=== PATIENT | female | born 1975 | race Caucasian/White ===

== ENCOUNTER 2024-03-29 09:26 | Outpatient (CLI) | payer OTHER, SELFPAY | END 2024-03-29 09:27 | disposition home or self-care (01) | PROVIDERS: Visit Provider Family Medicine | DX: R63.5 Abnormal weight gain (principal); Z13.29 Encounter for screening for other suspected endocrine disorder | CPT/HCPCS: 84439; 84443 ==

== ENCOUNTER 2024-04-26 10:44 | Emergency (ER) | payer BC, SELFPAY ==
[2024-04-26 11:23] VITALS: BP 124/90; PULSE 100; RESP 18; TEMP 36.5; O2SAT 98; BMI 28.9
--- NOTE | 2024-04-26 12:27 | CRLHL7_ITS ---
For Patients: As a result of the Century Cures Act, medical imaging exams and procedure reports are released immediately into your electronic medical record. You may view this report before your referring provider. If you have questions, please contact your health care provider. INDICATION: Left pelvic pain, bleeding. History of ablation and tubal ligation. TECHNIQUE: Ultrasound pelvis transvaginal. Real-time sonographic images with spectral and color Doppler imaging of the ovaries were obtained. COMPARISON: None available. FINDINGS: Uterus: 8.6 x 5.0 x 5 0 cm. Heterogeneous hypoechoic likely intramural fibroid along the posterior aspect of the uterine body measures 3.5 x 2.5 x 3.3 cm. Endometrium: Endometrial stripe is distended measuring 24 mm in thickness. The fundal endometrial cavity is distended and heterogeneous in appearance, measuring 2.5 x 1.7 x 2.0 cm. No definite internal blood flow is seen within this region on color Doppler. There are punctate echogenic foci along the margins of the distended endometrial cavity. Right ovary 2.4 x 1.9 x 1.5 cm (volume 3.6 mL). Left ovary 2.7 x 1.8 x 1.9 cm (volume 5 mL). No ovarian or adnexal masses. Normal arterial and venous blood flow is demonstrated in the right ovary. Venous spectral Doppler waveforms were seen within the left ovary; however, arterial waveforms were difficult to obtain due to deep pelvic position of the ovary. Cul-de-sac: No significant free fluid. IMPRESSION: : 1. Distended fundal endometrial stripe with heterogeneous avascular internal contents. Findings are favored to represent blood products that appear localized possibly due to endometrial septations related to prior ablation. Punctate echogenic endometrial foci may represent small calcifications versus gas. Recommend gynecologic consultation and correlation for signs and symptoms of infection. Repeat imaging should be performed to evaluate for resolution. 2. Heterogeneous 3.5 cm probable intramural fibroid along the posterior uterine body. 3. Normal sonographic appearance of the ovaries. Left ovarian arterial blood flow was difficult to obtain due to deep pelvic positioning. Spectral waveforms were otherwise unremarkable. Dictated by Ignacia Ribera MD @ 04/26/2024 1:34:33 PM (Electronically Signed)
--- NOTE | 2024-04-26 13:04 | ED_ITS ---
HPI - General Adult General Date Seen: 04/26/24 Chief complaint: Abdominal Pain Stated complaint: Bad cramps and spotting Time Seen by Provider: 04/26/24 12:14 Source: patient Mode of arrival: ambulatory Limitations: no limitations History of Present Illness HPI narrative: Patient is a 48-year-old female presenting to the emergency department for pelvic pain and vaginal bleeding. States for the past 2 or 3 days she has been having some spotting and left-sided pelvic pain. She states is typically a cramping sensation but occasionally get sharp in nature. Denies ever having symptoms like this before. States she has not had a period in over 20 years due to an ablation she had due to heavy vaginal bleeding 20+ years ago. States she does not remember having menstrual cramping this bad. States the pain is tolerable right now. Will occasionally get nausea with the pain but is currently not nauseated. Nothing particular makes it better or worse. Describes the bleeding as just spotting relatively minor. Has not noticed any abdominal pain. No history of ovarian cyst. Denies fevers, chills, chest pain, shortness of breath, lightheadedness, dizziness, weakness, numbness. No other concerns noted at this time. Has had multiple previous abdominal surgeries including tubal ligation and cholecystectomy. States this morning she noticed some dark runny stool. Related Data Home Medications ?Medication ?Instructions ?Recorded ?Confirmed cyclobenzaprine 10 mg tablet 10 mg PO BID PRN 02/27/24 03/29/24 dextroamphetamine-amphetamine ER cap PO .ud 03/29/24 03/29/24 10 mg 24hr capsule,extend release Previous Rx's ?Medication ?Instructions ?Recorded zolpidem 10 mg tablet 10 mg PO QHS PRN sleep #14 tabs 02/27/24 dextroamphetamine-amphetamine ER 20 mg PO QAM #30 caps 03/29/24 20 mg 24hr capsule,extend release phentermine 30 mg capsule 30 mg PO QDAY #30 caps 03/29/24 prazosin 1 mg capsule 1 mg PO QHS #30 caps 03/29/24 levothyroxine 25 mcg tablet 25 mcg PO QDAY #90 tabs 04/01/24 clonazepam 0.5 mg tablet See Rx Instructions PO .ud #45 tabs 04/25/24 amoxicillin 875 mg-potassium 1 tab PO BID #10 tabs 04/26/24 clavulanate 125 mg tablet ketorolac 10 mg tablet 10 mg PO Q6H PRN pain #20 tabs 04/26/24 medroxyprogesterone 10 mg tablet 20 mg (2 x 10 mg) PO TID 5 days 04/26/24 (Provera) #30 tabs Allergies Allergy/AdvReac Type Severity Reaction Status Date / Time prochlorperazine (From Allergy Severe Anaphylaxis Verified 03/29/24 08:41 Compazine) promethazine (From Phenergan) Allergy Severe Anaphylaxis Verified 03/29/24 08:41 Review of Systems Status of ROS: Reports: 10 or more systems reviewed and unremarkable except as noted in History and below [facility] Medical History Sleep deprivation ?Z72.820 - Sleep deprivation (ICD-10) Surgical History Status post breast biopsy ?Z98.890 - Other specified postprocedural states (ICD-10) Status post breast reduction ?Z98.890 - Other specified postprocedural states (ICD-10) Status post bilateral cataract extraction ?Z98.41 - Cataract extraction status, right eye (ICD-10) ?Z98.42 - Cataract extraction status, left eye (ICD-10) Status post LASIK surgery ?Z98.890 - Other specified postprocedural states (ICD-10) Status post tonsillectomy and adenoidectomy ?Z90.89 - Acquired absence of other organs (ICD-10) Status post cholecystectomy ?Z90.49 - Acquired absence of other specified parts of digestive tract (ICD- 10) Status post appendectomy ?Z90.49 - Acquired absence of other specified parts of digestive tract (ICD- 10) History of shoulder surgery ?Z98.890 - Other specified postprocedural states (ICD-10) Status post arthroscopy of right knee ?Z98.890 - Other specified postprocedural states (ICD-10) Status post left knee surgery ?Z98.890 - Other specified postprocedural states (ICD-10) Social History Smoking Status: Former smoker What tobacco products do you use: cigarettes Smoking packs per day: 0.3 Smoking cigarettes per day: 6.0 Years smoked: 3 Smoking pack-years: 0.90 Do you use any of these nicotine containing products: None Second hand tobacco smoke exposure: No How often do you have a drink containing alcohol: monthly or less AUDIT-C Alcohol total score: 1 Non-prescribed substance use: denies use service: No Exam Narrative: Exam Narrative: Const: Well-nourished, Well-developed, in mild distress Eyes: PERRL, no conjunctival injection, and symmetrical lids HENT: Atraumatic external nose and ears. Moist mucous membranes. Neck: Symmetric, trachea midline, No thyromegaly. CVS: RRR, No murmurs or gallops. Peripheral pulses 2+ and equal in all extremities RESP: Unlabored respiratory effort. Clear to auscultation bilaterally. GI: Nontender/Nondistended, No rebound or guarding. : Mild left-sided pelvic tenderness MSK:Extremities w/o deformity, Normal Active ROM Skin: Warm, Dry. No rashes or lesions. Neuro: Normal Muscle tone, No focal neurological deficits. Psych: Awake, Alert, & Oriented x3. Appropriate mood and affect. Const: Vital Signs, click to edit/add: Vital Signs - 24 hr 04/26/24 11:23 04/26/24 14:15 Temperature 97.7 F Pulse Rate [Pulse Oximeter] 100 82 Respiratory Rate 18 18 Blood Pressure [Ri ght Upper Arm] 124/90 H 146/100 H Pulse Oximetry 98 99 Oxygen Delivery Me thod Room Air Course Vital Signs Vital signs: Initial Vital Signs Temperature 97.7 F 04/26/24 11:23 Temperature Source Temporal Artery Scan 04/26/24 11:23 Pulse Rate 100 04/26/24 11:23 Respiratory Rate 18 04/26/24 11:23 Blood Pressure 124/90 H 04/26/24 11:23 Blood Pressure Mean 101 04/26/24 11:23 Pulse Oximetry 98 04/26/24 11:23 Vital Signs Temperature 97.7 F 04/26/24 11:23 Pulse Rate 100 04/26/24 11:23 Respiratory Rate 18 04/26/24 11:23 Blood Pressure 124/90 H 04/26/24 11:23 Pulse Oximetry 98 04/26/24 11:23 Temperature 97.7 F 04/26/24 11:23 Pulse Rate 82 04/26/24 14:15 Respiratory Rate 18 04/26/24 14:15 Blood Pressure 146/100 H 04/26/24 14:15 Pulse Oximetry 99 04/26/24 14:15 Oxygen Delivery Method Room Air 04/26/24 14:15 Medical Decision Making MDM Narrative Medical decision making narrative: Patient is a 48-year-old female presenting to the emergency department for vaginal bleeding and pelvic pain. Have some my are concern for intermittent ovarian torsion and will do an ultrasound. This also help evaluate for any time endometrial cancer or other abnormalities. Will order a CBC, BMP, test for better evaluation possible anemia or other abnormalities. She is not having any abdominal pain at this time I do not believe a CT scan is necessary but will continue to monitor and re-evaluate as test come back. She is not requesting anything for pain or nausea at this time. Lab work shows elevated white count 17.74. Ultrasound shows findings consistent with endometrial septations from her prior ablation. I spoke to Dr. Gamez of [facility] and she came to evaluate the patient. She believes the patient has a complication from her previous ablation that is now becoming infected. She evaluated the patient did take some samples. At this time recommends Augmentin b.i.d. for 5 days, Provera 20 mg t.i.d. for 5 days and Toradol for pain. I will give her a shot of Toradol prior to discharge. She has been stable throughout her time in the emergency department and she is safe for discharge. She is agreeable to this plan Lab Data Labs: Lab Results 04/26/24 Range/Units 12:53 WBC 17.74 H (4.50-11.00) K/uL RBC 4.76 (4.00-5.20) m/uL Hgb 14.9 (12.0-16.0) gm/dL Hct 44.3 (33.0-51.0) % MCV 93 (80-100) fL MCH 31 (26-34) pg MCHC 34 (32-36) gm/dL RDW Coeff of Jessa 12.0 (11.5-15.5) % Plt Count 282 (140-440) K/uL Neut % (Auto) 77.5 H (42.0-72.0) % Lymph % (Auto) 15.3 L (20-44) % [place] % (Auto) 5.8 (0.0-11.0) % Eos % (Auto) 1.1 (0.0-7.0) % Baso % (Auto) 0.1 (0.0-3.0) % Neut # (Auto) 13.70 H (1.7-7.0) K/uL Lymph # (Auto) 2.70 (0.90-2.90) K/uL [place] # (Auto) 1.00 H (0.00-0.90) K/UL Eos # (Auto) 0.20 (0.00-0.50) K/uL Baso # (Auto) 0.00 (0.00-0.30) K/uL Abs Immat Gran (auto) 0.00 (0.00-0.30) K/uL Imm/Tot Granulo (auto) 0.2 % Sodium 139 (135-149) mmol/L Potassium 3.9 (3.6-5.1) mmol/L Chloride 102 (96-114) mmol/L Carbon Dioxide 29 (20-32) mmol/L Anion Gap 8 (7-15) mEq/L BUN 13 (5-24) mg/dL Creatinine 0.8 (0.5-1.5) mg/dL Estimated Creat Clear 67.28 Estimated GFR 90 ml/min Glucose 93 (60-115) mg/dL Calcium 9.6 (8.4-10.6) mg/dL HCG, Qual Negative (Negative) Imaging Data Transvaginal ultrasound: Attestation: I have reviewed the pertinent imaging results. Radiologist's impression: 1. Distended fundal endometrial stripe with heterogeneous avascular internal contents. Findings are favored to represent blood products that appear localized possibly due to endometrial septations related to prior ablation. Punctate echogenic endometrial foci may represent small calcifications versus gas. Recommend gynecologic consultation and correlation for signs and symptoms of infection. Repeat imaging should be performed to evaluate for resolution. 2. Heterogeneous 3.5 cm probable intramural fibroid along the posterior uterine body. 3. Normal sonographic appearance of the ovaries. Left ovarian arterial blood flow was difficult to obtain due to deep pelvic positioning. Spectral waveforms were otherwise unremarkable. Dictated by Ignacia Ribera MD @ 04/26/2024 1:34:33 PM Discharge Plan Discharge Clinical Impression: Pelvic pain Patient Disposition: Home, Self-Care Condition: Stable Instructions: Pelvic Pain in Women (ED) Additional Instructions: Take Tylenol and the Toradol as needed for your pain. Take the Augmentin as directed. May she also take Provera of 3 times a day. [facility] They will get you on the schedule. Prescriptions: New ketorolac 10 mg tablet 10 mg PO Q6H PRN (Reason: pain) Qty: 20 0RF Rx Instructions: maximum total duration of 5 days from all oral, intranasal, or parenteral formulations amoxicillin-pot clavulanate 875-125 mg tablet 1 tab PO BID Qty: 10 0RF medroxyprogesterone [Provera] 10 mg tablet 20 mg PO TID 5 Days Qty: 30 0RF No Action prazosin 1 mg capsule 1 mg PO QHS Qty: 30 3RF phentermine 30 mg capsule 30 mg PO QDAY Qty: 30 2RF Rx Instructions: must administer 2 hours after breakfast dextroamphetamine-amphetamine 20 mg capsule,extended release 24hr 20 mg PO QAM Qty: 30 0RF cyclobenzaprine 10 mg tablet 10 mg PO BID PRN zolpidem 10 mg tablet 10 mg PO QHS PRN (Reason: sleep) Qty: 14 1RF dextroamphetamine-amphetamine 10 mg capsule,extended release 24hr PO .ud Rx Instructions: 2 tabs qam/ 1 tab in afternoon levothyroxine 25 mcg tablet 25 mcg PO QDAY Qty: 90 1RF clonazepam 0.5 mg tablet See Rx Instructions PO .ud Qty: 45 2RF Rx Instructions: 1-2 at bedtime prn Follow Up/Referrals: Vaibhav Smyth MD [Primary Care Provider] - Stand Alone Forms: Undertone Info Instructions
--- OUTSIDE RECORDS SUMMARY | 2024-04-26 13:07 | XMS_ITS | Clinical Summary ---
Author Organization [facility] Address [address] [place] [address] Care Team Providers Care Legal Instructor Name Role Phone Alma Valencia Tyler PT Unavailable [phone] Leonor Draper MD Unavailable Jerri Fink RN Unavailable + [phone] Theresa Carpio MD Primary Care Provider [phone] Theresa Carpio MD Unavailable [phone] Rahul Orourke MD Unavailable [phone] Allergies Active Allergy Reactions Criticality Noted Date Comments Prochlorperazine Other (See Comments) 5 Seizure Promethazine Anaphylaxis High 08/08/2016 Not allergic to codiene Promethazine Hcl Other (See Comments) 3 Seizure Phenergan Medications aspirin-acetaminop hen-caffeine (EXCEDRIN MIGRAINE) 250-250-65 MG per tablet Take 2 tablets by mouth as needed Active metoclopramide (REGLAN) 10 MG tablet Take 1 tablet (10 mg) by mouth 4 times daily as needed (Nausea and vomiting) 20 tablet 3 Active albuterol (PROAIR HFA/PROVENTIL HFA/VENTOLIN HFA) 108 (90 Base) MCG/ACT inhalerIndications :Mild intermittent asthma without complication Inhale 2 puffs into the lungs every 6 hours as needed for shortness of breath, wheezing or cough 18 g 1 3 Active VYVANSE 60 MG capsuleIndications :Attention deficit disorder, unspecified hyperactivity presence Take 1 capsule (60 mg) by mouth every morning 30 capsule 3 Active Active Problems Problem Noted Date Diagnosed Date ADD (attention deficit disorder) 12/26/2022 Medical marijuana use 12/26/2022 Overview (12/26/2022): For migraines H/O bilateral breast reduction surgery 3 Dyslipidemia 01/25/2017 Intractable chronic migraine without aura and without status migrainosus 09/07/2016 GERD (gastroesophageal reflux disease) 3 Asthma, mild intermittent 07/03/2012 Obesity 07/03/2012 Seasonal allergic rhinitis 07/03/2012 H/O combined form of nonsenile cataract 06/29/19 13 Resolved Problems Problem Noted Date Diagnosed Date Resolved Date Pain in joint, lower leg 06/30/2008 Overview (04/18/2019): Overview: IMO Update 01/11 Immunizations Name Administration Dates Next Due COVID-19 MONOVALENT 12+ (Pfizer) 05/21/2020,04/04 Flu, Unspecified 12/31/2011 [id number] Novel Flu- Nasal 01/23/2009 Influenza (H1N1) 01/23/2009 Influenza (IIV3) PF 04/01/2014, 1,03/25/2010,2008 Influenza Vaccine >6 months,quad, PF ,02/02/2018,01/11/2017,2015,02/13/2015,01/03/2013 Influenza, Whole Virus 02/06/2008,01/16/2007 MMR 09/21/2005 Meningococcal ACWY (Menactra ) 07/21/2011 Mumps 11/22/2005 TD,PF 7+ (Tenivac) 11/22/2005 TDAP Vaccine (Adacel) 11/11/2011 Family History Medical History Relation Comments Heart Disease Father irregular heartb eat C.A.D. Other 1 grandparents Diabetes Other 2 grandparents Hyperlipidemia Other 2 Hypertension Other 2 Other - See Comments Other 3 maternal fx multiple births Asthma No family hx of Breast Cancer No family hx of Colon Cancer No family hx of Thyroid Disease No family hx of Relation Status Comments Father Alive Mother Alive Other 1 Other 2 Other 3 Social History Tobacco Use Types Packs/Day Years Used Date Smoking Tobacco: Former Cigarettes 1 3 0 07/29/1993 - 07/29/1996 Smokeless Tobacco: Never Tobacco Cessation:Counseling Given: Not Answered Comments:no passive exposure Alcohol Use Standard Drinks/Week Comments No 0 (1 standard drink = 0.6 oz pur e alcohol) PHQ-2 Answer Date Recorded PHQ-2 Score 0 12/26/2022 Adolescent Education Answer Date Record ed Getting School Help Needed Not on file 12/23 Food Insecurity Answer Date Recorded Within the past 12 months, d id you worry that your food would run out before you got money to buy more? No 12/26/2022 Within the past 12 months, d id the food you bought just not last and you didn t have money to get more? No 12/26/2022 Housing Stability Answer Date Recorded Do you have housing? (Breanna g is defined as stable permanent housing and does not include staying ouside in a car, in a tent, in an abandoned building, in an overnight halfway, or couch-surfing.) Yes 12/26/2022 Are you worried about losing your housing? No 12/26/2022 Financial Resource Strain Answer Date R ecorded Within the past 12 months, h ave you or your family members you live with been unable to get utilities (heat, electricity) when it was really needed? No 12/26/2022 Transportation Needs Answer Date Record ed Within the past 12 months, h as lack of transportation kept you from medical appointments, getting your medicines, non-medical meetings or appointments, work, or from getting things that you need? No 12/26/2022 Interpersonal Safety Answer Date Record ed Do you feel physically and e motionally safe where you currently live? Yes 12/26/2022 Within the past 12 months, h ave you been hit, slapped, kicked or otherwise physically hurt by someone? No 12/26/2022 Within the past 12 months, h ave you been humiliated or emotionally abused in other ways by your partner or ex-partner? 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 Not on file Last Filed Vital Signs Vital Sign Reading Time Taken Comments Blood Pressure 124/80 01/25/2023 9:15 AM CDT Pulse 89 01/25/2023 9:15 AM CDT Temperature 36.3 C (97.3 F) 01/25/2023 9:15 AM CDT Respiratory Rate 14 01/09/2023 11:25 AM CDT Oxygen Saturation 100% 01/25/2023 9:15 AM CDT Inhaled Oxygen Concentration - - Weight 70.3 kg (155 lb) 01/25/2023 9:15 AM CDT Height 157.5 cm (5' 2) 01/25/2023 9:15 AM CDT Body Mass Index 28.35 01/25/2023 9:15 AM CDT Plan of Treatment Health Maintenance Due Date Last Done Comments ANNUAL REVIEW OF HM ORDERS 1974 CT COLONOGRAPHY 1974 FIT 1974 FLEX SIG 1974 sDNA (Cologuard) 1974 HEPATITIS B IMMUNIZATION (1 of 3 - 19+ 3-dose series) 1993 Pneumococcal Vaccine: Pediatrics (0 to 5 Years) and At-Risk Patients (6 to 49 Years) (1 of 2 - PCV) 1993 ASTHMA ACTION PLAN 06/14/2017 06/14/2016, 0 06/14/2016, 06/14/2016 LIPID 01/12/2018 01/12/2017 HPV TEST 09/15/2019 09/14/2018, 01/11/2017 PAP 09/15/2019 09/14/2018, 01/11/2017 YEARLY PREVENTIVE VISIT 09/15/2019 09/14/2018, 01/11 DTAP/TDAP/TD IMMUNIZATION (2 - Td or Tdap) 11/10/2021 11/11/2011, 11/22/2005 ASTHMA CONTROL TEST 06/26/2023 12/26/2022, 01/11/2017, 06/14/2016, Additional history exists COVID-19 Vaccine ( season) 2023 05/21/2020, 04/29/2020 INFLUENZA VACCINE (#1) 2023 9, 02/02/2018, 01/11/2017, Additional history exists PHQ-2 (once per calendar year) 2024 12/26/2022, 12/26/2022, 01/09/2019, Additional history exists ZOSTER IMMUNIZATION (1 of 2) 2024 MAMMO SCREENING 12/29/2024 12/29/2022 GLUCOSE 12/29/2025 12/29/2022, 12/02, 12/12/2022, Additional history exists ADVANCE CARE PLANNING 12/30/2027 12/29/2022, 017 COLONOSCOPY 01/06/2028 01/05/2023 COLORECTAL CANCER SCREENING 01/06/2028 RSV VACCINE (1 - 1-dose 75+ series) 2049 MENINGITIS IMMUNIZATION Aged Out 07/21/2011 No l onger eligible based on patient's age to complete this topic HEPATITIS C SCREENING Completed 05/28/2018 HIV SCREENING Completed 05/28/2018 HPV IMMUNIZATION Aged Out No longer e ligible based on patient's age to complete this topic RSV MONOCLONAL ANTIBODY Aged Out No l onger eligible based on patient's age to complete this topic Medical Devices Implanted Type Area Game Technician Device Identifier Shelf Expiration Date Model / Serial / Lot Lens-Tecnis Multifocal 18.0 Implanted:Qty: 1 on 07/10/2012 by Inder Magdaleno MD at [facility] Left: Eye 03/11/2016 [id number] / [id number] / Procedures Procedure Name Priority Date/Time Associated Diagnosis Comments MA DIAGNOSTIC BILATERAL W/ SIXTO Routine 12/29/2022 1:16 PM CDT Mass of upper outer quadrant of left breast COMPREHENSIVE METABOLIC PANEL Routine 12/29/2022 10:09 AM CDT Preop general physical exam A PAP THIN LAYER SCREEN Routine 09/14/2018 3:12 PM CDT Screening for cervical cancer HPV HIGH RISK TYPES DNA CERVICAL Routine 09/14/2018 3:12 PM CDT Screening for cervical cancer HEPATITIS C (HIM EXTERNAL RESULT) Routine 05/28/2018 2:31 PM SEPARATOR INSERTER HIV ANTIGEN ANTIBODY COMBO Routine 05/28/2018 LIPID PROFILE Routine 01/12/2017 7:45 AM CDT Well woman exam with routine gynecological exam ASTHMA CONTROL TEST - HIM SCAN Routine 06/14/2016 1:45 PM CDT ASTHMA ACTION PLAN Routine 06/14/2016 9: 23 AM CDT from Last 3 Months or Most Recently Relevant to Health Maintenance Results * MA Diagnostic Bilateral w/Sixto (12/29/2022 1:16 PM CDT) Anatomical Region Laterality Modality Breast Bilateral Mammography Impressions 12/29/2022 2:01 PM CDT IMPRESSION: BI-RADS CATEGORY: 4 - Suspicious. Hypoechoic mass in the left breast measuring up to 2.9 cm, for which ultrasound-guided biopsy is recommended. Crescentic hypoechoic structure at 11 o'clock in the right breast, possibly an intramammary lymph node. There is also some slightly disorganized appearing fat at 12 o'clock in the right breast. Six-month follow-up ultrasound of these findings is recommended. RECOMMENDED FOLLOW-UP: Biopsy. LINDSAY PARKS MD Narrative 12/29/2022 2:01 PM CDT EXAM: MA DIAGNOSTIC BILATERAL W/ SIXTO, US BREAST BILATERAL LIMITED 1-3 QUADRANTS, 12/29/2022 1:16 PM COMPARISONS: None. HISTORY: left upper outer - present for years - pea sized; Mass of upper outer quadrant of left breast BREAST DENSITY: Scattered fibroglandular densities. FINDINGS: There is a well-circumscribed mass at the site of the palpable abnormality in the lateral left breast. There is a subtle asymmetry in the right breast at approximately 12 o'clock. There are benign calcifications in both breasts.. Ultrasound of both breasts was performed. In the left breast, at 4 o'clock, 6 cm in the nipple, there is a hypoechoic mass measuring 2.9 x 2 x 0.9 cm. No significant internal vascularity. In the right breast at 12 o'clock, there is some slightly disorganized appearing fat, possibly scarring from prior breast reduction. At 11 o'clock in the right breast, there is a somewhat crescentic hypoechoic structure with a questionable fatty hilum measuring up to 0.6 cm, possibly an intramammary lymph node us Theresa Carpio MD IMG MAMMOGRAPHY ORDERABLES Fi nal Result * Comprehensive metabolic panel (BMP + Alb, Alk Phos, ALT, AST, Total. Bili, TP) (12/29/2022 10:09 AMCDT) Sodium 139 135 - 145 mmol/L 12/29/2022 12:24 PM CDT [facility] Comment:Reference intervals for this test were updated on 12/27/2022 to more accurately reflect our healthy population. There may be differences in the flagging of prior results with similar values performed with this method. Interpretation of those prior results can be made in the context of the updated reference intervals. Potassium 3.7 3.4 - 5.3 mmol/L 12/29/2022 12:24 PM CDT [facility] Carbon Dioxide (CO2) 23 22 - 29 mmol/L 12/29/2022 12:24 PM CDT [facility] Anion Gap 14 7 - 15 mmol/L 12/29/2022 12:24 PM CDT [facility] Urea Nitrogen 10.0 6.0 - 20.0 mg/dL 12/29/2022 12:24 PM CDT [facility] Creatinine 0.86 0.51 - 0.95 mg/dL 12/29/2022 12:24 PM CDT [facility] GFR Estimate 83 >60 mL/min/1. 73m2 12/29/2022 12:24 PM CDT [facility] Calcium 9.9 8.6 - 10.0 mg/dL 12/29/2022 12:24 PM CDT [facility] Chloride 102 98 - 107 mmol/L 12/29/2022 12:24 PM CDT [facility] Glucose 82 70 - 99 mg/dL 12/29/2022 12:24 PM CDT [facility] Alkaline Phosphatase 63 35 - 104 U/L 12/29/2022 12:24 PM CDT [facility] AST 18 0 - 45 U/L 12/29/2022 12:24 PM CDT [facility] Comment:Reference intervals for this test were updated on 09/12/2022 to more accurately reflect our healthy population. There may be differences in the flagging of prior results with similar values performed with this method. Interpretation of those prior results can be made in the context of the updated reference intervals. ALT 17 0 - 50 U/L 12/29/2022 12:24 PM CDT [facility] Comment:Reference intervals for this test were updated on 09/12/2022 to more accurately reflect our healthy population. There may be differences in the flagging of prior results with similar values performed with this method. Interpretation of those prior results can be made in the context of the updated reference intervals. Protein Total 7.1 6.4 - 8.3 g/dL 12/29/2022 12:24 PM CDT [facility] Albumin 4.8 3.5 - 5.2 g/dL 12/29/2022 12:24 PM CDT [facility] Bilirubin Total 0.6 <=1.2 mg/dL 12/29/2022 12:24 PM CDT [facility] Blood BLOOD SPECIMEN / Unknown Venipuncture / Unknown 12/29/2022 10:09 AM CDT 12/29/2022 10:09 AM CDT us Bina Chen C ENGINEER LAB - BLOOD ORDERABLES Final Result [facility] [address] Room [address] [place] [id number] [phone] * (ABNORMAL) A pap thin layer screen with HPV - recommended age 30 - 65 years (select HPV order below) (09/14/2018 3:12 PM CDT) PAP ASC-US(A) YRN Lawson Report Patient Name: SEEMA CORDERO MR#: [id number] Specimen #: [id number] Collected: 09/14/2018 Received: 09/18/2018 Reported: 09/24/2018 14:24 Ordering Phy(s): MARINA ALEJANDRO For improved result formatting, select 'View Enhanced Report Format' under Linked Documents section. SPECIMEN/STAIN PROCESS: Pap thin layer prep screening (Surepath) Pap-Cyto x 1, HPV ordered x 1 SOURCE: Cervical, endocervical Pap thin layer prep screening (Surepath) SPECIMEN ADEQUACY: Satisfactory for evaluation. -Transformation zone component present. CYTOLOGIC INTERPRETATION: Epithelial cell abnormality: squamous cell: atypical squamous cells-of undetermined significance (ASC-US). Electronically signed out by: Waqar Marie M.D. CLINICAL HISTORY: Ablation, A previous normal pap Date of Last Pap: 01/11/17, Papanicolaou Test Limitations: Cervical cytology is a screening test with limited sensitivity; regular screening is critical for cancer prevention; Pap tests are primarily effective for the diagnosis/preventi on of squamous cell carcinoma, not adenocarcinomas or other cancers. COLLECTION SITE: Client: [facility] Location: [facility] (B) The technical component of this testing was completed at the [facility], with the professional component performed at the [facility], [address] [place] [address] ([phone]) COPATH Cytologic material (specimen) 09/14/2018 3:12 PM CDT 09/18/2018 8:30 AM CDT Marina Alejandro NP LAB - OPTIME CLINICAL SPECIMEN F inal Result COPATH * HPV High Risk Types DNA Cervical (09/14/2018 3:12 PM CDT) HPV Source [facility] 09/14/2018 3:12 PM CDT [facility] HPV 16 DNA Negative NEG^Nega tive 09/25/2018 12:[address] [facility] HPV 18 DNA Negative NEG^Nega tive 09/25/2018 12:[address] [facility] Other HR HPV Negative NEG^Nega tive 09/25/2018 12:[address] [facility] Final Diagnosis This patient's sample is negative for HPV DNA. 09/25/2018 12:[address] [facility] Comment: This test was developed and its performance characteristics determined by the [facility], Molecular Diagnostics Laboratory. It has not been cleared or approved by the FDA. The laboratory is regulated under CLIA as qualified to perform high-complexity testing. This test is used for clinical purposes. It should not be regarded as investigational or for research. (Note) METHODOLOGY: The Debbie etelvina 4800 system uses automated extraction, simultaneous amplification of HPV (L1 region) and beta-globin, followed by real time detection of fluorescent labeled HPV and beta globin using specific oligonucleotide probes . The test specifically identifies types HPV 16 DNA and HPV 18 DNA while concurrently detecting the rest of the high risk types (31, 33, 35, 39, 45, 51, 52, 56, 58, 59, 66 or 68). COMMENTS: This test is not intended for use as a screening device for women under age 30 with normal cervical cytology. Results should be correlated with cytologic and histologic findings. Close clinical followup is recommended. Specimen Description Cervical Cells 09/14/2018 3:[address] [facility] Comment:[id number] Cervical Cells CERVIX UTERI STRUCTURE / Unknown 09/14/2018 3:12 PM CDT 09/17/2018 10:55 AM CDT us Marina Alejandro NP LAB - BLOOD ORDERABLES Final Res ult [facility] [address] [place], [place] [address] [place] [address] * Hepatitis C (HIM External Result) (05/28/2018 2:31 PM SEPARATOR INSERTER) Hep C HIM See Scanned Document [facility] 05/28/2018 2:31 PM SEPARATOR INSERTER Narrative [facility] - 05/28/2018 2:31 PM SEPARATOR INSERTER See Care Everywhere - [facility] us Provider Outside LAB - HIM EXTERNAL RESULT Final Result [facility] [address] [phone] * HIV Antigen Antibody Combo (05/28/2018) HIV Antigen Antibody Combo Nonreactive Nonreactive [facility] Comment:HIV Screen includes testing for HIV-1 antigen and antibodies to both HIV-1 and HIV-2. Blood specimen (specimen) 05/28/2018 Narrative [facility] - 05/28/2018 See Care Everywhere- [facility]. us Provider Outside LAB - BLOOD ORDERABLES Final Re sult [address] [address] [phone] * (ABNORMAL) Lipid Profile (01/12/2017 7:45 AM CDT) Cholesterol 275(H) <200 mg/dL 01/12/2017 5:44 PM CDT [facility] Comment:Desirable: <200 mg/d l Triglycerides 270(H) <150 mg/dL 01/12/2017 5:44 PM CDT [facility] Comment: Borderline high: 150-199 mg/dl High: 200-499 mg/dl Very high: >499 mg/dl HDL Cholesterol 40(L) >49 mg/dL 5:44 PM CDT [facility] LDL Cholesterol Calculated 181(H) <100 mg/dL 01/12/2017 5:44 PM T [facility] Comment: Above desirable: 100-129 mg/dl Borderline High: 130-159 mg/dL High: 160-189 mg/dL Very high: >189 mg/dl Non HDL Cholesterol 235(H) <130 mg/dL 01/12/2017 5:44 PM T [facility] Comment: Above Desirable: 130-159 mg/dl Borderline high: 160-189 mg/dl High: 190-219 mg/dl Very high: >219 mg/dl Blood specimen (specimen) 01/12/2017 7:45 AM CDT 01/12/2017 5:10 PM CDT [facility] LAB - BLOOD ORDERABLES Final Result [facility] [address] [address], [facility] [phone] from Last 3 Months or Most Recently Relevant to Health Maintenance [place] [facility] RISK MANAGEMENT Care Teams Legal Instructor Relationship Specialty Start Date End Date Theresa Carpio MD [address] [place] [address] PCP - General Family Medicine 12/26/22 Alma Valencia, PT [address] [facility] [address] [place] [address] Specialty Box Person Physical Medicine and Rehabilitation 02/12/19 Leonor Draper MD [address] [place] [address] [id number] Physical Medicine and Rehabilitation 02/12/19 Jerri Fink, [place] [address] Specialty Box Person Physical Medicine and Rehabilitation 02/12/19 Theresa Carpio MD [address] [place] [address] [id number] Assigned PCP 01/07/23 Rahul Orourke MD [address] [place] [address] [id number] Assigned Surgical Provider 02/04/23
--- OUTSIDE RECORDS SUMMARY | 2024-04-26 13:07 | XMS_ITS | Encounter Summary ---
Author Organization [facility] Address [facility] [place] [address] Care Team Providers Care Net Developer Name Role Phone Edilberto Lopez MD Primary Care Provider [phone] Edilberto Lopez MD Unavailable Alma Valencia PT Unavailable [phone] Loenor Draper MD Unavailable Jerri Fink RN Unavailable [phone] Leonor Draper MD Unavailable Claude Amaro MD Unavailable No Ref-Primary, Physician Primary Care Provider Theresa Carpio MD Primary Care Provider [phone] Theresa Carpio MD Unavailable [phone] Theresa Carpio MD Unavailable [phone] Paty Dacosta NP Unavailable Rahul Orourke MD Unavailable [phone] Reason for Visit * Reason Comments Medication Refill Valium Encounter Details Date Type Department Care Team (Late st Contact Info) Description 06/28/2017 [facility] [address] [facility] [place] [address] Edilberto Lopez MD [address] [facility] [place] [address] Medication Refill (Valium) Social History Tobacco Use Types Packs/Day Years Used Date Smoking Tobacco: Former Cigarettes Q uit: 07/29/1996 Smokeless Tobacco: Never Comments:no passive exposure Alcohol Use Standard Drinks/Week Comments No 0 (1 standard drink = 0.6 oz pur e alcohol) Comments No Sex and Gender Information Value Date Recorded Sex Assigned at Not on file Legal Sex Female 1:27 AM 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 * Telephone Encounter - Macie Cheek RN - 06/28/2017 2:23 PM CDT Valium Last Written Prescription Date: 12/19/16 Last Fill Quantity: 5, # refills: 0 Last Office Visit: with Dr. Lopez 01/25/17 and Sydnee Carter MD Future Office visit: Dr. Montejo 07/04/17 Routing refill request to provider for review/approval because: Drug not on the [facility], [facility] or Health refill protocol or controlled substance documented in this encounter Plan of Treatment Not on file documented as of this encounter Visit Diagnoses Diagnosis Vertigo- Primary Dizziness and giddiness documented in this encounter Additional Health Concerns Infection Onset Date Last Indicated Resolved Time Rule Out COVID-19 10/11/2019 10/11/2019 10/14/2019 5:25 PM CDT Rule Out COVID-19 02/03/2020 02/03/2020 02/04/2020 4:32 PM MARKETING DATABASE CONSULTANT Rule Out COVID-19 12/12/2022 12/12/2022 12/12/2022 1:09 PM CDT COVID-19 12/12/2022 12/12/2022 01/02/2023 11:3 9 PM CDT Assessment Noted Time PHQ-9 Depression Total Score: 0 06/11/19 18 7:58 AM MARKETING DATABASE CONSULTANT documented as of this encounter Care Teams Net Developer Relationship Specialty Start [place] [address] [place] [address] PCP - General 05/30/12 06/23/22 No Ref-Primary, Physician PCP - General 06/24/22 12/25/22 [place] [address] [place] [id number] PCP - General Family Medicine 12/26/22 Edilberto Lopez MD [address] [place] [address] Assigned PCP 12/29/13 07/18/20 Alma Valencia, PT [address] [facility] [address] [place] [address] Specialty Boiler House Supervisor Physical Medicine and Rehabilitation 02/12/19 Leonor Draper MD [address] [place] [address] Physical Medicine and Rehabilitation 02/12/19 [place] [address] Specialty Boiler House Supervisor Physical Medicine and Rehabilitation 02/12/19 Leonor Draper MD [facility] [address] [place] [address] Assigned Neuroscience Provider 01/24/20 06/12/21 Claude Amaro MD [address] [place] [address] Assigned OBGYN Provider 01/24/20 04/04/20 Theresa Carpio MD [address] [facility] [place] [address] Assigned Pain Medication Provider 01/14/23 04/26/23 Theresa Carpio MD [address] [facility] [place] 287906 Assigned PCP 01/07/23 Paty Dacosta NP [address] [place] [address] Assigned Surgical Provider 01/07/23 02/03/23 Rahul Orourke MD [address] [place] [address] Assigned Surgical Provider 02/04/23 documented as of this encounter
--- OUTSIDE RECORDS SUMMARY | 2024-04-26 13:07 | XMS_ITS | Encounter Summary ---
Author Organization [place] Address [facility]0 [facility] [place] [address] Care Team Providers Care Quality Control Projectionist Name Role Phone Edilberto Lopez MD Primary Care Provider [phone] Edilberto Lopez MD Unavailable Alma Valencia PT Unavailable [phone] Leonor Draper MD Unavailable Jerri Fink RN Unavailable [phone] Leonor Draper MD Unavailable Claude Amaro MD Unavailable No Ref-Primary, Physician Primary Care Provider Theresa Carpio MD Primary Care Provider [phone] Theresa Carpio MD Unavailable [phone] Theresa Carpio MD Unavailable [phone] Paty Dacosta NP Unavailable Rahul Orourke MD Unavailable [phone] Reason for Visit * Reason Comments Medication Refill Ambien Encounter Details Date Type Department Care Team (Late st Contact Info) Description 11/18/2015 Refill [facility] [address] [facility] [place] [address] Edilberto Lopez MD [address] [facility] [place] [address] Medication Refill (Ambien) Social History Tobacco Use Types Packs/Day Years Used Date Smoking Tobacco: Former Cigarettes Q uit: 07/29/1996 Smokeless Tobacco: Never Comments:no passive exposure Alcohol Use Standard Drinks/Week Comments No 0 (1 standard drink = 0.6 oz pur e alcohol) Comments No Sex and Gender Information Value Date Recorded Sex Assigned at Not on file Legal Sex Female 1:27 AM SLIP TENDER Gender Identity Not on file Sexual Orientation Not on file 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 Lopez. Last refill for Ambien 10.21.15 #30. Last office visit 10.27.15. documented in this encounter Plan of Treatment Not on file documented as of this encounter Visit Diagnoses Diagnosis Insomnia, psychophysiological- Primary Persistent disorder of initiating or maintaining sleep documented in this encounter Additional Health Concerns Infection Onset Date Last Indicated Resolved Time Rule Out COVID-19 10/11/2019 10/11/2019 10/14/2019 5:25 PM CDT Rule Out COVID-19 02/03/2020 02/03/2020 02/04/2020 4:32 PM SLIP TENDER Rule Out COVID-19 12/12/2022 12/12/2022 12/12/2022 1:09 PM CDT COVID-19 12/12/2022 12/12/2022 01/02/2023 11:3 9 PM CDT Assessment Noted Time PHQ-9 Depression Total Score: 2 10/28/19 16 7:18 AM CDT documented as of this encounter Care Teams Quality Control Projectionist Relationship Specialty Start Date End Date Edilberto Lopez MD [address] [place] [address] PCP - General 05/30/12 06/23/22 No Ref-Primary, Physician PCP - General 06/24/22 12/25/22 Theresa Carpio MD [address] [place] [address] [place] 155406 PCP - General Family Medicine 12/26/22 Edilberto Lopez MD [address] [place], [place] [address], [place] [address] Assigned PCP 12/29/13 07/18/20 Alma Valencia, PT [address] [place] [address] [address] [place], [place] [address] Specialty Dining Room Host Physical Medicine and Rehabilitation 02/12/19 Leonor Draper MD [address] [place] [id number] Physical Medicine and Rehabilitation 02/12/19 Jerri Fink RN RETIRED [place], [place] [address] Specialty Dining Room Host Physical Medicine and Rehabilitation 02/12/19 Leonor Draper MD [address] [place] [id number] Assigned Neuroscience Provider 01/24/20 06/12/21 Claude Amaro MD [address] [place] [address] [place] [id number] Assigned OBGYN Provider 01/24/20 04/04/20 Theresa Carpio MD [address] [place] [address] [place] [address] Assigned Pain Medication Provider 01/14/23 04/26/23 Theresa Carpio MD [address] [place] [address] Assigned PCP 01/07/23 Paty Dacosta NP [address] [place] [address] Assigned Surgical Provider 01/07/23 02/03/23 Rahul Orourke MD [address] [place] [address] Assigned Surgical Provider 02/04/23 documented as of this encounter
--- OUTSIDE RECORDS SUMMARY | 2024-04-26 13:07 | XMS_ITS | Encounter Summary ---
Author Organization [place] Address [address] [place] [address] Care Team Providers Care Retreader Name Role Phone Alma Valencia Tyler PT Unavailable [phone] Leonor Draper MD Unavailable Jerri Fink RN Unavailable [phone] Theresa Carpio MD Primary Care Provider [phone] Theresa Carpio MD Unavailable Theresa Carpio MD Unavailable Paty Dacosta ELECTRONICS MANUFACTURER Unavailable Rahul Orourke MD Unavailable Encounter Details Date Type Department Care Team (Late st Contact Info) Description 01/04/2023 MyC Medical Advice [facility] [address] [place] [phone] Rocío Blair, RN Social History Tobacco Use Types Packs/Day Years Used Date Smoking Tobacco: Former Cigarettes 1 3 0 07/29/1993 - 07/29/1996 Smokeless Tobacco: Never Comments:no passive exposure [...] Date Recorded Do you have housing? 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 No / Unsure 01/05/2023 7:38 AM CDT documented as of this encounter Plan of Treatment Not on file documented as of this encounter Visit Diagnoses Not on filedocumented in this encounter Additional Health Concerns Assessment Noted Time PHQ-9 Depression Total Score: 1 12/27/19 23 11:15 AM CDT documented as of this encounter Care Teams Retreader Relationship Specialty Start Date End Date Theresa Carpio MD [address] [place] [address] PCP - General Family Medicine 12/26/22 Alma Valencia, PT [address] [facility] [address] [place], [place] [address] Specialty Magnetic Grinder Operator Physical Medicine and Rehabilitation 02/12/19 Leonor Draper MD [address] [place], [place] [address] Physical Medicine and Rehabilitation 02/12/19 Jerri Fink RN RETIRED [place], [place] [address] Specialty Magnetic Grinder Operator Physical Medicine and Rehabilitation 02/12/19 Theresa Carpio MD [address] [place] [address] Assigned Pain Medication Provider 01/14/23 04/26/23 Theresa Carpio MD [address] [place] [address] Assigned PCP 01/07/23 Paty Dacosta ELECTRONICS MANUFACTURER [address] [place] [address] Assigned Surgical Provider 01/07/23 02/03/23 Rahul Orourke MD [address] [place] [address] Assigned Surgical Provider 02/04/23 documented as of this encounter
--- OUTSIDE RECORDS SUMMARY | 2024-04-26 13:07 | XMS_ITS | Referral Summary ---
Author Organization [place] Address [address] [place] [address] Care Team Providers Care Divider Operator Name Role Phone Alma Valencia Tyler PT Unavailable [phone] Leonor Draper MD Unavailable Jerri Fink RN Unavailable [phone] Theresa Carpio MD Primary Care Provider [phone] Theresa Carpio MD Unavailable [phone] Rahul Orourke MD Unavailable [phone] Allergies Active Allergy Reactions Criticality Noted Date [...] MONOVALENT 12+ (Pfizer) 05/21/2020,04/04 Flu, Unspecified 12/31/2011 [id number] Novel Flu- Nasal 01/23/2009 Influenza (H1N1) 01/23/2009 Influenza (IIV3) PF 04/01/2014, 1,03/25/2010,2008 Influenza Vaccine >6 months,quad, PF ,02/02/2018,01/11/2017,2015,02/13/2015,01/03/2013 Influenza, Whole Virus 02/06/2008,01/16/2007 MMR 09/21/2005 Meningococcal ACWY (Menactra ) 07/21/2011 Mumps 11/22/2005 TD,PF 7+ (Tenivac) 11/22/2005 TDAP Vaccine (Adacel) 11/11/2011 Social History Tobacco Use Types Packs/Day Years [...] in an abandoned building, in an overnight fdc, or couch-surfing.) Yes 12/26/2022 Are you worried [...] on file Legal Sex Female 1:27 AM EDGE BANDING OFF BEARER Gender Identity Not on file Sexual Orientation Not on file Occupation Industry Job Start Date Job End Date [employer] Not on file Not on file Not [...] 01/25/2023 9:15 AM CDT Plan of Treatment Not on file Medical Devices Implanted Type Area Diver Helper Device Identifier Shelf Expiration Date Model / Serial / Lot Lens-Tecnis Multifocal 18.0 Implanted:Qty: 1 on 07/10/2012 by Inder Magdaleno MD at [facility] Left: Eye 03/11/2016 [id number] / [id number] / Procedures Procedure Name Priority Date/Time Associated [...] (HIM EXTERNAL RESULT) Routine 05/28/2018 2:31 PM EDGE BANDING OFF BEARER HIV ANTIGEN ANTIBODY COMBO Routine 05/28/2018 LIPID [...] - 50 U/L 12/29/2022 12:24 PM CDT [facility] [...] - 8.3 g/dL 12/29/2022 12:24 PM CDT [facility] Albumin 4.8 3.5 - 5.2 g/dL 12/29/2022 12:24 PM CDT [facility] Bilirubin Total 0.6 <=1.2 mg/dL 12/29/2022 12:24 PM CDT [facility] Blood BLOOD SPECIMEN / Unknown Venipuncture / Unknown 12/29/2022 10:09 AM CDT 12/29/2022 10:09 AM CDT us Bina Chen YIELD ENGINEER LAB - BLOOD ORDERABLES Final Result [facility] Range [facility] [address] Room [address] [place] [address], [facility] [phone] * (ABNORMAL) A pap thin layer screen with HPV - recommended age 30 - 65 years (select HPV order below) (09/14/2018 3:12 PM CDT) PAP ASC-US(A) YRN Lawson Report Patient Name: SEEMA CORDERO MR#: [id number] Specimen #: [id number] Collected: 09/14/2018 Received: 09/18/2018 Reported: 09/24/2018 14:24 [...] adenocarcinomas or other cancers. COLLECTION SITE: Client: [facility] Location: [facility] (B) The technical component of this testing was completed at the [facility], with the professional component performed at the [facility], [address] [place] [address] ([phone]) COPATH Cytologic material (specimen) 09/14/2018 3:12 PM CDT 09/18/2018 8:30 AM CDT us Marina Alejandro NP LAB - OPTIME CLINICAL SPECIMEN F inal Result COPATH * HPV High Risk Types DNA Cervical (09/14/2018 3:12 PM CDT) HPV Source [facility] 09/14/2018 3:12 PM CDT [facility] HPV 16 DNA Negative NEG^Nega tive 09/25/2018 12:34 PM CDT [facility] HPV 18 DNA Negative NEG^Nega tive 09/25/2018 12:34 PM CDT [facility] Other HR HPV Negative NEG^Nega tive 09/25/2018 12:34 PM CDT [facility] Final Diagnosis This patient's sample is negative for HPV DNA. 09/25/2018 12:34 PM CDT [facility] Comment: This test was developed and its performance characteristics determined by the [facility], Molecular Diagnostics Laboratory. It has not [...] Description Cervical Cells 09/14/2018 3:12 PM CDT [facility] Comment:[id number] Cervical Cells CERVIX UTERI STRUCTURE / Unknown 09/14/2018 3:12 PM CDT 09/17/2018 10:55 AM CDT us Marina Alejandro NP LAB - BLOOD ORDERABLES Final Res ult [facility] [address] [place] [address] [facility] [address] [place] [address] [phone] * Hepatitis C (HIM External Result) (05/28/2018 2:31 PM EDGE BANDING OFF BEARER) Hep C HIM See Scanned Document [facility] 05/28/2018 2:31 PM EDGE BANDING OFF BEARER Narrative [facility] - 05/28/2018 2:31 PM EDGE BANDING OFF BEARER See [facility] us Provider Outside LAB - HIM EXTERNAL RESULT Final Result Performing Organization Address City/[facility]/ZIP Co de Phone Number [facility] [address] [place] [address], [facility] [phone] * HIV Antigen Antibody Combo (05/28/2018) HIV Antigen Antibody Combo Nonreactive Nonreactive [facility] Comment:HIV Screen includes testing for HIV-1 antigen and antibodies to both HIV-1 and HIV-2. Blood specimen (specimen) 05/28/2018 Narrative [facility] - 05/28/2018 See Care [facility]. us Provider Outside LAB - BLOOD ORDERABLES Final Re sult [facility] [address] [place] [address], [facility] [phone] * (ABNORMAL) Lipid Profile (01/12/2017 7:45 AM CDT) Cholesterol 275(H) <200 mg/dL 01/12/2017 5:44 PM CDT [facility] Comment:Desirable: <200 mg/d l Triglycerides 270(H) <150 mg/dL 01/12/2017 5:44 PM CDT [facility] Comment: Borderline high: 150-199 mg/dl High: 200-499 mg/dl Very high: >499 mg/dl HDL Cholesterol 40(L) >49 mg/dL 7 5:44 PM CDT [facility] LDL Cholesterol Calculated 181(H) <100 mg/dL 01/12/2017 5:44 PM CDT [facility] Comment: Above desirable: 100-129 mg/dl Borderline High: 130-159 mg/dL High: 160-189 mg/dL Very high: >189 mg/dl Non HDL Cholesterol 235(H) <130 mg/dL 01/12/2017 5:44 PM CDT [facility] Comment: Above Desirable: 130-159 mg/dl Borderline high: 160-189 mg/dl High: 190-219 mg/dl Very high: >219 mg/dl Blood specimen (specimen) 01/12/2017 7:45 AM CDT 01/12/2017 5:10 PM CDT [facility] LAB - BLOOD ORDERABLES Final Result [facility] [address] [address], [facility] [phone] from Last 3 Months or Most Recently Relevant to Health Maintenance [place] [employer] Care Teams Divider Operator Relationship Specialty Start Date End Date Theresa Carpio MD [address] [place] [address] PCP - General Family Medicine 12/26/22 Alma Valencia, PT [address] [place] [address] [address] [place], [place] [address] Specialty Dramatic Director Physical Medicine and Rehabilitation 02/12/19 Leonor Draper MD [address] [place] [address] Physical Medicine and Rehabilitation 02/12/19 Jerri Fink RN RETIRED [place], [place] [address] Specialty Dramatic Director Physical Medicine and Rehabilitation 02/12/19 Theresa Carpio MD [address] [place] [address] Assigned PCP 01/07/23 Rahul Orourke MD [address] [address] Assigned Surgical Provider 02/04/23
[2024-04-26 13:12] LABS: Basophils Percent Auto 0.1 % (0.0-3.0); Eosinophils Percent Auto 1.1 % (0.0-7.0); Hematocrit 44.3 % (33.0-51.0); Hemoglobin* 14.9 gm/dL (12.0-16.0); Immature Granulocytes Pct Auto 0.2 %; Lymphocytes Percent Auto 15.3 % (20-44); Mean Corpuscular HGB Conc 34 gm/dL (32-36); Mean Corpuscular Hemoglobin 31 pg (26-34); Mean Corpuscular Volume 93 fL (80-100); Monocytes Percent Auto 5.8 % (0.0-11.0); Neutrophils Percent Auto 77.5 % (42.0-72.0); Platelet Count* 282 K/uL (140-440); Red Blood Count 4.76 m/uL (4.00-5.20); White Blood Count* 17.74 K/uL (4.50-11.00)
[2024-04-26 13:25] LABS: Slide Review Reflex No
[2024-04-26 13:31] LABS: Chloride* 102 mmol/L (96-114)
[2024-04-26 13:32] LABS: Potassium* 3.9 mmol/L (3.6-5.1); Sodium* 139 mmol/L (135-149)
[2024-04-26 13:34] LABS: Anion Gap 8 mEq/L (7-15); Carbon Dioxide* 29 mmol/L (20-32); Creatinine* 0.8 mg/dL (0.5-1.5); Est. Creatinine Clearance* 67.28; Estimated Glomerular Filt Rate 90 ml/min
[2024-04-26 13:35] LABS: Blood Urea Nitrogen* 13 mg/dL (5-24); Calcium* 9.6 mg/dL (8.4-10.6); Glucose* 93 mg/dL (60-115)
[2024-04-26 13:46] LABS: HCG Qualitative Serum* Negative (Negative)
[2024-04-26 14:15] VITALS: BP 146/100; PULSE 82; RESP 18; O2SAT 99
[2024-04-26] MEDS: KETOROLAC 30 MG/ML inj IM (15:43)
--- NOTE | 2024-04-26 15:49 | P.GYNCN_ITS ---
SOCIAL MEDIA MARKETING SPECIALIST - CN: HPI Data of Consult Time Seen by Provider: 15:49 Date Seen: 04/26/24 Consult date: 04/26/24 Primary Care Provider: Vaibhav Smyth MD Consult Narrative Reason for consult: pelvic pain Narrative: Seema Lee is a 48 year old female presenting to the emergency department for pelvic pain and vaginal bleeding. States she's having vaginal spotting and increased pelvic pain for the last two days. Reports cyclic pelvic pain that she anticipates is related to when she would have a menstrual cycle. These cyclic pain episodes became noticeable 1-2 years ago and has been worsening with time. Her history is significant for an endometrial ablation over 20 years ago. Indication was for heavy vaginal bleeding. Notably, she had tubal ligation at the age of 44. No history of ovarian cyst//STI/PID. Denies fevers, chills, chest pain, shortness of breath, lightheadedness, dizziness, weakness, numbness. Pelvic ultrasound on 04/26/2024: FINDINGS: Uterus: 8.6 x 5.0 x 5 0 cm. Heterogeneous hypoechoic likely intramural fibroid along the posterior aspect of the uterine body measures 3.5 x 2.5 x 3.3 cm. Endometrium: Endometrial stripe is distended measuring 24 mm in thickness. The fundal endometrial cavity is distended and heterogeneous in appearance, measuring 2.5 x 1.7 x 2.0 cm. No definite internal blood flow is seen within this region on color Doppler. There are punctate echogenic foci along the margins of the distended endometrial cavity. Right ovary 2.4 x 1.9 x 1.5 cm (volume 3.6 mL). Left ovary 2.7 x 1.8 x 1.9 cm (volume 5 mL). No ovarian or adnexal masses. Normal arterial and venous blood flow is demonstrated in the right ovary. Venous spectral Doppler waveforms were seen within the left ovary; however, arterial waveforms were difficult to obtain due to deep pelvic position of the ovary. Cul-de-sac: No significant free fluid. IMPRESSION: : 1. Distended fundal endometrial stripe with heterogeneous avascular internal contents. Findings are favored to represent blood products that appear localized possibly due to endometrial septations related to prior ablation. Punctate echogenic endometrial foci may represent small calcifications versus gas. Recommend gynecologic consultation and correlation for signs and symptoms of infection. Repeat imaging should be performed to evaluate for resolution. 2. Heterogeneous 3.5 cm probable intramural fibroid along the posterior uterine body. 3. Normal sonographic appearance of the ovaries. Left ovarian arterial blood flow was difficult to obtain due to deep pelvic positioning. Spectral waveforms were otherwise unremarkable. 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 It is a rare but recognize complication that can occur in women who have undergone both endometrial ablation and tubal sterilization. It occurs when bleeding from site residual endometrial tissue was obstructed due to scarring and tubal occlusion leading to cause cyclic pelvic pain. Symptoms include: Cyclic pelvic pain, dysmenorrhea, chronic pelvic pain, visible varicosity on ultrasound. Diagnosis is clinical and with the help of pelvic imaging. We talked about treatment options: Medical management(pain relief medication, hormonal/menstrual suppression, minimally invasive procedures such as embolization, but ultimately for severe cases and definitive treatment it would be hysterectomy. Seema feel strongly about pursuing hysterectomy assist diagnosis has given clarity to what she has been feeling for the last few years. I would like to do a pelvic exam to assess her pain. I offered her preoperative workup at the same time including: Pap smear and endometrial biopsy. If I am able to pass an endometrial Pipelle, sometimes that can relieve the obstruction for the time being. Additionally, if I am able to get a sample, I consented for culture to assess for micro bacterial growth. I did warn her that endometrial biopsy might not be possible in someone who has had an endometrial ablation due to scar tissue. In essence, I would not be able to access and obtain sufficient endometrial sample. She would like to try. cc:: CC: [facility] Medical History Sleep deprivation ?Z72.820 - Sleep deprivation (ICD-10) Surgical History Status post breast biopsy ?Z98.890 - Other specified postprocedural states (ICD-10) Status post breast reduction ?Z98.890 - Other specified postprocedural states (ICD-10) Status post bilateral cataract extraction ?Z98.41 - Cataract extraction status, right eye (ICD-10) ?Z98.42 - Cataract extraction status, left eye (ICD-10) Status post LASIK surgery ?Z98.890 - Other specified postprocedural states (ICD-10) Status post tonsillectomy and adenoidectomy ?Z90.89 - Acquired absence of other organs (ICD-10) Status post cholecystectomy ?Z90.49 - Acquired absence of other specified parts of digestive tract (ICD- 10) Status post appendectomy ?Z90.49 - Acquired absence of other specified parts of digestive tract (ICD- 10) History of shoulder surgery ?Z98.890 - Other specified postprocedural states (ICD-10) Status post arthroscopy of right knee ?Z98.890 - Other specified postprocedural states (ICD-10) Status post left knee surgery ?Z98.890 - Other specified postprocedural states (ICD-10) Social History Smoking Status: Former smoker What tobacco products do you use: cigarettes Smoking packs per day: 0.3 Smoking cigarettes per day: 6.0 Years smoked: 3 Smoking pack-years: 0.90 Smoking quit date/years: <= 15 years ago Do you use any of these nicotine containing products: None Second hand tobacco smoke exposure: No How often do you have a drink containing alcohol: monthly or less AUDIT-C Alcohol total score: 1 Non-prescribed substance use: denies use service: No Meds Home Medications and Allergies Home Medications ?Medication ?Instructions ?Recorded ?Confirmed ?Type cyclobenzaprine 10 mg tablet 10 mg PO BID PRN 02/27/24 05/03/24 History dextroamphetamine-amphetamine ER cap PO .ud 03/29/24 05/03/24 History 10 mg 24hr capsule,extend release bupropion HCl 300 mg 24 hr tablet, mg PO DAILY 05/03/24 05/03/24 History extended release Allergies Allergy/AdvReac Type Severity Reaction Status Date / Time prochlorperazine (From Allergy Severe Anaphylaxis Verified 05/03/24 13:01 Compazine) promethazine (From Phenergan) Allergy Severe Anaphylaxis Verified 05/03/24 13:01 SOCIAL MEDIA MARKETING SPECIALIST - Exam Physical Exam: Vital signs: Temp Pulse Resp BP Pulse Ox O2 Del Method 97.7 F 82 18 146/100 H 99 Room Air 04/26/24 11:23 04/26/24 14:15 04/26/24 14:15 04/26/24 14:15 04/26/24 14:15 04/26/24 14:15 Narrative: Physical exam: General: No acute distress Psych: Alert and oriented x3, full affect HEENT: Normocephalic, atraumatic Lungs: Unlabored breathing Neuro: No focal deficit. Mentating appropriately Lower extremities: No edema or erythema Pelvic exam: Mons normal, clitoris normal, urethral meatus normal. Labia minora and majora normal in appearance bilaterally. Perineum and anus normal appearance. Vaginal introitus normal appearance. Vagina is normally estrogenized with small amount of dark blood in vaginal vault. Cervix pink and without lesion - pap obtained. Bimanual exam reveals uterus to be soft, moderately tender, mobile, anteverted, of normal size and texture. No CMT. No palpable adnexal masses or tenderness. Procedure note: Endometrial biopsy We discussed risks of procedure, including bleeding, infection, discomfort, and rarely insufficient specimen to make definitive diagnosis. If there is insufficient specimen, depending on the clinical scenario, another procedure might be warranted. Consent form signed by patient. Pt sterilized. Bimanual exam performed as noted above. Speculum inserted. Cervix visualized and cleansed with 3 Betadine soaked swabs. Endometrial biopsy pipelle passed to depth of 4 cm. Unable to obtain access to the endometrium despite troubleshooting with various dilators including os Finders. It is unlikely that I obtained the actual endometrial tissue. Likely to be endocervical tissue. Patient tolerated procedure well but did request medication for pain relief afterwards. Toradol would be the best for her right now. 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 for 5 days due to elevated white count and high risk of infection given retained blood clots, Provera 20 mg t.i.d. for 5 days, Toradol as needed for pain. - ED in return precautions given. - follow-up in clinic for surgical consent
[2024-04-29 18:53] LABS: HPV Source Endocervical; HPV, High Risk by TMA Not Detected
== END 2024-04-26 16:00 | disposition home or self-care (01) ==
PROVIDERS: Obstetrics & Gynecology; Emergency Provider Student in an Organized Health Care Education/Training Program; PCP Family Medicine
DX: R10.2 Pelvic and perineal pain (principal)
CPT/HCPCS: 36415; 76830; 80048; 84703; 85025; 87070; 87205; 87624; 87625; 88141; 88142; 88305; 93976; 96372; 99284; J1885

== ENCOUNTER 2024-05-24 14:36 | Outpatient (CLI) | payer BC, SELFPAY | END 2024-05-24 14:37 | disposition home or self-care (01) | LOC: LKVREF 14:37 | PROVIDERS: PCP Family Medicine; Visit Provider Family Medicine | DX: Z13.228 Encounter for screening for other metabolic disorders (principal) | CPT/HCPCS: 80048 ==

== ENCOUNTER 2024-05-29 06:46 | Day surgery (SDC) | payer BC, SELFPAY ==
[2024-05-29] VITALS (20 sets, daily range): BP systolic 110–161; BP diastolic 70–104; PULSE 63–102; RESP 12–18; TEMP 35.9–37.3; O2SAT 92–99; BMI 29.6
--- OUTSIDE RECORDS SUMMARY | 2024-05-29 06:51 | XMS_ITS | Clinical Summary ---
Author Organization [facility] Address [address] [place] [id number] Care Team Providers Care Welt Treater Name Role Phone Alma Valencia Tyler PT Unavailable [phone] Leonor Draper MD Unavailable [phone] Jerri Fink RN Unavailable + [phone] Rahul Orourke MD Unavailable [phone] Terence Smyth MD Primary Care Provider Bina Chen [employer] Unavailable [phone] Allergies Active Allergy Reactions Criticality Noted Date Comments Prochlorperazine Other (See Comments) 5 Seizure Promethazine Anaphylaxis High 08/08/2016 Not allergic to codiene Promethazine Hcl Other (See Comments) 3 Seizure Phenergan Medications aspirin-acetamin ophen-caffeine (EXCEDRIN MIGRAINE) 250-250-65 MG per tablet Take 2 tablets by mouth as needed Active albuterol (PROAIR HFA/PROVENTIL HFA/VENTOLIN HFA) 108 (90 Base) MCG/ACT inhalerIndicatio ns:Mild intermittent asthma without complication Inhale 2 puffs into the lungs every 6 hours as needed for shortness of breath, wheezing or cough 18 g 1 12/27/19 23 Active levothyroxine (SYNTHROID/LEVOT HROID) 25 MCG tablet Take 25 mcg by mouth every morning (before breakfast). Active zolpidem (AMBIEN) 10 MG tablet Take 10 mg by mouth nightly as needed for sleep. Active amphetamine-dext roamphetamine (ADDERALL XR) 20 MG 24 hr capsule Take 20 mg by mouth daily. Active clonazePAM (KLONOPIN) 0.5 MG tablet Take 0.5 mg by mouth 2 times daily as needed for anxiety. Active phentermine 30 MG capsule Take 30 mg by mouth every morning. Active prazosin (MINIPRESS) 1 MG capsule Take 1 mg by mouth at bedtime. Active ketorolac (TORADOL) 10 MG tabletIndication s:Endometriosis Take 1 tablet (10 mg) by mouth every 6 hours as needed for moderate pain. 05/02/19 25 Active amoxicillin-clav ulanate (AUGMENTIN) 875-125 MG tabletIndication s:Endometriosis Take 1 tablet by mouth 2 times daily. 05/02/19 25 Active medroxyPROGESTER one (PROVERA) 10 MG tabletIndication s:Endometriosis Take 2 tablets (20 mg) by mouth 3 times daily. 05/02/19 25 Active buPROPion (WELLBUTRIN XL) 300 MG 24 hr tabletIndication s:Current severe 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 features, unspecified whether recurrent (H) Take 1 tablet (300 mg) by mouth daily. 30 tablet 1 05/02/19 25 Active diphenhydrAMINE (BENADRYL) 25 MG capsuleIndicatio ns:Insomnia, unspecified type Take 1 capsule (25 mg) by mouth nightly as needed for sleep. 05/02/19 25 Active hydrOXYzine HCl (ATARAX) 25 MG tabletIndication s:ROB (generalized anxiety disorder) Take 1-2 tablets (25-50 mg) by mouth every 4 hours as needed for anxiety. 90 tablet 1 05/02/19 25 Active amoxicillin-clav ulanate (AUGMENTIN) 875-125 MG tablet Take 1 tablet by mouth 2 times daily. 04/26/19 25 025 Discontinued ketorolac (TORADOL) 10 MG tablet Take 10 mg by mouth every 6 hours as needed for moderate pain. 04/26/19 25 025 Discontinued medroxyPROGESTER one (PROVERA) 10 MG tablet Take 20 mg by mouth 3 times daily. 04/26/19 25 025 Discontinued Active Problems Problem Noted Date Diagnosed Date ROB (generalized anxiety disorder) 04/29/2024 Suicide attempt 04/29/2024 Suicidal ideation 04/27/2024 Urinary retention 04/27/2024 Alcoholic intoxication without complication 04/04 Anticholinergic drug overdos e, intentional self-harm, initial encounter 04/27/2024 Severe episode of recurrent major depressive disorder, without psychotic features 04/27/2024 ADD (attention deficit disorder) 12/26/2022 Medical marijuana [...] 06/30/2008 Overview (04/18/2019): Overview: IMO Update 01/11 Encounters Date Type Department Care Team Description 04/29/2024 5:08 PM MEDICINE AND HEALTH SERVICE MANAGER - 05/02/2024 12:26 PM [facility] Hospital Encounter [facility] [address] [place] [address] Princess Ledesma MD Hartley, Alexandra, MD Lesion of parotid gland (Primary Dx); Endometriosis; Current severe 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 features, unspecified whether recurrent (H); ROB (generalized anxiety disorder); Insomnia, unspecified type Discharge Disposition: Home or Self Care 04/29/2024 Telephone [facility] [address] [facility] [place] [phone] Behavioral Dawood Ricci MD MH/CD Inpatient 04/29/2024 Telephone [facility] Behavioral Health Intake [address] [place] [phone] Ke[facility] Behavioral MD Dawood 04/28/2024 Telephone [facility] Behavioral Health Intake [address] [place] [phone] Behavioral Dawood Ricci MD 04/28/2024 Telephone [facility] Behavioral [facility] Intake [address] [place] [phone] Behavioral Dawood Ricci MD MH/CD Inpatient 04/27/2024 8:56 AM MEDICINE AND HEALTH SERVICE MANAGER - 04/29/2024 4:32 PM MEDICINE AND HEALTH SERVICE MANAGER Hospital Encounter [facility] [address] [facility] [address] [place] [phone] Taty Verdugo MD Jonkman, MD Antelmo Vang Jesus F, MD Suicidal ideation; Alcoholic intoxication without complication; Urinary retention; Anticholinergic drug overdose, intentional self-harm, initial encounter (H) Discharge Disposition: [facility] IP Readmission 04/27/2024 Telephone [facility] Behavioral [facility] Intake [address] [place] [phone] Behavioral Dawood Ricci MD from Last 3 Months Immunizations Name Administration Dates Next Due COVID-19 MONOVALENT 12+ (Pfizer) 05/21/2020,04/04 Flu, Unspecified 12/31/2011 [id number] Novel Flu- Nasal 01/23/2009 Influenza (H1N1) 01/23/2009 [...] you got money to buy more? No 04/30/2024 Within the past 12 months, d id the food you bought just not last and you didn t have money to get more? No 04/30/2024 Housing Stability Answer Date Recorded Do you have housing? (Breanna g is defined as stable permanent housing and does not include staying ouside in a car, in a tent, in an abandoned building, in an overnight chcf, or couch-surfing.) Yes 04/30/2024 Are you worried about losing your housing? No 04/30/2024 Financial Resource Strain Answer Date R ecorded Within the past 12 months, h ave you or your family members you live with been unable to get utilities (heat, electricity) when it was really needed? No 04/30/2024 Transportation Needs Answer Date Record ed Within the past 12 months, h as lack of transportation kept you from medical appointments, getting your medicines, non-medical meetings or appointments, work, or from getting things that you need? No 04/30/2024 Interpersonal Safety Answer Date Record ed Do you feel physically and e motionally safe where you currently live? Yes 04/29/2024 Within the past 12 months, h ave you been hit, slapped, kicked or otherwise physically hurt by someone? No 04/29/2024 Within the past 12 months, h ave you been humiliated or emotionally abused in other ways by your partner or ex-partner? No 04/29/2024 Comments No Sex and Gender Information Value Date Recorded Sex Assigned at Not on file Legal Sex Female 1:27 AM MEDICINE AND HEALTH SERVICE MANAGER Gender Identity Not on file Sexual Orientation Not on file Occupation Industry Job Start Date Job End Date [employer] Not on file Not on file Not on file Last Filed Vital Signs Vital Sign Reading Time Taken Comments Blood Pressure 122/81 05/02/2024 8:00 AM MEDICINE AND HEALTH SERVICE MANAGER Pulse 95 05/02/2024 8:00 AM MEDICINE AND HEALTH SERVICE MANAGER Temperature 36.9 C (98.4 F) 05/02/2024 8:00 AM MEDICINE AND HEALTH SERVICE MANAGER Respiratory Rate 16 04/29/2024 6:43 PM MEDICINE AND HEALTH SERVICE MANAGER Oxygen Saturation 99% 05/02/2024 8:00 AM MEDICINE AND HEALTH SERVICE MANAGER Inhaled Oxygen Concentration - - Weight 71 kg (156 lb 9.6 oz) 04/27/2024 8:42 PM MEDICINE AND HEALTH SERVICE MANAGER Height 157.5 cm (5' 2) 04/27/2024 8:42 PM MEDICINE AND HEALTH SERVICE MANAGER Body Mass Index 28.64 04/27/2024 8:42 PM MEDICINE AND HEALTH SERVICE MANAGER Plan of Treatment Health Maintenance Due Date Last Done Comments ANNUAL REVIEW OF HM ORDERS 1974 CT COLONOGRAPHY 1974 DEPRESSION ACTION PLAN 1974 FIT 1974 FLEX SIG 1974 sDNA (Cologuard) 1974 HEPATITIS B IMMUNIZATION (1 of 3 - 19+ 3-dose series) 1993 Pneumococcal Vaccine: Pediatrics (0 to 5 Years) and At-Risk Patients (6 to 49 Years) (1 of 2 - PCV) 1993 ASTHMA ACTION PLAN 06/14/2017 06/14/2016, 0 06/14/2016, 06/14/2016 HPV TEST 09/15/2019 09/14/2018, 01/11/2017 PAP 09/15/2019 09/14/2018, 01/11/2017 YEARLY PREVENTIVE VISIT 09/15/2019 09/14/2018, 01/11 DTAP/TDAP/TD IMMUNIZATION (2 - Td or Tdap) 11/10/2021 11/11/2011, 11/22/2005 ASTHMA CONTROL TEST 06/26/2023 12/26/2022, 01/11/2017, 06/14/2016, Additional history exists PHQ-9 06/26/2023 12/26/2022, 04/1 04/2017, 06/09/2017, Additional history exists COVID-19 Vaccine ( season) 2023 05/21/2020, 04/29/2020 INFLUENZA VACCINE (#1) 2023 9, 02/02/2018, 01/11/2017, Additional history exists ZOSTER IMMUNIZATION (1 of 2) 2024 MAMMO SCREENING 12/29/2024 12/29/2022 LIPID 04/30/2025 04/30/2024, 01/12/2017 TSH W/FREE T4 REFLEX 04/30/2025 04/30/2024, 06/09/2017, 01/12/2017 GLUCOSE 04/30/2027 04/30/2024, 04/04, 04/27/2024, Additional history exists ADVANCE CARE PLANNING 12/30/2027 12/29/2022, 017 COLONOSCOPY 01/06/2028 01/05/2023 COLORECTAL CANCER SCREENING 01/06/2028 MENINGITIS IMMUNIZATION Aged Out 07/21/2011 No l onger eligible based on patient's age to complete this topic HEPATITIS C SCREENING Completed 05/28/2018 HIV SCREENING Completed 05/28/2018 HPV IMMUNIZATION Aged Out No longer e ligible based on patient's age to complete this topic Medical Devices Implanted Type Area Progressive Care Unit Registered Nurse Device Identifier Shelf Expiration Date Model / Serial / Lot Lens-Tecnis Multifocal 18.0 Implanted:Qty: 1 on 07/10/2012 by Inder Magdaleno MD at [facility] Left: Eye 03/11/2016 [id number] / [id number] / Procedures Procedure Name Priority Date/Time Associated Diagnosis Comments PHOSPHORUS Routine 04/30/2024 7:51 AM MEDICINE AND HEALTH SERVICE MANAGER LACTIC ACID WHOLE BLOOD Routine 04/30/2024 7:51 AM MEDICINE AND HEALTH SERVICE MANAGER TSH WITH FREE T4 REFLEX Routine 04/30/2024 7:51 AM MEDICINE AND HEALTH SERVICE MANAGER LIPID PROFILE Routine 04/30/2024 7:51 AM MEDICINE AND HEALTH SERVICE MANAGER HEMOGLOBIN A1C Routine 04/30/2024 7:51 AM MEDICINE AND HEALTH SERVICE MANAGER COMPREHENSIVE METABOLIC PANEL Routine 04/30/2024 7:51 AM MEDICINE AND HEALTH SERVICE MANAGER EXTRA PURPLE TOP EDTA (LAB USE ONLY) Routine 04/29/2024 6:22 AM MEDICINE AND HEALTH SERVICE MANAGER PHOSPHORUS Routine 04/29/2024 6:22 AM MEDICINE AND HEALTH SERVICE MANAGER MAGNESIUM Routine 04/29/2024 6:22 AM MEDICINE AND HEALTH SERVICE MANAGER POTASSIUM Routine 04/29/2024 6:22 AM MEDICINE AND HEALTH SERVICE MANAGER PHOSPHORUS Routine 04/28/2024 6:39 AM MEDICINE AND HEALTH SERVICE MANAGER MAGNESIUM Routine 04/28/2024 6:39 AM MEDICINE AND HEALTH SERVICE MANAGER CBC WITH PLATELETS Routine 04/28/2024 6: 39 AM MEDICINE AND HEALTH SERVICE MANAGER BASIC METABOLIC PANEL Routine 04/28/2024 6:39 AM MEDICINE AND HEALTH SERVICE MANAGER LACTIC ACID WHOLE BLOOD STAT 04/27/2024 7:51 PM MEDICINE AND HEALTH SERVICE MANAGER INFLUENZA A/B, RSV AND SARS-COV2 PCR STAT 04/27/2024 7:33 PM MEDICINE AND HEALTH SERVICE MANAGER EKG 12-LEAD, TRACING ONLY STAT 04/27/2024 6:49 PM MEDICINE AND HEALTH SERVICE MANAGER LACTIC ACID WHOLE BLOOD WITH 1X REPEAT IN 2 HR WHEN >2 STAT 04/27/2024 5:43 PM MEDICINE AND HEALTH SERVICE MANAGER PHOSPHORUS Add-On 04/27/2024 4:57 PM MEDICINE AND HEALTH SERVICE MANAGER MAGNESIUM Add-On 04/27/2024 4:57 PM MEDICINE AND HEALTH SERVICE MANAGER INR STAT 04/27/2024 4:57 PM MEDICINE AND HEALTH SERVICE MANAGER HEPATIC FUNCTION PANEL STAT 4:57 PM MEDICINE AND HEALTH SERVICE MANAGER ACETAMINOPHEN LEVEL STAT 04/27/2024 4 :57 PM MEDICINE AND HEALTH SERVICE MANAGER MR BRAIN W/O CONTRAST STAT 04/27/2024 4:14 PM MEDICINE AND HEALTH SERVICE MANAGER CT HEAD W/O CONTRAST STAT 04/27/2024 1:14 PM MEDICINE AND HEALTH SERVICE MANAGER LACTIC ACID WHOLE BLOOD STAT 04/27/2024 12:22 PM MEDICINE AND HEALTH SERVICE MANAGER INR STAT 04/27/2024 9:35 AM MEDICINE AND HEALTH SERVICE MANAGER URINE DRUG SCREEN STAT 04/27/2024 9:2 7 AM MEDICINE AND HEALTH SERVICE MANAGER URINE DRUG SCREEN PANEL STAT 04/27/2024 9:27 AM MEDICINE AND HEALTH SERVICE MANAGER XR CHEST PORT 1 VIEW STAT 04/27/2024 9:12 AM MEDICINE AND HEALTH SERVICE MANAGER GLUCOSE BY METER STAT 04/27/2024 9:08 AM MEDICINE AND HEALTH SERVICE MANAGER ISTAT GASES LACTATE VENOUS POCT STAT 04/27/2024 9:06 AM MEDICINE AND HEALTH SERVICE MANAGER CBC WITH PLATELETS & DIFFERENTIAL STAT 04/27/2024 9:03 AM MEDICINE AND HEALTH SERVICE MANAGER HEPATIC FUNCTION PANEL Add-On 9:03 AM MEDICINE AND HEALTH SERVICE MANAGER ETHYL ALCOHOL LEVEL STAT 04/27/2024 9 :03 AM MEDICINE AND HEALTH SERVICE MANAGER HCG QUALITATIVE STAT 04/27/2024 9:03 AM MEDICINE AND HEALTH SERVICE MANAGER ACETAMINOPHEN LEVEL STAT 04/27/2024 9 :03 AM MEDICINE AND HEALTH SERVICE MANAGER SALICYLATE LEVEL STAT 04/27/2024 9:03 AM MEDICINE AND HEALTH SERVICE MANAGER EXTRA RED TOP TUBE STAT 04/27/2024 9: 03 AM MEDICINE AND HEALTH SERVICE MANAGER CBC WITH PLATELETS AND DIFFERENTIAL STAT 04/27/2024 9:03 AM MEDICINE AND HEALTH SERVICE MANAGER EXTRA TUBE STAT 04/27/2024 9:03 AM MEDICINE AND HEALTH SERVICE MANAGER TROPONIN T, HIGH SENSITIVITY STAT 04/27/2024 9:03 AM MEDICINE AND HEALTH SERVICE MANAGER BASIC METABOLIC PANEL STAT 04/27/2024 9:03 AM MEDICINE AND HEALTH SERVICE MANAGER EKG 12-LEAD, TRACING ONLY STAT 04/27/2024 9:02 AM MEDICINE AND HEALTH SERVICE MANAGER EKG CARDIAC - HIM SCAN 5 12:00 AM MEDICINE AND HEALTH SERVICE MANAGER EKG CARDIAC - HIM SCAN 5 12:00 AM MEDICINE AND HEALTH SERVICE MANAGER EKG CARDIAC - HIM SCAN 5 12:00 AM MEDICINE AND HEALTH SERVICE MANAGER EKG CARDIAC - HIM SCAN 5 12:00 AM MEDICINE AND HEALTH SERVICE MANAGER MA DIAGNOSTIC BILATERAL W/ SIXTO Routine 12/29/2022 1:16 PM CDT Mass of upper outer quadrant of left breast A PAP THIN LAYER SCREEN Routine 09/14/2018 3:12 PM CDT Screening for cervical cancer HPV HIGH RISK TYPES DNA CERVICAL Routine 09/14/2018 3:12 PM CDT Screening for cervical cancer HEPATITIS C (HIM EXTERNAL RESULT) Routine 05/28/2018 2:31 PM MEDICINE AND HEALTH SERVICE MANAGER HIV ANTIGEN ANTIBODY COMBO Routine 05/28/2018 ASTHMA CONTROL TEST - HIM SCAN Routine 06/14/2016 1:45 PM CDT ASTHMA ACTION PLAN Routine 06/14/2016 9: 23 AM CDT from Last 3 Months or Most Recently Relevant to Health Maintenance Results * TSH with free T4 reflex and/or T3 as indicated (04/30/2024 7:51 AM MEDICINE AND HEALTH SERVICE MANAGER) TSH 1.15 0.30 - 4.20 uIU/mL 04/30/2024 8:40 AM MEDICINE AND HEALTH SERVICE MANAGER [facility] Blood BLOOD SPECIMEN / Unknown Venipuncture / Unknown 04/30/2024 7:51 AM MEDICINE AND HEALTH SERVICE MANAGER 04/30/2024 8:06 AM MEDICINE AND HEALTH SERVICE MANAGER us Adrienne Ledesma APRN [employer] LAB - BLOOD ORDER ADÁN Final Result UR [facility] Acute Care Lab [address] [facility], Room [address] [phone] * Phosphorus (04/30/2024 7:51 AM MEDICINE AND HEALTH SERVICE MANAGER) Only the most recent of4 resultswithin the time period is included. Phosphorus 3.3 2.5 - 4.5 mg/dL 04/30/2024 8:40 AM MEDICINE AND HEALTH SERVICE MANAGER [facility] Blood BLOOD SPECIMEN / Unknown Venipuncture / Unknown 04/30/2024 7:51 AM MEDICINE AND HEALTH SERVICE MANAGER 04/30/2024 8:06 AM MEDICINE AND HEALTH SERVICE MANAGER Adrienne Ledesma APRN [employer] LAB - BLOOD ORDER ADÁN Final Result [facility] Care Lab [address] [facility], [address] [phone] * (ABNORMAL) Lipid panel (04/30/2024 7:51 AM MEDICINE AND HEALTH SERVICE MANAGER) Cholesterol 238(H) <200 mg/dL 04/30/2024 8:40 AM MEDICINE AND HEALTH SERVICE MANAGER [facility] Triglycerides 245(H) <150 mg/dL 04/30/2024 8:40 AM MEDICINE AND HEALTH SERVICE MANAGER [facility] Direct Measure HDL 43(L) >=50 mg/dL 04/30/2024 8:40 AM MEDICINE AND HEALTH SERVICE MANAGER [facility] LDL Cholesterol Calculated 146(H) <100 mg/dL 04/30/2024 8:40 AM MEDICINE AND HEALTH SERVICE MANAGER [facility] Non HDL Cholesterol 195(H) <130 mg/dL 04/30/2024 8:40 AM MEDICINE AND HEALTH SERVICE MANAGER [facility] Blood BLOOD SPECIMEN / Unknown Venipuncture / Unknown 04/30/2024 7:51 AM MEDICINE AND HEALTH SERVICE MANAGER 04/30/2024 8:06 AM MEDICINE AND HEALTH SERVICE MANAGER Narrative [facility] - 04/30/2024 8:40 AM MEDICINE AND HEALTH SERVICE MANAGER Cholesterol Desirable: < 200 mg/dL Borderline High: 200 - 239 mg/dL High: >= 240 mg/dL Triglycerides Normal: < 150 mg/dL Borderline High: 150 - 199 mg/dL High: 200-499 mg/dL Very High: >= 500 mg/dL Direct Measure HDL Female: >= 50 mg/dL Male: >= 40 mg/dL LDL Cholesterol Desirable: < 100 mg/dL Above Desirable: 100 - 129 mg/dL Borderline High: 130 - 159 mg/dL High: 160 - 189 mg/dL Very High: >= 190 mg/dL Non HDL Cholesterol Desirable: < 130 mg/dL Above Desirable: 130 - 159 mg/dL Borderline High: 160 - 189 mg/dL High: 190 - 219 mg/dL Very High: >= 220 mg/dL Adrienne Ledesma APRN, CNP LAB - BLOOD ORDER ADÁN Final Result Performing Organization Address City/[facility]/ZIP Co de Phone Number UR [facility] Acute Care Lab [address] [place] [address], [address] * Lactic acid whole blood (04/30/2024 7:51 AM MEDICINE AND HEALTH SERVICE MANAGER) Only the most recent of3 resultswithin the time period is included. Lactic Acid 1.3 0.7 - 2.0 mmol/L 04/30/2024 8:06 AM MEDICINE AND HEALTH SERVICE MANAGER [facility] Blood BLOOD SPECIMEN / Unknown Venipuncture / Unknown 04/30/2024 7:51 AM MEDICINE AND HEALTH SERVICE MANAGER 04/30/2024 8:04 AM MEDICINE AND HEALTH SERVICE MANAGER Adrienne Ledesma APRN, CNP LAB - BLOOD ORDER ADÁN Final Result Performing Organization Address City/[facility] Co de Phone Number UR LABORATORY [facility] Lab [address] [place] [address], [address] * Hemoglobin A1c (04/30/2024 7:51 AM MEDICINE AND HEALTH SERVICE MANAGER) Estimated Average Glucose 100 <117 mg/dL 04/30/2024 8:23 AM MEDICINE AND HEALTH SERVICE MANAGER [facility] Hemoglobin A1C 5.1 <5.7 % 04/30/2024 8:23 AM MEDICINE AND HEALTH SERVICE MANAGER [facility] Comment: Normal <5.7% Prediabetes 5.7-6.4% Diabetes 6.5% or higher Note: Adopted from ADA consensus guidelines. Blood BLOOD SPECIMEN / Unknown Venipuncture / Unknown 04/30/2024 7:51 AM MEDICINE AND HEALTH SERVICE MANAGER 04/30/2024 8:06 AM MEDICINE AND HEALTH SERVICE MANAGER us Adrienne Ledesma APRN [employer] LAB - BLOOD ORDER ADÁN Final Result UR [facility]AT[facility] Acute Care Lab [address] [facility], [address] [place] [address] * Comprehensive metabolic panel (04/30/2024 7:51 AM MEDICINE AND HEALTH SERVICE MANAGER) Sodium 140 135 - 145 mmol/L 04/30/2024 8:40 AM MEDICINE AND HEALTH SERVICE MANAGER [facility] Potassium 3.8 3.4 - 5.3 mmol/L 04/30/2024 8:40 AM MEDICINE AND HEALTH SERVICE MANAGER [facility] Carbon Dioxide (CO2) 24 22 - 29 mmol/L 04/30/2024 8:40 AM MEDICINE AND HEALTH SERVICE MANAGER [facility] Anion Gap 12 7 - 15 mmol/L 04/30/2024 8:40 AM MEDICINE AND HEALTH SERVICE MANAGER [facility] Urea Nitrogen 7.9 6.0 - 20.0 mg/dL 04/30/2024 8:40 AM MEDICINE AND HEALTH SERVICE MANAGER [facility] Creatinine 0.79 0.51 - 0.95 mg/dL 04/30/2024 8:40 AM MEDICINE AND HEALTH SERVICE MANAGER [facility] GFR Estimate >90 >60 mL/min/1.7 3m2 04/30/2024 8:40 AM MEDICINE AND HEALTH SERVICE MANAGER [facility] Comment:eGFR calculated usin 2020 CKD-EPI equation. Calcium 9.8 8.8 - 10.4 mg/dL 04/30/2024 8:40 AM MEDICINE AND HEALTH SERVICE MANAGER [facility] Comment:Reference intervals for this test were updated on 10/17/2023 to reflect our healthy population more accurately. There may be differences in the flagging of prior results with similar values performed with this method. Those prior results can be interpreted in the context of the updated reference intervals. Chloride 104 98 - 107 mmol/L 04/30/2024 8:40 AM MEDICINE AND HEALTH SERVICE MANAGER [facility] Glucose 98 70 - 99 mg/dL 04/30/2024 8:40 AM MEDICINE AND HEALTH SERVICE MANAGER [facility] Alkaline Phosphatase 65 40 - 150 U/L 04/30/2024 8:40 AM MEDICINE AND HEALTH SERVICE MANAGER [facility] AST 20 0 - 45 U/L 04/30/2024 8:40 AM MEDICINE AND HEALTH SERVICE MANAGER [facility] ALT 20 0 - 50 U/L 04/30/2024 8:40 AM MEDICINE AND HEALTH SERVICE MANAGER [facility] Protein Total 7.4 6.4 - 8.3 g/dL 04/30/2024 8:40 AM MEDICINE AND HEALTH SERVICE MANAGER [facility] Albumin 4.4 3.5 - 5.2 g/dL 04/30/2024 8:40 AM MEDICINE AND HEALTH SERVICE MANAGER [facility] Bilirubin Total 0.7 <=1.2 mg/dL 04/30/2024 8:40 AM MEDICINE AND HEALTH SERVICE MANAGER [facility] Blood BLOOD SPECIMEN / Unknown Venipuncture / Unknown 04/30/2024 7:51 AM MEDICINE AND HEALTH SERVICE MANAGER 04/30/2024 8:06 AM MEDICINE AND HEALTH SERVICE MANAGER us Adrienne Ledesma APRN [employer] LAB - BLOOD ORDER ADÁN Final Result UR LAB[facility]AT[facility] Acute Care Lab [address] [facility], [address] [place] [address] * Extra Purple Top EDTA (LAB USE ONLY) (04/29/2024 6:22 AM MEDICINE AND HEALTH SERVICE MANAGER) Hold Specimen JIC 04/29/2024 7:46 AM MEDICINE AND HEALTH SERVICE MANAGER [facility] Blood STRUCTURE OF RIGHT HAND / Unknown Venipuncture / Unknown 04/29/2024 6:22 AM MEDICINE AND HEALTH SERVICE MANAGER 04/29/2024 6:40 AM MEDICINE AND HEALTH SERVICE MANAGER us Puma Rodriges MD LAB - BLOOD ORDERABLES Final Result [facility] Acute Care Lab [address] Lab (1st floor, no room number) [place] [address] * Potassium (04/29/2024 6:22 AM MEDICINE AND HEALTH SERVICE MANAGER) Potassium 3.6 3.4 - 5.3 mmol/L 04/29/2024 7:03 AM MEDICINE AND HEALTH SERVICE MANAGER [facility] Blood STRUCTURE OF RIGHT HAND / Unknown Venipuncture / Unknown 04/29/2024 6:22 AM MEDICINE AND HEALTH SERVICE MANAGER 04/29/2024 6:40 AM MEDICINE AND HEALTH SERVICE MANAGER us Jose Leal MD LAB - BLOOD ORDERA BLES Final Result Performing Organization Address City/[facility]/ZIP Co de Phone Number LABORATORY [facility] Acute Care Lab [address] Lab (1st floor, no room number) [address] * Magnesium (04/29/2024 6:22 AM MEDICINE AND HEALTH SERVICE MANAGER) Only the most recent of3 resultswithin the time period is included. Magnesium 1.8 1.7 - 2.3 mg/dL 04/29/2024 7:[address] [facility] Blood STRUCTURE OF RIGHT HAND / Unknown Venipuncture / Unknown 04/29/2024 6:22 AM MEDICINE AND HEALTH SERVICE MANAGER 04/29/2024 6:40 AM MEDICINE AND HEALTH SERVICE MANAGER Jose Leal MD LAB - BLOOD ORDERA BLES Final Result Performing Organization Address [facility] Co de Phone Number LABORATORY [facility] Acute Care Lab [address] Lab (1st floor, no room number) [address] * (ABNORMAL) Basic metabolic panel (04/28/2024 6:39 AM MEDICINE AND HEALTH SERVICE MANAGER) Only the most recent of2 resultswithin the time period is included. Sodium 139 135 - 145 mmol/L 04/28/2024 7:[address] [facility] Potassium 3.6 3.4 - 5.3 mmol/L 04/28/2024 7:[address] [facility] Chloride 104 98 - 107 mmol/L 04/28/2024 7:[address] [facility] Carbon Dioxide (CO2) 21(L) 22 - 29 mmol/L 04/28/2024 7:[address] [facility] Anion Gap 14 7 - 15 mmol/L 04/28/2024 7:[address] [facility] Urea Nitrogen 12.0 6.0 - 20.0 mg/dL 04/28/2024 7:[address] [facility] Creatinine 0.89 0.51 - 0.95 mg/dL 04/28/2024 7:[address] [facility] GFR Estimate 79 >60 mL/min/1.7 3m2 04/28/2024 7:33 AM MEDICINE AND HEALTH SERVICE MANAGER [facility] Comment:eGFR calculated usin 2020 CKD-EPI equation. Calcium 8.9 8.8 - 10.4 mg/dL 04/28/2024 7:33 AM MEDICINE AND HEALTH SERVICE MANAGER [facility] Comment:Reference intervals for this test were updated on 10/17/2023 to reflect our healthy population more accurately. There may be differences in the flagging of prior results with similar values performed with this method. Those prior results can be interpreted in the context of the updated reference intervals. Glucose 80 70 - 99 mg/dL 04/28/2024 7:33 AM MEDICINE AND HEALTH SERVICE MANAGER [facility] Blood STRUCTURE OF RIGHT UPPER LIMB / Unknown Venipuncture / Unknown 04/28/2024 6:39 AM MEDICINE AND HEALTH SERVICE MANAGER 04/28/2024 7:07 AM MEDICINE AND HEALTH SERVICE MANAGER us Puma Rodriges MD LAB - BLOOD ORDERABLES Final Result [facility] [address] [facility] Lab (1st floor, no room number) [place] [address] * CBC with platelets (04/28/2024 6:39 AM MEDICINE AND HEALTH SERVICE MANAGER) WBC Count 10.9 4.0 - 11.0 10e3/uL 04/28/2024 7:38 AM MEDICINE AND HEALTH SERVICE MANAGER [facility] RBC Count 3.98 3.80 - 5.20 10e6/uL 04/28/2024 7:38 AM MEDICINE AND HEALTH SERVICE MANAGER [facility] Hemoglobin 12.4 11.7 - 15.7 g/dL 04/28/2024 7:38 AM MEDICINE AND HEALTH SERVICE MANAGER [facility] Hematocrit 36.0 35.0 - 47.0 % 04/28/2024 7:38 AM MEDICINE AND HEALTH SERVICE MANAGER [facility] MCV 91 78 - 100 fL 04/28/2024 7:38 AM MEDICINE AND HEALTH SERVICE MANAGER [facility] MCH 31.2 26.5 - 33.0 pg 04/28/2024 7:38 AM MEDICINE AND HEALTH SERVICE MANAGER [facility] MCHC 34.4 31.5 - 36.5 g/dL 04/28/2024 7:38 AM MEDICINE AND HEALTH SERVICE MANAGER [facility] RDW 12.0 10.0 - 15.0 % 04/28/2024 7:38 AM MEDICINE AND HEALTH SERVICE MANAGER [facility] Platelet Count 262 150 - 450 10e3/uL 04/28/2024 7:38 AM MEDICINE AND HEALTH SERVICE MANAGER [facility] Blood STRUCTURE OF RIGHT UPPER LIMB / Unknown Venipuncture / Unknown 04/28/2024 6:39 AM MEDICINE AND HEALTH SERVICE MANAGER 04/28/2024 7:07 AM MEDICINE AND HEALTH SERVICE MANAGER Puma Rodriges MD LAB - BLOOD ORDERABLES Final Result LABORATORY [facility] [address] Lab (1st floor, no room number) [place] [address] * Influenza A/B, RSV and SARS-CoV2 PCR (COVID-19) Nasopharyngeal (04/27/2024 7:33 PM MEDICINE AND HEALTH SERVICE MANAGER) Pathologist [facility] Influenza A PCR Negative Negative 04/27/2024 8:24 PM MEDICINE AND HEALTH SERVICE MANAGER LABORATORY Influenza B PCR Negative Negative 04/27/2024 8:24 PM MEDICINE AND HEALTH SERVICE MANAGER LABORATORY RSV PCR Negative Negative 04/27/2024 8:24 PM MEDICINE AND HEALTH SERVICE MANAGER LABORATORY SARS CoV2 PCR Negative Negative 04/27/2024 8:24 PM MEDICINE AND HEALTH SERVICE MANAGER LABORATORY Comment:NEGATIVE: SARS-CoV-2 (COVID-19) RNA not detected, presumed negative. Swab NASOPHARYNGEAL STRUCTURE / Unknown Non-blood Collection / Unknown 04/27/2024 7:33 PM MEDICINE AND HEALTH SERVICE MANAGER 04/27/2024 7:37 PM MEDICINE AND HEALTH SERVICE MANAGER Narrative LABORATORY - 04/27/2024 8:24 PM MEDICINE AND HEALTH SERVICE MANAGER Testing was performed using the Xpert Xpress CoV2/Flu/RSV Assay on the [employer] GeneXpert Instrument. This test should be ordered for the detection of SARS- CoV2, influenza, and RSV viruses in individuals with signs and symptoms of respiratory tract infection. This test is for in vitro diagnostic use under the [place] FDA for laboratories certified under CLIA to perform high or moderate complexity testing. This test has been [place] FDA cleared. A negative result does not rule out the presence of PCR inhibitors in the specimen or target RNA in concentration below the limit of detection for the assay. If only one viral target is positive but coinfection with multiple targets is suspected, the sample should be re-tested with another FDA cleared, approved, or authorized test, if coninfection would change clinical management. This test was validated by the [facility]. These laboratories are certified under the Clinical Laboratory Improvement Amendments of 1988 (CLIA-88) as qualified to perfom high complexity laboratory testing. Puma Rodriges MD LAB - MICRO GENERAL ORDERABLE S Final Result LABORATORY [facility] [address] Lab (1st floor, no room number) [place] [address], [facility] * EKG 12 lead (04/27/2024 6:49 PM MEDICINE AND HEALTH SERVICE MANAGER) Only the most recent of2 resultswithin the time period is included. Systolic Blood Pressure mmHg RADIOLOGY RESULTS Diastolic Blood Pressure mmHg RADIOLOGY RESULTS Ventricular Rate 83 BPM RAD IOLOGY RESULTS Atrial Rate 83 BPM RADIOLOG Y RESULTS AK Interval 162 ms RADIOLOG Y RESULTS QRS Duration 74 ms RADIOLO GY RESULTS QT 388 ms RADIOLOGY RESULTS QTc 455 ms RADIOLOGY RESULTS P [place] 63 degrees RADIOLOGY RESULTS R AXIS -3 degrees RADIOLOGY RESULTS T [place] -7 degrees RADIOLOGY RESULTS Interpretation ECG Sinus rhythm Nonspecific T wave abnormality Abnormal ECG When compared with ECG of 27-Apr-2024 09:02, (unconfirmed) No significant change was found Unconfirmed report - interpretation of this ECG is computer generated - see medical record for final interpretation Confirmed by - EMERGENCY ROOM, PHYSICIAN ([id number]), film and video editor MALIK MCFADDEN ([id number]) on 04/29/2024 7:08:57 AM RADIOLOGY RESULTS 04/27/2024 6:49 PM MEDICINE AND HEALTH SERVICE MANAGER 04/29/2024 7:08 AM MEDICINE AND HEALTH SERVICE MANAGER Taty Verdugo MD ECG ORDERABLES Edited R esult - Final RADIOLOGY RESULTS * (ABNORMAL) Lactic Acid Whole Blood with 1X Repeat in 2 HR when >2 (04/27/2024 5:43 PM MEDICINE AND HEALTH SERVICE MANAGER) Lactic Acid, Initial 3.3(H) 0.7 - 2.0 mmol/L 04/27/2024 6:06 PM MEDICINE AND HEALTH SERVICE MANAGER LABORATORY Blood STRUCTURE OF LEFT UPPER LIMB / Unknown Venipuncture / Unknown 04/27/2024 5:43 PM MEDICINE AND HEALTH SERVICE MANAGER 04/27/2024 5:48 PM MEDICINE AND HEALTH SERVICE MANAGER Linda Phillips MD LAB - BLOOD ORDERABLES F inal Result [facility] Lab [address] Lab (1st floor, no room number) [place] [phone] [place] [address] * INR (04/27/2024 4:57 PM MEDICINE AND HEALTH SERVICE MANAGER) Only the most recent of2 resultswithin the time period is included. INR 1.03 0.85 - 1.15 04/27/2024 5:32 PM MEDICINE AND HEALTH SERVICE MANAGER [facility] Blood BLOOD SPECIMEN / Unknown Venipuncture / Unknown 04/27/2024 4:57 PM MEDICINE AND HEALTH SERVICE MANAGER 04/27/2024 5:15 PM MEDICINE AND HEALTH SERVICE MANAGER Taty Verdugo MD LAB - BLOOD ORDERABLES F inal Result Performing Organization Address [facility] Co de Phone Number [facility] Lab [address] Lab (1st floor, no room number) [place] [phone] * Hepatic panel (04/27/2024 4:57 PM MEDICINE AND HEALTH SERVICE MANAGER) Only the most recent of2 resultswithin the time period is included. Protein Total 7.5 6.4 - 8.3 g/dL 04/27/2024 5:53 PM MEDICINE AND HEALTH SERVICE MANAGER LABORATORY Albumin 4.6 3.5 - 5.2 g/dL 04/27/2024 5:53 PM MEDICINE AND HEALTH SERVICE MANAGER LABORATORY Bilirubin Total 0.3 <=1.2 mg/dL 04/27/2024 5:53 PM MEDICINE AND HEALTH SERVICE MANAGER [facility] Alkaline Phosphatase 69 40 - 150 U/L 04/27/2024 5:53 PM MEDICINE AND HEALTH SERVICE MANAGER [facility] AST 21 0 - 45 U/L 04/27/2024 5:53 PM MEDICINE AND HEALTH SERVICE MANAGER [facility] ALT 18 0 - 50 U/L 04/27/2024 5:53 PM MEDICINE AND HEALTH SERVICE MANAGER LABORATORY Bilirubin Direct <0.20 0.00 - 0.30 mg/dL 04/27/2024 5:53 PM MEDICINE AND HEALTH SERVICE MANAGER [facility] Blood BLOOD SPECIMEN / Unknown Venipuncture / Unknown 04/27/2024 4:57 PM MEDICINE AND HEALTH SERVICE MANAGER 04/27/2024 5:15 PM MEDICINE AND HEALTH SERVICE MANAGER Taty Verdugo MD LAB - BLOOD ORDERABLES F inal Result Performing Organization Address City/[facility]/ZIP Co de Phone Number [facility] Lab [address] Lab (1st floor, no room number) [place] [address] * (ABNORMAL) Acetaminophen level (04/27/2024 4:57 PM MEDICINE AND HEALTH SERVICE MANAGER) Only the most recent of2 resultswithin the time period is included. Acetaminophen <5.0(L) 10.0 - 30.0 ug/mL 04/27/2024 6:22 PM MEDICINE AND HEALTH SERVICE MANAGER LABORATORY Blood BLOOD SPECIMEN / Unknown Venipuncture / Unknown 04/27/2024 4:57 PM MEDICINE AND HEALTH SERVICE MANAGER 04/27/2024 5:15 PM MEDICINE AND HEALTH SERVICE MANAGER Taty Verdugo MD LAB - BLOOD ORDERABLES F inal Result Performing Organization Address [facility]/ZIP Co de Phone Number [facility] Lab [address] Lab (1st floor, no room number) [place] [phone] [place] [address] * MR Brain w/o Contrast (04/27/2024 4:14 PM MEDICINE AND HEALTH SERVICE MANAGER) Anatomical Region Laterality Modality Head, SUBRAD MR NEURO, UMP MR NEURO, RAD MR Magnetic Resonance 04/27/2024 4:14 PM MEDICINE AND HEALTH SERVICE MANAGER Impressions 04/27/2024 4:25 PM MEDICINE AND HEALTH SERVICE MANAGER IMPRESSION: 1. Negative for acute intracranial abnormality. 2. Nonspecific 1 cm T2 hyperintense left parotid nodule. Recommend further evaluation with nonemergent ENT consultation. Narrative 04/27/2024 4:25 PM MEDICINE AND HEALTH SERVICE MANAGER EXAM: MR BRAIN W/O CONTRAST LOCATION: [facility] DATE: 04/27/2024 INDICATION: possible cerebral edema on CT COMPARISON: CT head 04/27/2024 TECHNIQUE: Routine multiplanar multisequence head MRI without intravenous contrast. FINDINGS: INTRACRANIAL CONTENTS: No acute or subacute infarct. No mass, acute hemorrhage, or extra-axial fluid collections. Normal brain parenchymal signal. Normal ventricles and sulci. Normal position of the cerebellar tonsils. SELLA: No abnormality accounting for technique. OSSEOUS STRUCTURES/SOFT TISSUES: Normal marrow signal. The major intracranial vascular flow voids are maintained. Nonspecific 1 cm T2 hyperintense nodule at the deep lobe of left parotid gland. ORBITS: No abnormality accounting for technique. SINUSES/MASTOIDS: No paranasal sinus mucosal disease. No middle ear or mastoid effusion. Procedure Note Edilberto Orourke MD - 04/27/2024 EXAM: MR BRAIN W/O CONTRAST LOCATION: [facility] DATE: 04/27/2024 INDICATION: possible cerebral edema on CT COMPARISON: CT head 04/27/2024 TECHNIQUE: Routine multiplanar multisequence head MRI without intravenouscontrast. FINDINGS: INTRACRANIAL CONTENTS: No acute or subacute infarct. No mass, acutehemorrhage, or extra-axial fluid collections. Normal brain parenchymalsignal. Normal ventricles and sulci. Normal position of the cerebellartonsils. SELLA: No abnormality accounting for technique. OSSEOUS STRUCTURES/SOFT TISSUES: Normal marrow signal. The majorintracranial vascular flow voids are maintained. Nonspecific 1 cm [id number] nodule at the deep lobe of left parotid gland. ORBITS: No abnormality accounting for technique. SINUSES/MASTOIDS: No paranasal sinus mucosal disease. No middle ear ormastoid effusion. IMPRESSION: 1. Negative for acute intracranial abnormality. 2. Nonspecific 1 cm T2 hyperintense left parotid nodule. Recommendfurther evaluation with nonemergent ENT consultation. Taty Verdugo MD [facility] MRI ORDERABLES Final Result * Head CT w/o contrast (04/27/2024 1:14 PM MEDICINE AND HEALTH SERVICE MANAGER) Anatomical Region Laterality Modality Head, SUBRAD CT NEURO, SUBRA D CT NEURO, UMP CT NEURO, RAD CT Computed Tomography 04/27/2024 1:14 PM MEDICINE AND HEALTH SERVICE MANAGER Addenda Addendum by Jaspreet Hankins MD on 04/27/2024 1:45 PM MEDICINE AND HEALTH SERVICE MANAGER Findings were discussed with Dr. Verdugo by Dr. Hankins at 1:44 PM MEDICINE AND HEALTH SERVICE MANAGER on 04/27/2024. Impressions 04/27/2024 1:39 PM MEDICINE AND HEALTH SERVICE MANAGER IMPRESSION: 1. Questionable hazy gatica-white matter differentiation and cerebral sulcal effacement, most pronounced in the left frontal lobe could suggest cerebral edema. Recommend brain MRI to further evaluate. 2. No CT evidence for intracranial hemorrhage. 3. Partially empty sella. Communication pending. Narrative 04/27/2024 1:39 PM MEDICINE AND HEALTH SERVICE MANAGER EXAM: CT HEAD W/O CONTRAST LOCATION: [facility] DATE: 04/27/2024 INDICATION: Altered mental status COMPARISON: Head CT dated 01/16/2015 and 10/21/2008. TECHNIQUE: Routine CT Head without IV contrast. Multiplanar reformats. Dose reduction techniques were used. FINDINGS: INTRACRANIAL CONTENTS: No intracranial hemorrhage, extraaxial collection, or mass effect. Mild effacement of the bilateral cerebral sulci is increased compared to the 2014 study and could suggest cerebral edema, most pronounced in the left frontal lobe (series 3 image 18). There also is also mild hazy gatica-white matter differentiation in the left frontal lobe. No hydrocephalus. Partially empty sella. VISUALIZED ORBITS/SINUSES/MASTOIDS: Prior bilateral cataract surgery. Visualized portions of the orbits are otherwise unremarkable. No paranasal sinus mucosal disease. No middle ear or mastoid effusion. BONES/SOFT TISSUES: No acute abnormality. Procedure Note Jaspreet Hankins MD - 04/27/2024 EXAM: CT HEAD W/O CONTRAST LOCATION: [facility] DATE: 04/27/2024 INDICATION: Altered mental status COMPARISON: Head CT dated 01/16/2015 and 10/21/2008. TECHNIQUE: Routine CT Head without IV contrast. Multiplanar reformats.Dose reduction techniques were used. FINDINGS: INTRACRANIAL CONTENTS: No intracranial hemorrhage, extraaxial collection,or mass effect. Mild effacement of the bilateral cerebral sulci isincreased compared to the 2014 study and could suggest cerebral edema,most pronounced in the left frontal lobe (series 3 image 18). There also is also mild hazy gatica-white matterdifferentiation in the left frontal lobe. No hydrocephalus. Partiallyempty sella. VISUALIZED ORBITS/SINUSES/MASTOIDS: Prior bilateral cataract surgery.Visualized portions of the orbits are otherwise unremarkable. No paranasalsinus mucosal disease. No middle ear or mastoid effusion. BONES/SOFT TISSUES: No acute abnormality. IMPRESSION: 1. Questionable hazy gatica-white matter differentiation and cerebralsulcal effacement, most pronounced in the left frontal lobe could suggestcerebral edema. Recommend brain MRI to further evaluate. 2. No CT evidence for intracranial hemorrhage. 3. Partially empty sella. Communication pending. Taty Verdugo MD [facility] CT ORDERABLES Edited Result - Final * (ABNORMAL) Urine Drug Screen Panel (04/27/2024 9:27 AM [facility]) Amphetamines Urine Screen Positive(A) Screen Negative 04/27/2024 10:[address] [facility] Comment: Cutoff for a positive amphetamine is 500 ng/mL or greater. This is an unconfirmed screening result to be used for medical purposes only. Barbituates Urine Screen Negative Screen Negative 04/27/2024 10:[address] [facility] Comment:Cutoff for a negativ e barbiturate is less than 200 ng/mL. Benzodiazepine Urine Screen Negative Screen Negative 04/27/2024 10:[address] [facility] Comment:Cutoff for a negativ e benzodiazepine is less than 100 ng/mL. Cannabinoids Urine Screen Positive(A) Screen Negative 04/27/2024 10:[address] [facility] Comment: Cutoff for a positive cannabinoid is 50 ng/mL or greater. This is an unconfirmed screening result to be used for medical purposes only. Cocaine Urine Screen Negative Screen Negative 04/27/2024 10:[address] [facility] Comment:Cutoff for a negativ e cocaine is less than 300 ng/mL. Fentanyl Qual Urine Screen Negative Screen Negative 04/27/2024 10:[address] [facility] Comment:Cutoff for negative fentanyl is less than 5 ng/mL. Opiates Urine Screen Negative Screen Negative 04/27/2024 10:[address] [facility] Comment:Cutoff for a negativ e opiate is less than 300 ng/mL. PCP Urine Screen Negative Screen Negative 04/27/2024 10:[address] [facility] Comment:Cutoff for a negativ e PCP is less than 25 ng/mL. Urine URINE SPECIMEN FROM URINARY CONDUIT / Unknown Non-blood Collection / Unknown 04/27/2024 9:27 AM MEDICINE AND HEALTH SERVICE MANAGER 04/27/2024 9:33 AM MEDICINE AND HEALTH SERVICE MANAGER Taty Verdugo MD LAB - URINE ORDERABLES F inal Result [facility] [address] Lab (1st floor, no room number) [place] [address], [facility] * XR Chest Port 1 View (04/27/2024 9:12 AM MEDICINE AND HEALTH SERVICE MANAGER) Anatomical Region Laterality Modality Chest Digital Radiogra phy 04/27/2024 9:12 AM MEDICINE AND HEALTH SERVICE MANAGER Impressions 04/27/2024 9:15 AM MEDICINE AND HEALTH SERVICE MANAGER IMPRESSION: Lungs are clear. No effusions or pneumothorax. Heart size is normal. Cholecystectomy. Mild nonspecific gaseous distention of the visualized bowel in the upper abdomen. Narrative 04/27/2024 9:15 AM MEDICINE AND HEALTH SERVICE MANAGER EXAM: XR CHEST PORT 1 VIEW LOCATION: [facility] DATE: 04/27/2024 INDICATION: drug overdose COMPARISON: 10/11/2019 Procedure Note Kev Saldana MD - 04/27/2024 EXAM: XR CHEST PORT 1 VIEW LOCATION: [facility] DATE: 04/27/2024 INDICATION: drug overdose COMPARISON: 10/11/2019 IMPRESSION: Lungs are clear. No effusions or pneumothorax. Heart size isnormal. Cholecystectomy. Mild nonspecific gaseous distention of thevisualized bowel in the upper abdomen. Taty Verdugo MD IMG DIAGNOSTIC IMAGING O RDERABLES Final Result * (ABNORMAL) Glucose by meter (04/27/2024 9:08 AM MEDICINE AND HEALTH SERVICE MANAGER) [facility] GLUCOSE BY METER POCT 169(H) 70 - 99 mg/dL 04/27/2024 9:15 AM MEDICINE AND HEALTH SERVICE MANAGER LABORATORY POC Blood, Capillary BLOOD SPECIMEN / Unknown 04/27/2024 9:08 AM MEDICINE AND HEALTH SERVICE MANAGER 04/27/2024 9:15 AM MEDICINE AND HEALTH SERVICE MANAGER Taty Verdugo MD LAB - BEAKER POCT Final Result Performing Organization Address [facility]/State/ZIP Co de Phone Number [facility] Lab [address] Lab (1st floor, no room number) [place] [phone] * (ABNORMAL) iStat Gases (lactate) venous, POCT (04/27/2024 9:06 AM MEDICINE AND HEALTH SERVICE MANAGER) Lactic Acid POCT 2.8(H) <=2.0 mmol/L 04/27/2024 9:11 AM MEDICINE AND HEALTH SERVICE MANAGER [facility] POC Bicarbonate Venous POCT 22 21 - 28 mmol/L 04/27/2024 9:11 AM MEDICINE AND HEALTH SERVICE MANAGER [facility] POC O2 Sat, Venous POCT 93(H) 70 - 75 % 04/27/2024 9:11 AM MEDICINE AND HEALTH SERVICE MANAGER [facility] POC pCO2 Venous POCT 39(L) 40 - 50 mm Hg 04/27/2024 9:11 AM MEDICINE AND HEALTH SERVICE MANAGER [facility] POC pH Venous POCT 7.37 7.32 - 7.43 04/27/2024 9:11 AM MEDICINE AND HEALTH SERVICE MANAGER [facility] POC pO2 Venous POCT 70(H) 25 - 47 mm Hg 04/27/2024 9:11 AM MEDICINE AND HEALTH SERVICE MANAGER [facility] POC Blood, venous BLOOD SPECIMEN / Unknown 04/27/2024 9:06 AM MEDICINE AND HEALTH SERVICE MANAGER 04/27/2024 9:11 AM MEDICINE AND HEALTH SERVICE MANAGER Taty DEAL - JENNIFER POCT Final Result Performing Organization Address [facility]/ZIP Co de Phone Number [facility] Lab [address] Lab (1st floor, no room number) [place] [phone] * Extra Red Top Tube (04/27/2024 9:03 AM MEDICINE AND HEALTH SERVICE MANAGER) Hold Specimen JIC 04/27/2024 10:31 AM MEDICINE AND HEALTH SERVICE MANAGER [facility] Blood BLOOD SPECIMEN / Unknown Venipuncture / Unknown 04/27/2024 9:03 AM MEDICINE AND HEALTH SERVICE MANAGER 04/27/2024 9:16 AM MEDICINE AND HEALTH SERVICE MANAGER us Taty Verdugo MD LAB - BLOOD ORDERABLES F inal Result RH [facility]AT[facility] [address] Lab (1st floor, no room number) [place] [address], [facility] * (ABNORMAL) CBC with platelets and differential (04/27/2024 9:03 AM MEDICINE AND HEALTH SERVICE MANAGER) WBC Count 13.4(H) 4.0 - 11.0 10e3/uL 04/27/2024 9:21 AM MEDICINE AND HEALTH SERVICE MANAGER [facility] RBC Count 4.90 3.80 - 5.20 10e6/uL 04/27/2024 9:21 AM MEDICINE AND HEALTH SERVICE MANAGER [facility] Hemoglobin 15.5 11.7 - 15.7 g/dL 04/27/2024 9:21 AM MEDICINE AND HEALTH SERVICE MANAGER [facility] Hematocrit 44.4 35.0 - 47.0 % 04/27/2024 9:21 AM MEDICINE AND HEALTH SERVICE MANAGER [facility] MCV 91 78 - 100 fL 04/27/2024 9:21 AM MEDICINE AND HEALTH SERVICE MANAGER [facility] MCH 31.6 26.5 - 33.0 pg 04/27/2024 9:21 AM MEDICINE AND HEALTH SERVICE MANAGER [facility] MCHC 34.9 31.5 - 36.5 g/dL 04/27/2024 9:21 AM MEDICINE AND HEALTH SERVICE MANAGER [facility] RDW 12.0 10.0 - 15.0 % 04/27/2024 9:21 AM MEDICINE AND HEALTH SERVICE MANAGER [facility] Platelet Count 324 150 - 450 10e3/uL 04/27/2024 9:21 AM MEDICINE AND HEALTH SERVICE MANAGER [facility] % Neutrophils 60 % 04/27/2024 9:21 AM MEDICINE AND HEALTH SERVICE MANAGER [facility] % Lymphocytes 29 % 04/27/2024 9:21 AM MEDICINE AND HEALTH SERVICE MANAGER [facility] % Monocytes 9 % 04/27/2024 9:21 AM MEDICINE AND HEALTH SERVICE MANAGER [facility] % Eosinophils 2 % 04/27/2024 9:21 AM MEDICINE AND HEALTH SERVICE MANAGER [facility] % Basophils 0 % 04/27/2024 9:21 AM MEDICINE AND HEALTH SERVICE MANAGER [facility] % Immature Granulocytes 0 % 04/27/2024 9:21 AM MEDICINE AND HEALTH SERVICE MANAGER [facility] NRBCs per 100 WBC 0 <1 /100 025 9:21 AM MEDICINE AND HEALTH SERVICE MANAGER [facility] Absolute Neutrophils 8.0 1.6 - 8.3 10e3/uL 04/27/2024 9:21 AM MEDICINE AND HEALTH SERVICE MANAGER [facility] Absolute Lymphocytes 3.9 0.8 - 5.3 10e3/uL 04/27/2024 9:21 AM MEDICINE AND HEALTH SERVICE MANAGER [facility] Absolute Monocytes 1.1 0.0 - 1.3 10e3/uL 04/27/2024 9:21 AM MEDICINE AND HEALTH SERVICE MANAGER LABORATORY Absolute Eosinophils 0.3 0.0 - 0.7 10e3/uL 04/27/2024 9:21 AM MEDICINE AND HEALTH SERVICE MANAGER LABORATORY Absolute Basophils 0.1 0.0 - 0.2 10e3/uL 04/27/2024 9:21 AM MEDICINE AND HEALTH SERVICE MANAGER LABORATORY Absolute Immature Granulocytes 0.1 <=0.4 10e3/uL 04/27/2024 9:21 AM MEDICINE AND HEALTH SERVICE MANAGER LABORATORY Absolute NRBCs 0.0 10e3/uL 04/27/2024 9:21 AM MEDICINE AND HEALTH SERVICE MANAGER LABORATORY Blood BLOOD SPECIMEN / Unknown Venipuncture / Unknown 04/27/2024 9:03 AM MEDICINE AND HEALTH SERVICE MANAGER 04/27/2024 9:16 AM MEDICINE AND HEALTH SERVICE MANAGER us Taty Vedrugo MD LAB - BLOOD ORDERABLES F inal Result LABORATORY [facility] [address] [facility] Lab (1st floor, no room number) [place] [address] * Troponin T, High Sensitivity (04/27/2024 9:03 AM MEDICINE AND HEALTH SERVICE MANAGER) [facility] Troponin T, High Sensitivity <6 <=14 ng/L 04/27/2024 9:38 AM MEDICINE AND HEALTH SERVICE MANAGER LABORATORY Comment: Either a High Sensitivity Troponin T baseline (0 hours) value = 100 ng/L, or an increase in High Sensitivity Troponin T = 7 ng/L at 2 hours compared to 0 hours (2-0 hours), suggests myocardial injury, and urgent clinical attention is required. If the 2-0 hours increase is <7 ng/L, a High Sensitivity Troponin T result above gender-specific reference ranges warrants further evaluation. Recommendations for further evaluation include correlation with clinical decision-making tool (e.g., HEART), a 3rd High Sensitivity Troponin T test 2 hours after the 2nd (a 20% change from baseline would represent concern), admission for observation, close PCC/cardiology follow-up, or urgent outpatient provocative testing. Blood BLOOD SPECIMEN / Unknown Venipuncture / Unknown 04/27/2024 9:03 AM MEDICINE AND HEALTH SERVICE MANAGER 04/27/2024 9:16 AM MEDICINE AND HEALTH SERVICE MANAGER Taty Verdugo MD LAB - BLOOD ORDERABLES F inal Result [facility] Lab [address] Lab (1st floor, no room number) [place] [address] * Salicylate level (04/27/2024 9:03 AM MEDICINE AND HEALTH SERVICE MANAGER) Salicylate <0.3 mg/dL 04/27/2024 10:35 AM MEDICINE AND HEALTH SERVICE MANAGER LABORATORY Comment: Salicylate Reference Range Therapeutic: 3-10 mg/dL Anti inflammatory: 15-30 mg/dL Blood BLOOD SPECIMEN / Unknown Venipuncture / Unknown 04/27/2024 9:03 AM MEDICINE AND HEALTH SERVICE MANAGER 04/27/2024 9:16 AM MEDICINE AND HEALTH SERVICE MANAGER Taty Verdugo MD LAB - BLOOD ORDERABLES F inal Result Performing Organization Address City/[facility]/ZIP Co de Phone Number [facility] Lab [address] Lab (1st floor, no room number) [place] [address], [facility] * HCG QUALitative (blood) (04/27/2024 9:03 AM MEDICINE AND HEALTH SERVICE MANAGER) Pathologist [facility] hCG Serum Qualitative Negative Negative MARTHA 04/27/2024 10:19 AM MEDICINE AND HEALTH SERVICE MANAGER LABORATORY Comment:This test is for scr eening purposes. Results should be interpreted along with the clinical picture. Confirmation testing is available if warranted by ordering [id number], HCG Quantitative . Blood BLOOD SPECIMEN / Unknown Venipuncture / Unknown 04/27/2024 9:03 AM MEDICINE AND HEALTH SERVICE MANAGER 04/27/2024 9:16 AM MEDICINE AND HEALTH SERVICE MANAGER Taty Verdugo MD LAB - BLOOD ORDERABLES F inal Result [facility] [address] Lab (1st floor, no room number) [place] [address], [facility] * (ABNORMAL) Alcohol level blood (04/27/2024 9:03 AM MEDICINE AND HEALTH SERVICE MANAGER) Alcohol ethyl 0.30(H) <=0.01 g/dL 04/27/2024 11:06 AM MEDICINE AND HEALTH SERVICE MANAGER LABORATORY Blood BLOOD SPECIMEN / Unknown Venipuncture / Unknown 04/27/2024 9:03 AM MEDICINE AND HEALTH SERVICE MANAGER 04/27/2024 9:16 AM MEDICINE AND HEALTH SERVICE MANAGER Taty Verdugo MD LAB - BLOOD ORDERABLES F inal Result LABORATORY [facility] Lab [address] [facility] Lab (1st floor, no room number) [place] [address] * EKG Cardiac - HIM Scan (04/27/2024 12:00 AM MEDICINE AND HEALTH SERVICE MANAGER) Only the most recent of4 resultswithin the time period is included. 04/27/2024 us Provider Outside ECG ORDERABLES Final Result * MA Diagnostic Bilateral w/Sixto (12/29/2022 1:16 [...] IMG MAMMOGRAPHY ORDERABLES Fi nal Result * (ABNORMAL) A pap thin layer screen with HPV - recommended age 30 - 65 years (select HPV order below) (09/14/2018 3:12 PM CDT) PAP ASC-US(A) YRN Lawson Report Patient Name: SEEMA CORDERO MR#: [id number] Specimen #: [id number] Collected: 09/14/2018 Received: 09/18/2018 Reported: 09/24/2018 14:24 [...] adenocarcinomas or other cancers. COLLECTION SITE: Client: [facility] Location: [facility] (B) The technical component of this testing was completed at the [facility], with the professional component performed at the [facility], [address] [place] [id number] ([phone]) COP[facility] Cytologic material (specimen) 09/14/2018 3:12 PM CDT 09/18/2018 8:30 AM CDT Marina Alejandro NP LAB - OPTIME CLINICAL SPECIMEN F inal Result COPATH * HPV High Risk Types DNA Cervical (09/14/2018 3:12 PM CDT) HPV Source [facility] 09/14/2018 3:12 PM CDT [facility] HPV 16 DNA Negative NEG^Nega tive 09/25/2018 12:34 PM CDT [facility] HPV 18 DNA Negative NEG^Nega tive 09/25/2018 12:34 PM CDT [facility] Other HR HPV Negative NEG^Nega tive 09/25/2018 12:34 PM CDT [facility] Final Diagnosis This patient's sample is negative for HPV DNA. 09/25/2018 12:34 PM CDT [facility] Comment: This test was developed and its performance characteristics determined by the [facility], Molecular Diagnostics Laboratory. It has not been [...] Description Cervical Cells 09/14/2018 3:12 PM CDT [facility] Comment:[id number] Cervical Cells CERVIX UTERI STRUCTURE / Unknown 09/14/2018 3:12 PM CDT 09/17/2018 10:55 AM CDT Marina Alejandro NP LAB - BLOOD ORDERABLES Final Res ult [facility] [address] [place] [address] [address] [phone] * Hepatitis C (HIM External Result) (05/28/2018 2:31 PM MEDICINE AND HEALTH SERVICE MANAGER) Hep C HIM See Scanned Document [facility] 05/28/2018 2:31 PM MEDICINE AND HEALTH SERVICE MANAGER Narrative [facility] - 05/28/2018 2:31 PM MEDICINE AND HEALTH SERVICE MANAGER See Care Everywhere - [facility] us Provider Outside LAB - HIM EXTERNAL RESULT Final Result [facility] [address] [place] [address], [facility] [phone] * HIV Antigen Antibody Combo (05/28/2018) HIV Antigen Antibody Combo Nonreactive Nonreactive [facility] Comment:HIV Screen includes testing for HIV-1 antigen and antibodies to both HIV-1 and HIV-2. Blood specimen (specimen) 05/28/[address] [facility] - 05/28/2018 See Care Everywhere- [facility]. us Provider Outside LAB - BLOOD ORDERABLES Final Re sult [facility] [address] [place] [address], [facility] [phone] from Last 3 Months or Most Recently Relevant to Health Maintenance Insurance [facility] [employer]NAG[employer] Advance Directives For more information, please contact: [phone] * Full Code (Latest Code Status on File) Date Activated Date Inactivated Comments 04/29/2024 5:16 PM 05/02/2024 2:27 PM All basic an d advanced life-sustaining interventions are performed as appropriate Question Answer Comments Code status determined by: Discussion with patie nt/ legal decision maker * Full Code Date Activated Date Inactivated Comments 04/27/2024 8:08 PM 04/29/2024 5:08 PM All basic an d advanced life-sustaining interventions are performed as appropriate Question Answer Comments Code status determined by: Discussion with patie nt/ legal decision maker Care Teams Welt Treater Relationship Specialty Start Date End Date Terence Smyth MD [facility] [address] [place] [address] PCP - General Family Medicine 04/27/24 Alma Valencia, PT [address] [place] [address] [address] [place], [place] [id number] Specialty Makeup Artist Physical Medicine and Rehabilitation 02/12/19 Leonor Draper MD [address] [place] [phone] Physical Medicine and Rehabilitation 02/12/19 [place] [address] Specialty Makeup Artist Physical Medicine and Rehabilitation 02/12/19 Rahul Orourke MD [address] [address] Assigned Surgical Provider 02/04/23 Bina Chen CNP [address] [place] [address] Assigned PCP 05/26/24
[2024-05-29] MEDS: SODIUM CHLORIDE 0.9 % (FLUSH) 10 ML SYRINGE IVF (07:20)
[2024-05-29] MEDS: LACTATED RINGERS 1000 ML 1,000 ML 100 ML IV ×2 (07:25→10:30)
--- NOTE | 2024-05-29 07:34 | W.PM.H&PU ---
History & Physical Update History & Physical Update H&P Reviewed and patient assessed: No changes noted H&P Updates: No increased pain or abnormal vaginal bleeding
[2024-05-29 07:37] LABS: Hemoglobin* 14.4 gm/dL (12.0-16.0)
[2024-05-29 07:55] LABS: Est. Creatinine Clearance* 51.35; Estimated Glomerular Filt Rate 69 ml/min
[2024-05-29] MEDS: CEFAZOLIN 2 GM INJ IVP (09:00)
--- NOTE | 2024-05-29 09:07 | W.PM.NB ---
Nerve Block Nerve Block Time Seen by Provider: 09:00 Date Seen: 05/29/24 Type of block requested by surgeon for post-operative analgesia: TAP Side: bilateral Time out performed: Yes Verification of patient name: Yes Verification of date of : Yes Site marking: site marked Name of person performing procedure: Himanshu Jennings Continuous monitoring Was continuous monitoring of O2 sat, B/P, cardiac cath technologist, recorded every 15 minutes?: Yes Procedure Checklist: sterile prep, needles and gloves Ultrasound guided. Images saved: Yes Medications given in 5ml increments after negative aspiration: Marcaine %: 0.25 mL: 30 Needle gauge: 20 and Exparel mL: 10 Needle gauge: 20 Patient tolerated procedure well: Yes Additional comments: Injected in 5ml increments after negative aspiration Block Charges Block Charge (with Pro Fee): TAP Bilateral Use of Ultrasound Machine for Block: Yes- US Guidance/pain block
[2024-05-29] MEDS: LIDOCAINE 1%-EPI 1:100,000 20 ML INFILTRATI (09:58)
--- NOTE | 2024-05-29 11:13 | W.PM.GYNPROC ---
Procedure Note Date of procedure: 05/29/24 Will [facility] bill your pro fee for this procedure?: Yes Pre-op diagnosis: 1. Pos endometrial ablation syndrome. 2. Pelvic pain. Post-op diagnosis: Same. Procedure: Total laparoscopic hysterectomy, bilateral partial salpingectomies, diagnostic cystoscopy Anesthesia: GETA Complications: None. Surgeon: Jemma Gamez MD Shop Technician: Rafaela Campbell Pathology: specimen obtained, sent to pathology Disposition: PACU Findings: See note by Dr. Gamez. Procedure Description: Please see the operative report by Dr. Gamez for full details of the procedure. I was asked to assist. I was scrubbed in for the entire procedure until closure of the abdominal incisions. I provided assistance with laparoscopic port placement, lysis of adhesions, visualization and retraction, and with the hysterectomy from the right side, as well as with hemostasis and closure of the vaginal cuff.
--- NOTE | 2024-05-29 11:19 | SUR.OPER ---
uterus 123g
--- NOTE | 2024-05-29 11:30 | W.ANESCHARGE ---
Anesthesia Charges Start Date/Time Anesthesia Start Date: 05/29/24 Anesthesia Start Time: 08:47 Stop Date/Time Anesthesia Stop Date: 05/29/24 Anesthesia Stop Time: 11:32 Coding CPT Codes CPT Codes: ANESTH SURG LOWER ABDOMEN - 17006 ([id number]) P2 - PATIENT W/MILD SYST DISEASE, QZ - WIND UP WORKER SVC W/O ADVICE CLERK BY
[2024-05-29] MEDS: fentaNYL 100 MCG/2 ML inj 50 MCG IVP ×2 (11:40→12:06)
--- NOTE | 2024-05-29 11:44 | SUR.PHASEI ---
Patient arrived in PACU drowsy. She woke up in the first 5 minutes. Stated her pain level was a 7 when asked. Fentanyl given for pain.
--- NOTE | 2024-05-29 12:36 | PM.GYNPRHY ---
Procedure Type of Hysterectomy: Total Laparoscopic Pre-op/Post-op diagnoses: Pre-Op/Post-Op Diagnoses Operation Date: 05/29/24 08:25 <No data on this case meets the specified criteria> Procedure: Procedures Operation Date: 05/29/24 08:25 Actual Procedure Side Surgeon p M/S-Total Laparoscopic Hysterectomy, Bilateral fimbriectomy, Cystoscopy Jemma Gamez MD Link Knitting Machine Operator: Rafaela Campbell Estimated blood loss (mL): 15 Anesthesia Type: General and Local Complications: none Fluids: crystalloid Fluid amount (mL): 1,600 Urine output (mL): 600 Weight of Uterus: 4.339 oz Specimen: uterus and other (Bilateral fimbria) Disposition: floor Narrative: Findings: On exam under anesthesia: Normal appearing external genitalia. Normal appearing cervix. The uterus was anteverted, approximately 6 week size, mobile. No masses palpable. Adnexa without mass or fullness palpable. On laparoscopy: Normal appearing uterus with clotted menstrual blood at bilateral cornua, bilateral fallopian tubes surgically absent except for small amount of fimbria on both sides. Bilateral ovaries with physiologic cysts noted, otherwise normal. Posterior cul-de-sac within Kvng-Masters window noted. Filmy adhesion of bowel to anterior abdominal wall on right lower quadrant at the site of previous appendectomy. Small amount of filmy adhesion of the sigmoid colon to the left anterior abdominal wall. Normal appearing liver. Cystoscopy: The dome of the bladder was noted to be without defect and no evidence of any sutures from the vaginal cuff causing injury. Normal urine flow was noted through both ureteral orifices. Preoperative diagnosis: Seema is a 48-year-old 3 para 3 with post ablation tubal sterilization syndrome. Postoperative diagnosis: Same Procedure: Seema was taken to the operating room where general anesthetic was found to be adequate. She was placed in the dorsal lithotomy position and an exam under anesthesia was performed with findings stated above. She was then prepped and draped in a normal sterile manner. A Orozco catheter was placed. Decision was made to place all laparoscopic ports first and observe placement of the uterine manipulator under intra-abdominal observation due to difficulties entering the uterine cavity during preoperative workup and anticipated synechia of the uterine cavity. Attention was then turned to performing the laparoscopic portion of the procedure. All incisions were infiltrated with 1% lidocaine with epinephrine prior to incising the skin. A vertical, infraumbilical 5 mm incision was made. A 5 mm trocar was then placed under direct visualization. The abdomen was then insufflated with CO2 gas to a pressure of 15 mm of mercury. Two pelvic ports were then placed approximately 3-4 finger breaths medial to the ischial crests. The trocar in the RLQ = 5mm, LLq = 11mm. A 4th port was made in the patient's left lower quadrant, just superior medial to the left ASIS. A 5 mm Fios Kii port was inserted under direct visualization and without complication. The balloon on each of the 4 ports was inflated, holding each in place. These were placed under direct visualization. Attention was then turned towards placing the uterine manipulator. A bivalve speculum was placed in the vaginal canal. A long tenaculum clamp was placed on the anterior lip of the cervix, in the uterus sounded to 8 cm. During dilation, old dark blood was expressed from uterine cavity. A large size VCare uterine manipulator was then placed. The tenaculum clamp and speculum were removed from the cervix. Attention was then turned to performing the hysterectomy. The left fimbria was grasped, dissected of the left ovary and removed with ligasure [place] tip dissecting forceps. The left side of the hysterectomy was performed using the ligasure dissecting forceps. The 1st pedicles were starting with the broad ligament that was cauterized and and bisected. In sequence show pedicles were formed to divide the utero-ovarian ligament. Then sequential pedicles were made through the broad ligament. The posterior leaf of the broad ligament was then divided and sequential pedicles carried down to the level of the VCare cup. The anterior leaf of the broad ligament was then divided down to the level of the anterior aspect of the VCare cup and a bladder flap created. The uterine vessels were then skeletonized. The uterine vessels were then cauterized and divided. Then excess tissue was cleared over the top of the VCare cup using the dissecting forceps. The right fimbriectomy and right side of the hysterectomy were then performed in a similar manner. The Ligasure Greycorklab pen with the spatula attachment was then used to perform the colpotomy incising around the VCare cup. The uterus was removed and the fundus placed in the vaginal canal to maintain insufflation. The vaginal cuff was then reapproximated using 2-0 V lock suture in a running manner. All the pedicles and vaginal cuff were then closely visualized and hemostasis obtained with bipolar cautery using the LigaSure dissecting forceps or the Greycorklab pen with the spatula. Excellent hemostasis noted. The the uterus was removed from the vaginal canal and sent to pathology. The Orozco catheter was briefly removed. A diagnostic cystoscopy was performed using normal saline as the insufflation medium. Findings noted from above. Fluorescein IV was given intraoperatively to visualize the urine more easily. Orozco catheter was then replaced to be retained until removal on POD#1. Attention was then returned to the abdomen where hemostasis was verified. The CO2 pressure decreased to 5mmHG and hemostasis verified. The fascia in the LLQ incision was approximated with 0-Vicryl suture using the Ryan Thomas fascial closure device. This was closed under direct visualization with the laparoscope. All trocars were removed under direct visualization. CO2 gas was allowed to escape the infraumbilical port prior to its removal. All skin incisions were re-approximated using 4-0 Monocryl in a running subcuticular manner, Exophin skin adhesive gel and adhesive bandages placed. The patient tolerated this procedure well. Sponge, lap and instrument counts were correct x2 at the end of the procedure and the patient was taken to the recovery area in stable condition. The patient received 2gm IV ancef prior to the start of the procedure. Surgical debrief and specimen review performed.
[2024-05-29] MEDS: IBUPROFEN 600 MG TABLET PO ×2 (13:14→20:20)
[2024-05-29] MEDS: ACETAMINOPHEN 500 MG TABLET 1000 MG PO ×2 (13:14→23:59)
[2024-05-29] MEDS: OXYCODONE 5 MG TABLET PO ×2 (14:26→18:30)
[2024-05-29] MEDS: hydrOXYzine pamoate 25 MG CAPSULE PO ×2 (14:26→18:30)
--- NOTE | 2024-05-29 18:02 | PC.NURSE ---
End of Shift: Patient pleasant and cooperative. Patient vitally stable, lungs clear, BS WNL, IV SL and intact. Patient rates abdominal pain at most 8/10, tylenol, ibuprofen, oxy, and vistaril all given once. Active ice used on abdomen. Abdominal Lap sites x4 C/D/I. Patient up to chair for dinner, tolerating regular diet. Catheter in place and draining. Vaginal pad with scant drainage.
--- NOTE | 2024-05-29 23:38 | PC.NURSE ---
Nursing Care Hours: 2251-1681 Pt this shift alert and oriented, calm and cooperative. Pain tolerable at 2/10 in bed. 9/10 with standing and walking to bathroom but pt tolerating well. VSS. BS hypoactive. SB assist to BR. Denies nausea.
[2024-05-30 02:19] VITALS: BP 118/80; PULSE 69; RESP 18; TEMP 36.7; O2SAT 94
[2024-05-30] MEDS: OXYCODONE 5 MG TABLET PO (02:24)
--- NOTE | 2024-05-30 06:30 | PC.NURSE ---
End of shift [id number]: A&O pleasant and cooperative. VSS. Afebrile. Lap sites c/d/i. Reporting intermittent pain in abdomen. See eMAR for interventions. s/o at bedside overnight. Up w/ sba to bathroom. Tolerates well. Using call light appropriately.
[2024-05-30 06:42] LABS: Hemoglobin* 13.1 gm/dL (12.0-16.0)
[2024-05-30 07:00] VITALS: BP 118/71; PULSE 69; PULSE 90; RESP 18; TEMP 37; O2SAT 91
[2024-05-30 07:00] LABS: Creatinine* 0.8 mg/dL (0.5-1.5); Est. Creatinine Clearance* 64.19; Estimated Glomerular Filt Rate 90 ml/min
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
[2024-05-30] MEDS: buPROPion XL 150 MG TABLET 300 MG PO (08:16)
[2024-05-30] MEDS: LEVOTHYROXINE 25 MCG TABLET PO (08:17)
--- NOTE | 2024-05-30 11:04 | PC.NURSE ---
Nursing Care Hours: [id number] Pt this shift calm and cooperative, alert and oriented. Pain rated 2/10, BS active. VSS. Independent in the room, tolerating regular diet. Voiding and passing gas per pt. IV removed for shower and discharge. Discharge instructions went over with pt and SO. No concerns or questions from pt. Wheeled out to vehicle in stable condition.
--- NOTE | 2024-05-30 11:52 | PM.ANPOST ---
Post Anesthesia Note Post Anesthesia Note Patient seen: Inpatient Respiratory Status: adequate Cardiovascular Status: adequate Mental Status: baseline Pain: adequate Temp: baseline Anesthetic awareness: N/A Complications: none Follow care: none
== END 2024-05-30 10:15 | disposition home or self-care (01) ==
LOC: OR 06:49 → MEDSURG 06:49
PROVIDERS: PCP Family Medicine; Visit Provider Obstetrics & Gynecology
PROC: 0UT94ZZ Resection of Uterus, Percutaneous Endoscopic Approach (ICD-10-PCS; CPT 58571; principal; 2024-05-29 08:15)
DX: N99.85 Post endometrial ablation syndrome (principal); R10.2 Pelvic and perineal pain; N83.292 Other ovarian cyst, left side; N83.291 Other ovarian cyst, right side; D25.1 Intramural leiomyoma of uterus; G89.18 Other acute postprocedural pain; F41.9 Anxiety disorder, unspecified; F43.10 Post-traumatic stress disorder, unspecified; F32.A Depression, unspecified; G47.00 Insomnia, unspecified; F90.9 Attention-deficit hyperactivity disorder, unspecified type; G43.909 Migraine, unspecified, not intractable, without status migrainosus
CPT/HCPCS: 58571; 00840; 36415; 64488; 76942; 82565; 85018; 86850; 86900; 86901; 88307; A4314; A9270; J0330; J0665; J0666; J0690; J1100; J2250; J2371; J2405; J2704; J2710; J3010; J3475; J3490; J7120

== ENCOUNTER 2024-06-14 15:27 | Emergency (ER) | payer BC, SELFPAY ==
--- OUTSIDE RECORDS SUMMARY | 2024-06-14 15:30 | XMS_ITS | Encounter Summary ---
Author Organization [place] Address [facility] [place] [address] Care Team Providers Care Gmat Tutor Name Role Phone Edilberto Lopez MD Primary Care Provider [phone] Edilberto Lopez MD Unavailable [phone] Alma Valencia PT Unavailable [phone] Leonor Draper MD Unavailable [phone] Jerri Fink RN Unavailable Leonor Draper MD Unavailable Claude Amaro MD Unavailable No Ref-Primary, Physician Primary Care Provider Theresa Carpio MD Primary Care Provider [phone] Theresa Carpio MD Unavailable [phone] Theresa Carpio MD Unavailable [phone] Paty Dacosta NP Unavailable Rahul Orourke MD Unavailable [phone] Terence Smyth MD Primary Care Provider [phone] Bina Chen CNP Unavailable [phone] Reason for Visit * Reason Comments Medication Refill Ambien Encounter Details Date Type Department Care Team (Late st Contact Info) Description 11/18/2015 Refill [facility] [address] [place] [address] Edilberto Lopez MD [address] [facility] [place] [id number] Medication Refill (Ambien) Social History Tobacco Use Types Packs/Day Years Used Date Smoking Tobacco: Former Cigarettes Q uit: 07/29/1996 Smokeless Tobacco: Never Comments:no passive exposure Alcohol Use Standard Drinks/Week Comments No 0 (1 standard drink = 0.6 oz pur e alcohol) Comments No Sex and Gender Information Value Date Recorded Sex Assigned at Not on file Legal 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 Lopez. Last refill for Ambien 7..16 #30. Last office visit 16. documented in this encounter Plan of Treatment Not on file documented as of this encounter Visit Diagnoses Diagnosis Insomnia, psychophysiological- Primary Persistent disorder of initiating or maintaining sleep documented in this encounter Additional Health Concerns Infection Onset Date Last Indicated Resolved Time Rule Out COVID-19 10/11/2019 10/11/2019 10/14/2019 5:25 PM CDT Rule Out COVID-19 02/03/2020 02/03/2020 02/04/2020 4:32 PM AUTO MACHINIST Rule Out COVID-19 12/12/2022 12/12/2022 12/12/2022 1:09 PM CDT COVID-19 12/12/2022 12/12/2022 01/02/2023 11:3 9 PM CDT Rule Out COVID-19 04/27/2024 04/27/2024 04/27/2024 8:24 PM AUTO MACHINIST Assessment Noted Time PHQ-9 Depression Total Score: 2 10/28/19 16 7:18 AM CDT documented as of this encounter Care Teams Gmat Tutor Relationship Specialty Start Date End Date Edilberto Lopez MD [address] [place] [address] PCP - General 05/30/12 06/23/22 No Ref-Primary, Physician PCP - General 06/24/22 12/25/22 Theresa Carpio MD [address] [place] [address] PCP - General Family Medicine 12/26/22 04/26/24 Terence Smyth MD [facility] [address] [place] [address] PCP - General Family Medicine 04/27/24 Edilberto Lopez MD [address] [place] [address] Assigned PCP 12/29/13 07/18/20 Alma Valencia, PT [address] [place] [address] [address] [place] [address] Specialty Preschool Lead Teacher Physical Medicine and Rehabilitation 02/12/19 Leonor Draper MD [address] [place] [address] Physical Medicine and Rehabilitation 02/12/19 [place] [address] Specialty Preschool Lead Teacher Physical Medicine and Rehabilitation 02/12/19 Leonor Draper MD [address] [place] [address] Assigned Neuroscience Provider 01/24/20 06/12/21 Claude Amaro MD [address] [place], [place] 976056 Assigned OBGYN Provider 01/24/20 04/04/20 Theresa Carpio MD [address] [place] [address] Assigned Pain Medication Provider 01/14/23 04/26/23 Theresa Carpio MD [address] [place], [place] 590096 Assigned PCP 01/07/23 05/25/24 Paty Dacosta NP [address] [id number] Assigned Surgical Provider 01/07/23 02/03/23 Rahul Orourke MD [address] [place] [address] [id number] Assigned Surgical Provider 02/04/23 Bina Chen SENIOR IT AUDITOR [address] [place] [address] Assigned PCP 05/26/24 documented as of this encounter
--- OUTSIDE RECORDS SUMMARY | 2024-06-14 15:30 | XMS_ITS | Encounter Summary ---
Author Organization [place] Address [address] [place] [address] Care Team Providers Care Retirement Sales Consultant Name Role Phone Alma Valencia Tyler PT Unavailable [phone] Leonor Draper MD Unavailable Jerri Fink RN Unavailable [phone] Theresa Carpio MD Primary Care Provider Theresa Carpio MD Unavailable Theresa Carpio MD Unavailable Paty Dacosta AURICULOTHERAPIST Unavailable Rahul Orourke MD Unavailable Terence Smyth MD Primary Care Provider Bina Chen MELT HOUSE SUPERVISOR Unavailable [phone] Encounter Details Date Type Department Care Team (Late st Contact Info) Description 01/04/2023 MyC Medical Advice [facility] [address] [place] [address] Rocío Blair, RN Social History Tobacco Use [...] in an abandoned building, in an overnight longterm, or couch-surfing.) Yes 12/26/2022 Are you worried [...] on file 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 Gender Identity Not on file Sexual Orientation [...] filedocumented in this encounter Additional Health Concerns Infection Onset Date Last Indicated Resolved Time Rule Out COVID-19 04/27/2024 04/27/2024 04/27/2024 8:24 PM AIRPLANE FLIGHT ATTENDANT SUPERVISOR Assessment Noted Time PHQ-9 Depression Total Score: 1 12/27/19 11:15 AM CDT documented as of this encounter Care Teams Retirement Sales Consultant Relationship Specialty Start Date End Date Theresa Carpio MD [address] [place] [address] PCP - General Family Medicine 12/26/22 04/26/24 Terence Smyth MD [place] [id number] [address] [place] [address] PCP - General Family Medicine 04/27/24 Alma Valencia, PT [address] [place] [address] [address] [place], [place] 9[address] Specialty Vacuum Worker Physical Medicine and Rehabilitation 02/12/19 Leonor Draper MD [address] [place] [address] 536575 Physical Medicine and Rehabilitation 02/12/19 Jerri Fink RN RETIRED [place], [place] 388435 Specialty Vacuum Worker Physical Medicine and Rehabilitation 02/12/19 Theresa Carpio MD [address] [place] [address] Assigned Pain Medication Provider 01/14/23 04/26/23 Theresa Carpio MD [address] [place] [address] Assigned PCP 01/07/23 05/25/24 Paty Dacosta NP [address] [address] Assigned Surgical Provider 01/07/23 02/03/23 Rahul Orourke MD [address] [address] Assigned Surgical Provider 02/04/23 Bina Chen, MELT HOUSE SUPERVISOR [address] [place] [address] Assigned PCP 05/26/24 documented as of this encounter
--- OUTSIDE RECORDS SUMMARY | 2024-06-14 15:30 | XMS_ITS | Encounter Summary ---
Author Organization [place] Address [facility] [place] [address] Care Team Providers Care Instrumentation Instructor Name Role Phone Edilberto Lopez MD Primary Care Provider [phone] Edilberto Lopez MD Unavailable [phone] Alma Valencia PT Unavailable Leonor Draper MD Unavailable Jerri Fink RN Unavailable Leonor Draper MD Unavailable Claude Amaro MD Unavailable No Ref-Primary, Physician Primary Care Provider Theresa Carpio MD Primary Care Provider [phone] Theresa Carpio MD Unavailable [phone] Theresa Carpio MD Unavailable [phone] Paty Dacosta NP Unavailable Rahul Orourke MD Unavailable [phone] Terence Smyth MD Primary Care Provider [phone] Bina Chen CNP Unavailable [phone] Reason for Visit * Reason Comments Medication Refill Valium Encounter Details Date Type Department Care Team (Late st Contact Info) Description 06/28/2017 Refill [facility] [address] [place] [address] Edilberto Lopez MD [address] [facility] [place] [id number] Medication Refill (Valium) Social History Tobacco Use Types Packs/Day Years Used Date Smoking Tobacco: Former Cigarettes Q uit: 07/29/1996 Smokeless Tobacco: Never Comments:no passive exposure Alcohol Use Standard Drinks/Week Comments No 0 (1 standard drink = 0.6 oz pur e alcohol) Comments No Sex and Gender Information Value Date Recorded Sex Assigned at Not on file Legal Sex Female 1:27 AM STEWARD/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 Gender Identity Not on file Sexual Orientation Not on file 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 Not [...] Out COVID-19 02/03/2020 02/03/2020 02/04/2020 4:32 PM STEWARD/STEWARDESS CLUB CAR Rule Out COVID-12/12/2022 12/12/2022 12/12/2022 1:09 PM CDT COVID-19 12/12/2022 12/12/2022 01/02/2023 11:3 9 PM CDT Rule Out COVID-19 04/27/2024 04/27/2024 04/27/2024 8:24 PM STEWARD/STEWARDESS CLUB CAR Assessment Noted Time PHQ-9 Depression Total Score: 0 06/11/19 18 7:58 AM STEWARD/STEWARDESS CLUB CAR documented as of this encounter Care Teams Instrumentation Instructor Relationship Specialty Start Date End Date Edilberto Lopez MD [address] [place] [address] [id number] PCP - General 05/30/12 06/23/22 No Ref-Primary, Physician PCP - General 06/24/22 12/25/22 Theresa Carpio MD [address] [place] [address] PCP - General Family Medicine 12/26/22 04/26/24 Terence Smyth MD [place] [id number] [address] [place] [address] PCP - General Family Medicine 04/27/24 Edilberto Lopez MD [address] [place] [address] Assigned PCP 12/29/13 07/18/20 Alma Valencia, PT [address] [place] [address] 249335 Specialty Wind Commissioning Technician Physical Medicine and Rehabilitation 02/12/19 Leonor Draper MD [address] [place] [address] [id number] Physical Medicine and Rehabilitation 02/12/19 Jerri Fink, [place] [address] Specialty Wind Commissioning Technician Physical Medicine and Rehabilitation 02/12/19 Leonor Draper MD [facility] [address] [place], [place] [id number] Assigned Neuroscience Provider 01/24/20 06/12/21 Claude Amaro MD [address] [place], [place] 434356 Assigned OBGYN Provider 01/24/20 04/04/20 Theresa Carpio MD [address] [place], [place] 561266 Assigned Pain Medication Provider 01/14/23 04/26/23 Theresa Carpio MD [address] [place], [place] 277986 Assigned PCP 01/07/23 05/25/24 Paty Dacosta NP [address] [place] [address] 475756 Assigned Surgical Provider 01/07/23 02/03/23 Rahul Orourke MD [address] [place] [address] 292866 Assigned Surgical Provider 02/04/23 Bina Chen RECESSING MACHINE OPERATOR [address] [place] [address] Assigned PCP 05/26/24 documented as of this encounter
--- OUTSIDE RECORDS SUMMARY | 2024-06-14 15:30 | XMS_ITS | Encounter Summary ---
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 (significant other): [phone] Lazaro Tong (daughter): [phone] Laila Orourke (Mom): [phone] Upcoming Meetings and Dates/Important Information and next steps: None Cosigned by Twyla Vergara LMFT at 05/02/2024 8:30 AM DIRECTOR OF DEVELOPMENT AND MARKETING CTOR OF DEVELOPMENT AND MARKETING CTOR OF DEVELOPMENT AND MARKETING Associated attestation - Twyla Vergara LMFT - 05/02/2024 8:30 AM DIRECTOR OF DEVELOPMENT AND MARKETING Clinical Oncology Physician Assistant Attestation: I have reviewed and agree with the information in this note. Twyla Vergara MA, SHANTELLE Gas Shovel Operator Clinical Programs, Inpatient [facility] * Plan of Care - Adrienne Hernandez LPC - 05/01/2024 9:18 AM CST BEH IP Unit Acuity Rating Score (UARS) Patient is given one point for every criteria they meet. CRITERIA SCORING On a [address] hold, committed, stay of commitment, or revocation. 0 Patient LOS on BEH unit exceeds 20 days. 0 LOS: 2 Patient under guardianship, 55+, otherwise medically complex, or under age 11. 0 Suicide ideation without relief of precipitating factors. 1 Current plan for suicide. 0 Current plan for homicide. 0 Imminent risk or actual attempt to seriously harm another without relief of factors precipitating the attempt. 0 Severe dysfunction in daily living (ex: complete neglect for self care, extreme disruption in vegetative function, extreme deterioration in social interactions). 0 Recent (last 7 days) or current physical aggression in the ED or on unit. 0 Restraints or seclusion episode in past 72 hours. 0 Recent (last 7 days) or current verbal aggression, agitation, yelling, etc., while in the ED or unit. 0 Active psychosis. 0 Need for constant or near constant redirection (from leaving, from others, etc). 0 Intrusive or disruptive behaviors. 0 Patient requires 3 or more hours of individualized nursing care per 8-hour shift (i.e. for ADLs, meds, therapeutic interventions). 0 TOTAL 1 CTOR OF DEVELOPMENT AND MARKETING * Plan of Care - Koffi Beverly RN - 05/01/2024 6:52 AM CST Problem: Adult Behavioral Health Plan of Care Goal: Adheres to Safety Considerations for Self and Others Outcome: Progressing Problem: Depressive Signs/Symptoms Goal: Improved Sleep (Depressive Signs/Symptoms) Outcome: Progressing Pt slept through the night without distress. Pt reported no pain or discomfort. No problems with behavior. No concerns reported by pt. Pt slept 7 hours. Staff will continue to monitor. CTOR OF DEVELOPMENT AND MARKETING * Plan of Care - Juani Ivey RN - 04/30/2024 11:21 PM CST Mood and Affect:Patient describes mood as Hopeful. Affect is mostly flat but consistent with mood. LOC and Orientation:Alert. Oriented to person, place, time and situation. Behavior and Interaction: Patient is calm, cooperative and teary with nursing assessment. Patient is mostly withdrawn and isolative to self, occasionally visible in the milieu. Engaged withselect peers. Patient attended OT group. Mental Health Symptoms: Patient denies suicidal ideation or any other mental health symptoms at this time, reports feeling sad but not depressed. Medical Concerns:No new concerns. Other Concerns:Patient regrets attempting to end her life, describing it as Selfish act Patient draws support from from family. Patient encouraged to utilize positive coping skills. Medication Compliant: Patient is compliant with all scheduled medication. PRN: Ambien for sleep promotion. Medication Side Effects: Patient denies, not observed. Fluid & Food Intake: Adequate fluid and food intake. Bowel & Bladder/Elimination:Patient denies problems, last bowel movement was today. Self Care: Independent, well groomed. Vital Signs: Patient denies pain. BP (!) 134/91 Pulse 78 Temp 98.1 ??F (36.7 ??C) (Temporal) Resp 16 SpO2 96% Problem: Suicide Risk Goal: Absence of Self-Harm Outcome: Progressing Intervention: Assess Risk to Self and Maintain Safety Recent Flowsheet Documentation Taken 04/30/20242012 by Juani Ivey RN Behavior Management: behavioral plan reviewed Self-Harm Prevention: environmental self-harm risks assessed Enhanced Safety Measures: monitored by video Intervention: Promote Psychosocial Wellbeing Recent Flowsheet Documentation Taken 04/30/20242012 by Juani Ivey, RN Supportive Measures: decision-making supported positive reinforcement provided Sleep/Rest Enhancement: reading promoted family presence promoted Family/Support System Care: presence promoted self-care encouraged Intervention: Establish Safety Plan and Continuity of Care Recent Flowsheet Documentation Taken 04/30/20242012 by Juani Ivey, RN Safe Transition Promotion: protective factors promoted Problem: Depressive Signs/Symptoms Goal: Optimized Energy Level (Depressive Signs/Symptoms) Outcome: Progressing Intervention: Optimize Energy Level Recent Flowsheet Documentation Taken 04/30/20242008 by Juani Ivey, RN Patient Performed Hygiene: dressed Diversional Activity: music reading television structured exercise Activity (Behavioral Health): activity encouraged up ad celia Goal Outcome Evaluation: Plan of Care Reviewed With: patient CTOR OF DEVELOPMENT AND MARKETING * Plan of Care - Adrienne Hernandez LPC - 04/30/2024 4:05 PM CST 04/30/24 1559 Individualization/Patient Specific Goals Patient Personal Strengths independent living skills;positive vocational history;positive educational history Patient Vulnerabilities traumatic event;history of unsuccessful treatment;substance abuse/addiction Anxieties, Fears or Concerns Patient admitted due to suicide attempt. Patient has a hard time asking for help. Individualized Care Needs Medication management, individual therapy, group therapy and support fromunit support. Patient/Family-Specific Goals (Include Timeframe) Stabilize and discharge home. Interprofessional Rounds Summary Patient admitted due to suicide attempt. 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 Partner found her with bottle of pills and alcohol. Patient was on 72-hour hold but agreed to bevoluntary. Participants advanced practice nurse Behavioral Team Discussion Participants Taylor Ledesma APRN, CNP. Adrienne Hernandez LPC. Jake Cummins RN. Progress Patient is requesting therapy. Anticipated length of stay 2-4 days Continued Stay Criteria/Rationale Stabilization Medical/Physical None reported Precautions Suicide Plan Stabilize and discharge home with outpatient providers Rationale for change in precautions or plan No changes Safety Plan Safety plan to be completed by unit psychotherapist. Anticipated Discharge Disposition home or self-care Cosigned by Adrienne Ledesma APRN CNP at 05/01/2024 5:01 AM DIRECTOR OF DEVELOPMENT AND MARKETING CTOR OF DEVELOPMENT AND MARKETING CTOR OF DEVELOPMENT AND MARKETING Associated attestation - Adrienne Ledesma APRN CNP - 05/01/2024 5:01 AM DIRECTOR OF DEVELOPMENT AND MARKETING I agree with the information in this note and the plan of care. Adrienne Ledesma APRN, CNP * Plan of Care - Adrienne Hernandez LPC - 04/30/2024 3:58 PM CST INITIAL PSYCHOSOCIAL ASSESSMENT AND NOTE Information for assessment was obtained from: [x]Patient []Parent []Community provider [x]Hospital records []Other []Guardian Presenting Problem: Patient is a 48 year old female who uses she/her. Patient was admitted to [facility] on 04/29/2024 [facility] on a 72 hour hold placed on 04/29/2024 at 1716 . 72 hour hold canceled by Provider on 04/30/2024, patient is now voluntary. Presenting issues and presentation for admit: Suicide attempt. Per MAR Assessment 04/27/2024 Seema Lee presents to the ED with family/friends. Patient is presenting to the ED for the following concerns: Suicide attempt. Factors that make the mental health crisis life threatening or complex are: Seema Lee is a 48 year old female with a history of GERD, ADD, Migraines who presents with a drug overdose. The patient was in the lobby and family notified staff that the patients condition had rapidly declined and she needed to be seen. A family member reports the patient was having suicidal ideation last night. She had a financial bonus rescinded and is very upset about this, has been under a lot of stress. Patient had been having suicidal thoughts last night and the significant other took away all medications and locked them up. The family member reports he was going to take her to the hospital today for mental health checkup today. He reports he left the patient alone to take a shower for 15 min and then found an empty bottle of Nyquil and an empty bottle of liquor by the patient. He reports no illicit drugs or pain killers are at the home. He reports the only use prescribed medication. She is prescribed Adderall is at the home. She recently was prescribed Toradol and amoxicillin for her pelvic pain.er ED note, Pt brought in by for drug overdose, pt unresponsive in triage & given 0.4 mg of narcan in triage & brought back. is unaware of what she took, said it possibly was Nyquil. Said she was also drinking, but not sure how much. Said pt has been dealing with some mental health problems & life stressors lately. Pt is heavily sedated but responsive to painful stimuli after 1st dose of narcan. VSS, but tachy. The following areas have been assessed: History of Mental Health and Chemical Dependency: Mental Health History: Patient has a historical diagnosis of Depression. The patient has a history of suicide attempts. Patient took Nyquil and drank alcohol as a suicide attempt prior to current admission. Patient has not a history of engaged in non-suicidal self-injury. Previous psychiatric hospitalizations and treatments (including outpatient, residential, and inpatient care: [facility], [facility] [address]: 04/29/2024-present [facility] [place]: 04/27/2024 Her first attempt was to suffocate herself running her car in the garage but was found. Second attempt was overdosing by drinking a NyQuil bottle with suicidal purposes. Transferred to [facility]. Substance Use History Medical marijuana Alcohol Patient's current relationship status is partnered / significant other. Patient reported having 3 biological children and her partner has 5 children. She also took in her daughter's best friend when she was 14 years old. Family Description (Constellation, significant information and events, Family Psychiatric History): Patient says that her Father was a [place] vet and was an alcoholic due to the trauma from war. Shesays that anxiety and depression runs in her family like most families. Significant Medical issues, Life events or Trauma history: Patient was having severe cramping for months and went to the Doctor. She learned that she will have to have a hysterectomy. Living Situation: Patient's current living/housing situation is staying in own home/apartment. They live with partnerand they have their kids 50% of the time. They report that housing is stable and they are able to return upon discharge. 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 Patient reports they are able to understand written materials. 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 Patient reports income is obtained through employment. Patient does identify finances as a current stressor. They are self-pay. 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 Contextual influences on patient's health include severity of symptoms. Patient identified their preferred language to be Indian. Patient reported they do not need the assistance of an health consultant. Spiritual c onsiderations include: she says she is spiritual and not at all episcopal. Social Functioning (organizations, interests, support system): In their free time, patient reports they like to be in nature. In the winter she likes to bake. In the summer she likes to go hiking and likes to do photography. Patient identified partner, mother, siblings, adult child, and friends as part of their support system. Patient identified the quality of these relationships as stable and meaningful. Current Treatment Providers are: Primary Care Provider: Name/Clinic: Terence Smyth MD Number: Therapist: Name/Clinic: Needs referral Other contact information (family, friends, SO) and ELIDIA status: Nikolay Watts (significant other): [phone] Lazaro Tong (daughter): [phone] Laila Orourke (Mom): [phone] GOALS FOR HOSPITALIZATION: What do patient want to accomplish during this hospitalization to make things better for the patient.? Patient priorities: The patient reported that what is most important to them is trying to make the world a better place. They identified getting therapy in place as a goal of this hospitalization. Social Service Assessment/Plan: Patient view: Patient reports it is important for the care team to know not really. Upon discharge, they anticipate needing therapy appointments set up for them. Strengths and Assets: The patient uses these coping skills to help with stress and hard times: being in nature. In the warmer weather she likes to go hiking just to get out of the house. She also does a lot of deep breathing. In the winter she likes to bake. If she had a bakery she would call it Ugly Tasty because herbaking may not look good but it tastes good. Patient will have psychiatric assessment and medication management by the psychiatrist. Medicationswill be reviewed and adjusted per //RESERVE OFFICER HEALTH SAFETY COORDINATOR as indicated. The treatment team will continue to assess and stabilize the patient's mental health symptoms with the use of medications and therapeutic programming. Hospital staff will provide a safe environment and a therapeutic milieu. Staff will continue to assess patient as needed. Patient will participate in unit groups and activities. Patientwill receive individual and group support on the unit. CTC will do individual inpatient treatment planning and after care planning. CTC will discuss options for increasing community supports with the patient. CTC will coordinate with outpatient providersand will place referrals to ensure appropriate follow up care is in place. Cosigned by Twyla Vergara LMFT at 05/02/2024 8:30 AM DIRECTOR OF DEVELOPMENT AND MARKETING CTOR OF DEVELOPMENT AND MARKETING CTOR OF DEVELOPMENT AND MARKETING Associated attestation - Twyla Vergara LMFT - 05/02/2024 8:30 AM DIRECTOR OF DEVELOPMENT AND MARKETING Clinical Oncology Physician Assistant Attestation: I have reviewed and agree with the information in this note. Twyla Vergara MA, SHANTELLE Gas Shovel Operator Clinical Programs, [facility] * Plan of Care - RickeybrittaniQian, OTR - 04/30/2024 3:55 PM CST Rehab Group Start time: 14:00 End time: 14:45 Patient time total: 45 minutes attended full group #6 attended Group Type: occupational therapy Group Topic Covered: coping skills, healthy leisure time, and social skills Group Session Detail: Patient engaged in a cognitive-based leisure activity (I Know) with peers. Therapeutic benefits andskills addressed during today's leisure activity include: problem solving, promoting attention/focus, improving social skills, identification of healthy coping strategies, and exploring healthy leisure opportunities. Patient Response/Contribution: cooperative with task, socially appropriate, attentive, and activelyengaged Patient Detail: Patient arrived to this group on time. Upon arrival, patient expressed familiarity with game concepts and objectives. Throughout the group game, patient independently sequenced turn taking and did not require a repeat of instructions. When prompted to identify something that causes her stress at [facility], patient replied financial stress. On another occasion, patient was prompted to identify who she can talk to when she is stressed. In response to this prompt, patient identified her mother and partner as supportive people she can talk to and further noted there's a lot of people in her life that support her. Patient appeared to become somewhat flustered when discussing her job with group members as she described her job as being stressful. When asked how she jany with this stress, patient identified making sure I tie up loose ends at the end of the day. Affect appeared congruent withthe activity, however, somewhat guarded. Patient remained calm, pleasant, and cooperative throughout the duration of this group. [id number] OT Group (2 or more in attendance) Patient Active Problem List Diagnosis H/O combined form of nonsenile cataract GERD (gastroesophageal reflux disease) Asthma, mild intermittent Obesity Seasonal allergic rhinitis Dyslipidemia Intractable chronic migraine without aura and without status migrainosus ADD (attention deficit disorder) Medical marijuana use H/O bilateral breast reduction surgery Suicidal ideation Urinary retention Alcoholic intoxication without complication Anticholinergic drug overdose, intentional self-harm, initial encounter (H) Severe episode of recurrent major depressive disorder, without psychotic features (H) ROB (generalized anxiety disorder) Suicide attempt (H) CTOR OF DEVELOPMENT AND MARKETING * Plan of Care - Qian Lopez OTR - 04/30/2024 3:17 PM CST Rehab Group Start time: 13:15 End time: 14:00 Patient time total: 45 minutes attended full group #5 attended Group Type: OT Clinic Group Topic Covered: balanced lifestyle, coping skills, healthy leisure time, relaxation , and social skills Group Session Detail: Pt actively participated in occupational therapy clinic to facilitate coping skill exploration, creative expression within personally meaningful activities, and clinical observation of social, cognitive, and kinesthetic performance skills. Patient Response/Contribution: cooperative with task, organized, socially appropriate, and activelyengaged Patient Detail: Pt response: Patient arrived to this group on time and independently selected to complete a fuzzy color project. Patient was independent to initiate, gather materials, sequence, and adjust to workspace demands as needed. Demonstrated good focus, planning, and problem solving for selected fuzzy color task. When asked how she is doing with her project, patient replied alright and further described that she is color blind. Despite this, patient appeared to enjoy working on the coloring project. Patient engaged in appropriate social interactions while working on the selected task. Patient appeared to enjoy discussing her home town and where she grew up with another group member. Patient initiated and completed clean up of task supplies at the end of group. Affect appeared somewhat guarded, however, brightened during interactions. Patient remained calm, pleasant, and cooperative throughout time in the group. [id number] OT Group (2 or more in attendance) Patient Active Problem List Diagnosis H/O combined form of nonsenile cataract GERD (gastroesophageal reflux disease) Asthma, mild intermittent Obesity Seasonal allergic rhinitis Dyslipidemia Intractable chronic migraine without aura and without status migrainosus ADD (attention deficit disorder) Medical marijuana use H/O bilateral breast reduction surgery Suicidal ideation Urinary retention Alcoholic intoxication without complication Anticholinergic drug overdose, intentional self-harm, initial encounter (H) Severe episode of recurrent major depressive disorder, without psychotic features (H) ROB (generalized anxiety disorder) Suicide attempt (H) CTOR OF DEVELOPMENT AND MARKETING * Plan of Care - Edgar Woodard - 04/30/2024 12:31 PM CST Individual Therapy Note Date of Service: April 30, 2024 Patient: Seema goes by Seema, uses she/her pronouns Individuals Present: Seema & Edgar Woodard Session start: Time session began: 11:40 Session end: 12:30 Session duration in minutes: 50 Modality Used: CBT, Person Centered, Brief Therapy, and Solution Focused Goals: Challenge cognitive roadblocks by identifying their pathways and implementing a self-realizing model to counteract the roadblocks Patient Description of current symptoms: The patient reported feeling overwhelmed and stuck, due tonumerous issues ranging from divorce, blame from family, and business failures. Mental Status Exam: Attitude: cooperative Eye Contact: good Mood: anxious and depressed Affect: mood congruent Speech: clear, coherent Psychomotor Behavior: no evidence of tardive dyskinesia, dystonia, or tics Thought Process: logical Associations: no loose associations Thought Content: passive suicidal ideation present Insight: fair Judgement: limited Attention Span and Concentration: intact Pt progress: During this patient reported having difficulties seeing that she can succeed. Reportedthat life circumstances and shame have played significant roles in getting her to an uncomfortable place, and that she does not like to feel vulnerable and to address her worries with people due to trust issues. During this session, we addressed the road blocks she described and formulated a pathway which she described as a good capture of how she things and what keeps her stuck in those thinking. Also formulated concrete steps to take towards addressing the roadblocks and by addressing the identified issues, and using her support system. Pt reported that the session was quite helpful and requested to be recommended to a therapist outside of the hospital who will help her pursue the approaches discussed during this session. Treatment Objective(s) Addressed: The focus of this session was on identifying and practicing coping strategies, safety planning, assessing safety, identifying treatment goals, building self- esteem, and exploring obstacles to safety in the community Progress Towards Goals and Assessment of Patient: Patient is making progress towards treatment goals as evidenced by requested to meet again. Therapeutic Intervention(s): Provided active listening, unconditional positive regard, and validation. Engaged in safety planning identifying coping skills, warning signs, health support and resources, Explored barriers to effective follow up with tasks, Explored and identified early warning signs andtriggers to cognitive and affective decompensation, Engaged in cognitive restructuring/ reframing, looked at common cognitive distortions and challenged negative thoughts, Provided positive reinforcement for progress towards goals, gains in knowledge, and application of skills previously taught, Identified and practiced coping skills, Engaged in relaxation training (e.g. meditation, progressive muscle relaxation, etc.), Identified stress relief practices, Engaged in guided discovery, explored patient's perspectives and helped expand them through socratic dialogue, Engaged in activity scheduling and behavioral activation, looking at and reviewing the prior week's goals, problem solving any barriers and acknowledging successes, as well as setting new goals, Reviewed healthy living that supports positive mental health, including looking at sleep hygiene, regular movement, nutrition, and regular socialization, Taught the link between thoughts, feelings, and behaviors, Explored motivation for behavioral change, Introduced and explored accumulating positives, and Completed behavior chain a nalysis Plan/next step: Will meet with the pt as needed. Will inform the pillowcase cleaner regarding helping thepatient to secure a qualified psychotherapist who will help her to further explore her further her coping allowances. [id number] - Psychotherapy (with patient) - 45 (38-52*) min Patient Active Problem List Diagnosis H/O combined form of nonsenile cataract GERD (gastroesophageal reflux disease) Asthma, mild intermittent Obesity Seasonal allergic rhinitis Dyslipidemia Intractable chronic migraine without aura and without status migrainosus ADD (attention deficit disorder) Medical marijuana use H/O bilateral breast reduction surgery Suicidal ideation Urinary retention Alcoholic intoxication without complication Anticholinergic drug overdose, intentional self-harm, initial encounter (H) Severe episode of recurrent major depressive disorder, without psychotic features (H) ROB (generalized anxiety disorder) Suicide attempt (H) Mariusz Woodard, Ph.D., L.I.C.S.W CTOR OF DEVELOPMENT AND MARKETING CTOR OF DEVELOPMENT AND MARKETING * Plan of Care - Qian Lopez, OTR - 04/30/2024 11:56 AM CST Rehab Group Start time: 10:15 End time: 11:00 Patient time total: 45 minutes attended full group #9 attended Group Type: occupational therapy Group Topic Covered: healthy leisure time and social skills, self-expression, values identification Group Session Detail: Patient engaged in an interactive group focused on self identity. The therapeutic benefits of this Occupational Therapy group include promoting values exploration, identification of personal traits, and self-expression. Participants in this group were engaged in a group discussion pertaining to pers onal identity and values. After, participants were instructed to complete a personal identity crestand share final products with peers. Patient Response/Contribution: cooperative with task, socially appropriate, attentive, and worked intermittently Patient Detail: Patient Response: Patient arrived to the group on time. During the initial check-in patient shared that she notices that her mood changes somewhat depending on the weather and noted that she feels less energetic when it is cold out. Patient actively engaged in group discussions and listened actively to peer sharing. Patient demonstrated good focus and attention while working on her personal crest, however, worked for roughly twenty minutes and then opted to sit and observe peers. OT provided encouragement to patient to identify more items to add to her crest, however, patient elected to continue to observe peers. When sharing her personal crest with group members, patient described the tree she included on her crest as it represents her connection to nature and the seasons. Patient further described that she connects the seasons of nature to the seasons of life and noted that sometimes she goes through seasons where she needs more rest. Patient appeared to enjoy discussing her appreciation of nature and visiting her favorite waterfall by the [facility]. Affect appeared congruent with the activity, however, somewhat withdrawn to self. Patient remained calm and cooperative throughout the duration of this group. [id number] OT Group (2 or more in attendance) Patient Active Problem List Diagnosis H/O combined form of nonsenile cataract GERD (gastroesophageal reflux disease) Asthma, mild intermittent Obesity Seasonal allergic rhinitis Dyslipidemia Intractable chronic migraine without aura and without status migrainosus ADD (attention deficit disorder) Medical marijuana use H/O bilateral breast reduction surgery Suicidal ideation Urinary retention Alcoholic intoxication without complication Anticholinergic drug overdose, intentional self-harm, initial encounter (H) Severe episode of recurrent major depressive disorder, without psychotic features (H) ROB (generalized anxiety disorder) Suicide attempt (H) CTOR OF DEVELOPMENT AND MARKETING * Plan of Care - Jkae Cummins RN - 04/30/2024 10:13 AM CST Problem: Suicide Risk Goal: Absence of Self-Harm Outcome: Progressing Goal Outcome Evaluation: Pt was visible in the milieu. Presents as alert and oriented x4. Was withdrawn and isolative. Mood was sad and anxious. Was calm and cooperative. Pt attended both morning and afternoon OT groups. Pt took shower and changed clothes on this shift. Endorsed anxiety and depression rating at 7/10. Reported that stressors of life are the main triggers. A lot has been going on, thank God I'm not suicidal any more. Pt was teary during assessment. Pt requested PRN hydroxyzine for anxiety. Denies SI/HI. Denies AH/VH. Denies pain or discomfort. Ate and drank adequately. Was medication compliant. Pt ashley Augmentin for endometrial infection. No fever or any signs of infection noticed or reported on this shift. VSS. Admission profile was completed on this shift. CTOR OF DEVELOPMENT AND MARKETING * Plan of Care - Adrienne Hernandez LPC - 04/30/2024 9:57 AM CST Team Note Due: Monday Assessment/Intervention/Current Symtoms and Care Coordination: Chart review and met with team, discussed pt progress, symptomology, and response to treatment. Discussed the discharge plan and any potential impediments to discharge. 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 She has had several stressors including not receiving a bonus at work, a divorce from a shady ex who left her 600-700 K in debt. She has a supportive partner now. He reports he left the her alone to take a shower for 15 min and then found an empty bottle of Nyquil and an empty bottle of liquor by her. On the unit she says she is not suicidal. She requested therapy today and met with unit psychotherapist. Discharge Plan or Goal: Home with existing outpatient providers Barriers to Discharge: None Referral Status: None Legal Status: Voluntary Contacts (include ELIDIA status): Nikolay Watts (significant other): [phone] Laazro Tong (daughter): [phone] Laila Orourke (Mom): [phone] Upcoming Meetings and Dates/Important Information and next steps: None Cosigned by Twyla Vergara LMFT at 05/01/2024 10:42 AM DIRECTOR OF DEVELOPMENT AND MARKETING CTOR OF DEVELOPMENT AND MARKETING CTOR OF DEVELOPMENT AND MARKETING CTOR OF DEVELOPMENT AND MARKETING Associated attestation - Twyla Vergara LMFT - 05/01/2024 10:42 AM DIRECTOR OF DEVELOPMENT AND MARKETING Clinical Oncology Physician Assistant Attestation: I have reviewed and agree with the information in this note. Twyla Vergara MA, SHANTELLE Gas Shovel Operator Clinical Programs, Inpatient [facility] * Plan of Care - Adrienne Hernandez LPC - 04/30/2024 9:56 AM CST BEH IP Unit Acuity Rating Score (UARS) Patient is given one point for every criteria they meet. CRITERIA SCORING On a [address] hold, committed, stay of commitment, or revocation. 0 Patient LOS on BEH unit exceeds 20 days. 0 LOS: 1 Patient under guardianship, 55+, otherwise medically complex, or under age 11. 0 Suicide ideation without relief of precipitating factors. 1 Current plan for suicide. 0 Current plan for homicide. 0 Imminent risk or actual attempt to seriously harm another without relief of factors precipitating the attempt. 0 Severe dysfunction in daily living (ex: complete neglect for self care, extreme disruption in vegetative function, extreme deterioration in social interactions). 0 Recent (last 7 days) or current physical aggression in the ED or on unit. 0 Restraints or seclusion episode in past 72 hours. 0 Recent (last 7 days) or current verbal aggression, agitation, yelling, etc., while in the ED or unit. 0 Active psychosis. 0 Need for constant or near constant redirection (from leaving, from others, etc). 0 Intrusive or disruptive behaviors. 0 Patient requires 3 or more hours of individualized nursing care per 8-hour shift (i.e. for ADLs, meds, therapeutic interventions). 0 TOTAL 1 CTOR OF DEVELOPMENT AND MARKETING * Plan of Care - Philly Lobo RN - 04/30/2024 6:25 AM CST Problem: Sleep Disturbance Goal: Adequate Sleep/Rest Outcome: Progressing Goal Outcome Evaluation: Pt appears to be asleep. 15 minutes safety checks done throughout the night. Slept for a total of 6.75 hours. Requested and received Hydroxyzine 50 mg at 0121 for anxiety/sleep. Pt returned to her room. CTOR OF DEVELOPMENT AND MARKETING * Plan of Care - Akira Velasquez RN - 04/29/2024 9:57 PM CST Problem: Depressive Signs/Symptoms Goal: Optimized Energy Level (Depressive Signs/Symptoms) Outcome: Not Progressing Intervention: Optimize Energy Level Flowsheets (Taken 04/29/2024 2901) Activity (Behavioral Health): activity adjusted per tolerance Goal Outcome Evaluation: Admitted a 48 y/o female patient on 72 hour hold from [facility] ED due to Major Depressive Disorder w/suicide attempts, accompanied by medical transport per stretcher, ambulatory, body search done by two female staff, no contrabands found, vital signs taken and recorded, she contracted for safety on the unit. During intake assessments patient was very emotional , crying, sobbing, she expressed feeling very tired and wanted to go to bed. Patient was oriented to hospital unit and policies. Patient signed ELIDIA's for boyfriend, mother and daughter. Patient was given a copy of 72 hour hold. Patient refused dinner, she said I'm not hungry.. Patient rested in bed. Patient had a visit with her boyfriend that went well. Patient was compliant with scheduled medication. Patient took prn Ambien for sleep. Will continue to monitor. CTOR OF DEVELOPMENT AND MARKETING * Plan of Care - Rachel Albarran - 04/29/2024 5:35 PM CST Images from the original note were not included. Goal Outcome Evaluation: 04/29/24 [id number] Patient Belongings Did you bring any home meds/supplements to the hospital? No Belongings Search Yes Clothing Search Yes Second Staff Maeve VENTURA) In Locker: Slipper, Iphone , Staff Home Therapy Rn, Afua Butter cream, bag of starburst candy, hair brush,4 books, swimming coach tote bag,2 underwear, bra, 3 pair of socks, 2 pants, sweater, 3 shirts Sent to Security : N/A ..A Admission: I am responsible for any personal items that are not sent to the safe or pharmacy. [facility] is not responsible for loss, theft or damage of any property in my possession. Signature: Date: Time: Staff Signature: Date: Time: 2nd Staff person, if patient is unable/unwilling to sign: Signature: Date: Time: Discharge: [facility] has returned all of my personal belongings: Signature: Date: Time: Staff Signature: Date: Time: CTOR OF DEVELOPMENT AND MARKETING * Pharmacy-Admission Medication History - Ely Colindres RPH - 04/29/2024 5:25 PM CST Please see Admission Medication History note completed on 04/27 under previous encounter for information regarding prior to admission medications. Ely Colindres PharmD *[id number] CTOR OF DEVELOPMENT AND MARKETING documented in this encounter Plan of Treatment Scheduled Referrals Name Type Priority Associated Diagnoses Orde r Schedule Adult ENT Assistant Superintendent Referral Referral Routine: Next available opening Lesion of parotid gland Expected: 05/01/2024 (Approximate), Expires: 05/01/2025 documented as of this encounter Procedures Procedure Name Priority Date/Time Associated Diagnosis Comments TSH WITH FREE T4 REFLEX Routine 04/30/2024 7:51 AM DIRECTOR OF DEVELOPMENT AND MARKETING PHOSPHORUS Routine 04/30/2024 7:51 AM DIRECTOR OF DEVELOPMENT AND MARKETING LIPID PROFILE Routine 04/30/2024 7:51 AM DIRECTOR OF DEVELOPMENT AND MARKETING LACTIC ACID WHOLE BLOOD Routine 04/30/2024 7:51 AM DIRECTOR OF DEVELOPMENT AND MARKETING HEMOGLOBIN A1C Routine 04/30/2024 7:51 AM DIRECTOR OF DEVELOPMENT AND MARKETING COMPREHENSIVE METABOLIC PANEL Routine 04/30/2024 7:51 AM DIRECTOR OF DEVELOPMENT AND MARKETING documented in this encounter Results * Phosphorus (04/30/2024 7:51 AM DIRECTOR OF DEVELOPMENT AND MARKETING) Phosphorus 3.3 2.5 - 4.5 mg/dL 04/30/2024 8:40 AM DIRECTOR OF DEVELOPMENT AND MARKETING UR LAB[facility]ORY Blood BLOOD SPECIMEN / Unknown Venipuncture / Unknown 04/30/2024 7:51 AM DIRECTOR OF DEVELOPMENT AND MARKETING 04/30/2024 8:06 AM DIRECTOR OF DEVELOPMENT AND MARKETING Adrienne Ledesma APRN [facility] - BLOOD ORDER ADÁN Final Result UR LABORATORY [facility] [address] [place] [address], Room [place] [phone] [place] [address] * Lactic acid whole blood (04/30/2024 7:51 AM DIRECTOR OF DEVELOPMENT AND MARKETING) Lactic Acid 1.3 0.7 - 2.0 mmol/L 04/30/2024 8:06 AM DIRECTOR OF DEVELOPMENT AND MARKETING UR [facility] Blood BLOOD SPECIMEN / Unknown Venipuncture / Unknown 04/30/2024 7:51 AM DIRECTOR OF DEVELOPMENT AND MARKETING 04/30/2024 8:04 AM DIRECTOR OF DEVELOPMENT AND MARKETING Adrienne Ledesma APRN [facility] - BLOOD ORDER ADÁN Final Result Performing Organization Address City/[facility]/ZIP Co de Phone Number UR LABORATORY [facility] [address] [place] [address], Room [place] [phone] [place] [address] * TSH with free T4 reflex and/or T3 as indicated (04/30/2024 7:51 AM DIRECTOR OF DEVELOPMENT AND MARKETING) TSH 1.15 0.30 - 4.20 uIU/mL 04/30/2024 8:40 AM DIRECTOR OF DEVELOPMENT AND MARKETING UR [facility]ORY Blood BLOOD SPECIMEN / Unknown Venipuncture / Unknown 04/30/2024 7:51 AM DIRECTOR OF DEVELOPMENT AND MARKETING 04/30/2024 8:06 AM DIRECTOR OF DEVELOPMENT AND MARKETING us Adrienne Ledesma APRN [facility] - BLOOD ORDER ADÁN Final Result UR LABORATORY [facility] [address] [place] [address], Room [address] [phone] * (ABNORMAL) Lipid panel (04/30/2024 7:51 AM DIRECTOR OF DEVELOPMENT AND MARKETING) Cholesterol 238(H) <200 mg/dL 04/30/2024 8:40 AM DIRECTOR OF DEVELOPMENT AND MARKETING UR LAB[facility]ORY Triglycerides 245(H) <150 mg/dL 04/30/2024 8:40 AM DIRECTOR OF DEVELOPMENT AND MARKETING UR [facility] Direct Measure HDL 43(L) >=50 mg/dL 04/30/2024 8:40 AM DIRECTOR OF DEVELOPMENT AND MARKETING UR [facility] LDL Cholesterol Calculated 146(H) <100 mg/dL 04/30/2024 8:40 AM DIRECTOR OF DEVELOPMENT AND MARKETING UR LAB[facility] Non HDL Cholesterol 195(H) <130 mg/dL 04/30/2024 8:40 AM DIRECTOR OF DEVELOPMENT AND MARKETING UR [facility] Blood BLOOD SPECIMEN / Unknown Venipuncture / Unknown 04/30/2024 7:51 AM DIRECTOR OF DEVELOPMENT AND MARKETING 04/30/2024 8:06 AM DIRECTOR OF DEVELOPMENT AND MARKETING Narrative UR LABORATORY - 04/30/2024 8:40 AM DIRECTOR OF DEVELOPMENT AND MARKETING Cholesterol Desirable: < 200 mg/dL Borderline High: [...] 219 mg/dL Very High: >= 220 mg/dL us Adrienne Ledesma APRN HEALTH SAFETY COORDINATOR LAB - BLOOD ORDER ADÁN Final Result UR LABORATORY [facility] [address] [facility], [address] [place] [address], [facility] * Hemoglobin A1c (04/30/2024 7:51 AM DIRECTOR OF DEVELOPMENT AND MARKETING) Estimated Average Glucose 100 <117 mg/dL 04/30/2024 8:23 AM DIRECTOR OF DEVELOPMENT AND MARKETING UR LAB[facility]ATORY Hemoglobin A1C 5.1 <5.7 % 04/30/2024 8:23 AM DIRECTOR OF DEVELOPMENT AND MARKETING UR LAB[facility]ATORY Comment: Normal <5.7% Prediabetes 5.7-6.4% Diabetes 6.5% or higher Note: Adopted from ADA consensus guidelines. Blood BLOOD SPECIMEN / Unknown Venipuncture / Unknown 04/30/2024 7:51 AM DIRECTOR OF DEVELOPMENT AND MARKETING 04/30/2024 8:06 AM DIRECTOR OF DEVELOPMENT AND MARKETING Adrienne Ledesma APRN HEALTH SAFETY COORDINATOR LAB - BLOOD ORDER ADNÁ Final Result UR LABORATORY [facility] [address] [facility], [address] [place] [address] * Comprehensive metabolic panel (04/30/2024 7:51 AM DIRECTOR OF DEVELOPMENT AND MARKETING) Sodium 140 135 - 145 mmol/L 04/30/2024 8:40 AM DIRECTOR OF DEVELOPMENT AND MARKETING UR LAB[facility]ATORY Potassium 3.8 3.4 - 5.3 mmol/L 04/30/2024 8:40 AM DIRECTOR OF DEVELOPMENT AND MARKETING UR [facility] Carbon Dioxide (CO2) 24 22 - 29 mmol/L 04/30/2024 8:40 AM DIRECTOR OF DEVELOPMENT AND MARKETING UR [facility] Anion Gap 12 7 - 15 mmol/L 04/30/2024 8:40 AM DIRECTOR OF DEVELOPMENT AND MARKETING UR [facility] Urea Nitrogen 7.9 6.0 - 20.0 mg/dL 04/30/2024 8:40 AM DIRECTOR OF DEVELOPMENT AND MARKETING UR LAB[facility]ORY Creatinine 0.79 0.51 - 0.95 mg/dL 04/30/2024 8:40 AM DIRECTOR OF DEVELOPMENT AND MARKETING UR LAB[facility]ORY GFR Estimate >90 >60 mL/min/1.7 3m2 04/30/2024 8:40 AM DIRECTOR OF DEVELOPMENT AND MARKETING UR LAB[facility]ATORY Comment:eGFR calculated usin 2020 CKD-EPI equation. Calcium 9.8 8.8 - 10.4 mg/dL 04/30/2024 8:40 AM DIRECTOR OF DEVELOPMENT AND MARKETING UR LABORATORY Comment:Reference intervals for this test were updated on 10/17/2023 to reflect our healthy population more accurately. There may be differences in the flagging of prior results with similar values performed with this method. Those prior results can be interpreted in the context of the updated reference intervals. Chloride 104 98 - 107 mmol/L 04/30/2024 8:40 AM DIRECTOR OF DEVELOPMENT AND MARKETING UR [facility] Glucose 98 70 - 99 mg/dL 04/30/2024 8:40 AM DIRECTOR OF DEVELOPMENT AND MARKETING UR [facility] Alkaline Phosphatase 65 40 - 150 U/L 04/30/2024 8:40 AM DIRECTOR OF DEVELOPMENT AND MARKETING UR [facility] AST 20 0 - 45 U/L 04/30/2024 8:40 AM DIRECTOR OF DEVELOPMENT AND MARKETING UR [facility] ALT 20 0 - 50 U/L 04/30/2024 8:40 AM DIRECTOR OF DEVELOPMENT AND MARKETING UR [facility] Protein Total 7.4 6.4 - 8.3 g/dL 04/30/2024 8:40 AM DIRECTOR OF DEVELOPMENT AND MARKETING UR [facility] Albumin 4.4 3.5 - 5.2 g/dL 04/30/2024 8:40 AM DIRECTOR OF DEVELOPMENT AND MARKETING UR [facility] Bilirubin Total 0.7 <=1.2 mg/dL 04/30/2024 8:40 AM DIRECTOR OF DEVELOPMENT AND MARKETING UR [facility] Blood BLOOD SPECIMEN / Unknown Venipuncture / Unknown 04/30/2024 7:51 AM DIRECTOR OF DEVELOPMENT AND MARKETING 04/30/2024 8:06 AM DIRECTOR OF DEVELOPMENT AND MARKETING us Adrienne Ledesma RESERVE OFFICER HEALTH SAFETY COORDINATOR LAB - BLOOD ORDER ADÁN Final Result UR LABORATORY [facility] [address] [facility], [address] [place] [phone] documented in this encounter Visit Diagnoses Diagnosis Lesion of parotid gland- Primary Endometriosis Endometriosis, site unspecified Current severe 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 features, unspecified whether recurrent (H) ROB (generalized anxiety disorder) Generalized anxiety disorder Insomnia, unspecified type Suicide attempt (H) Suicide and self-inflicted injury by unspecified means documented in this encounter Administered Medications Inactive Administered Medications - up to 3 most recent administrations Medication Order MAR Action Action Date Dose Rate Site acetaminophen (TYLENOL) tablet 650 mg 650 mg, Oral, EVERY 4 HOURS PRN, mild pain, to moderate pain, Starting on Mon04/29/24 at 1716, Do not use if the patient has significant liver disease. MAX acetaminophen = 4000 mg/24 hrs. MAX acetaminophen LESS than 3000 mg/24 hrs for patients GREATER than or EQUAL to 65 years old. Maximum acetaminophen dose from all sources = 75 mg/kg/day not to exceed 4 grams/day. albuterol (PROVENTIL HFA/VENTOLIN HFA) inhaler 2 puff, Inhalation, EVERY 6 HOURS PRN, wheezing, Starting on Mon04/29/24 at 1716, Check the dose counter on the inhaler to ensure there are doses remaining before administering. Prime by spraying into the air 4 times prior to first use and if not used within 2 weeks. alum & mag hydroxide-simethicone (MAALOX) suspension 30 mL 30 mL, Oral, EVERY 4 HOURS PRN, indigestion, Starting on Mon04/29/24 at 1716, Shake well. amoxicillin-clavulanate (AUGMENTIN) 875-125 MG per tablet 1 tablet Routine, 1 tablet, Oral, 2 TIMES DAILY, First dose on Mon04/30/24 at 0830, For 10 doses, Indications: endometral infectionIndications:endometral infection $Given 05/02/2024 8:14 AM DIRECTOR OF DEVELOPMENT AND MARKETING 1 tablet $Given 05/01/2024 8:37 PM DIRECTOR OF DEVELOPMENT AND MARKETING 1 tablet $Given 05/01/2024 8:27 AM DIRECTOR OF DEVELOPMENT AND MARKETING 1 tablet amphetamine-dextroamphetamine (ADDERALL XR) ER cap 20 mg 20 mg, Oral, DAILY, First dose on Mon04/30/24 at 0830, DO NOT CRUSH. $Given 05/02/2024 8:13 AM DIRECTOR OF DEVELOPMENT AND MARKETING 20 mg $Given 05/01/2024 8:27 AM DIRECTOR OF DEVELOPMENT AND MARKETING 20 mg $Given 04/30/2024 9:05 AM DIRECTOR OF DEVELOPMENT AND MARKETING 20 mg buPROPion (WELLBUTRIN XL) 24 hr tablet 150 mg 150 mg, Oral, DAILY, First dose on Mon04/30/24 at 0800, DO NOT CRUSH. $Given 05/02/2024 8:13 AM DIRECTOR OF DEVELOPMENT AND MARKETING 150 mg $Given 05/01/2024 8:26 AM DIRECTOR OF DEVELOPMENT AND MARKETING 150 mg $Given 04/30/2024 8:36 AM DIRECTOR OF DEVELOPMENT AND MARKETING 150 mg cloNIDine (CATAPRES) tablet 0.1 mg 0.1 mg, Oral, EVERY 6 HOURS PRN, anxiety. First line treatment for anxiety. Hold for SBP < 100., Starting on Mon05/01/24 at 0742 $Given 05/01/2024 1:39 PM DIRECTOR OF DEVELOPMENT AND MARKETING 0.1 mg diphenhydrAMINE (BENADRYL) capsule 25 mg 25 mg, Oral, AT BEDTIME PRN, sleep, Second line treatment after Ambien., Starting on Mon04/30/24 at 1024 hydrOXYzine HCl (ATARAX) tablet 25-50 mg 25-50 mg, Oral, EVERY 4 HOURS PRN, anxiety, Second line treatment for anxiety., Starting on Mon05/01/24 at 0744, Administer only if there is no other oral medication ordered prn for anxiety. Consider discontinuing if another PRN is ordered for anxiety. $Given 05/02/2024 12:32 AM DIRECTOR OF DEVELOPMENT AND MARKETING 50 mg hydrOXYzine HCl (ATARAX) tablet 50 mg 50 mg, Oral, EVERY 4 HOURS PRN, anxiety, First line treatment, Starting on Mon04/29/24 at 1716, Administer only if there is no other oral medication ordered prn for anxiety. Consider discontinuing if another PRN is ordered for anxiety. $Given 04/30/2024 1:21 AM DIRECTOR OF DEVELOPMENT AND MARKETING 50 mg hydrOXYzine HCl (ATARAX) tablet 50 mg 50 mg, Oral, EVERY 4 HOURS PRN, anxiety, Starting on Mon04/30/24 at 0826, Administer only if there is no other oral medication ordered prn for anxiety. Consider discontinuing if another PRN is ordered for anxiety. $Given 04/30/2024 12:49 PM DIRECTOR OF DEVELOPMENT AND MARKETING 50 mg levothyroxine (SYNTHROID/LEVOTHROID) tablet 25 mcg 25 mcg, Oral, EVERY MORNING BEFORE BREAKFAST, First dose on Mon04/30/24 at 0730, Separate oral administration of iron- or calcium-containing products and levothyroxine by at least 4 hours. $Given 05/02/2024 8:14 AM DIRECTOR OF DEVELOPMENT AND MARKETING 25 mcg $Given 05/01/2024 8:27 AM DIRECTOR OF DEVELOPMENT AND MARKETING 25 mcg $Given 04/30/2024 8:36 AM DIRECTOR OF DEVELOPMENT AND MARKETING 25 mcg LORazepam (ATIVAN) tablet 0.5 mg 0.5 mg, Oral, EVERY 4 HOURS PRN, anxiety, panic attacks, Starting on Mon04/30/24 at 0826 medroxyPROGESTERone (PROVERA) tablet 20 mg 20 mg, Oral, 3 TIMES DAILY, First dose on Mon04/30/24 at 0830, For 15 doses $Given 05/02/2024 8:13 AM DIRECTOR OF DEVELOPMENT AND MARKETING 20 mg $Given 05/01/2024 8:37 PM DIRECTOR OF DEVELOPMENT AND MARKETING 20 mg $Given 05/01/2024 1:34 PM DIRECTOR OF DEVELOPMENT AND MARKETING 20 mg ondansetron (ZOFRAN ODT) ODT tab 4 mg 4 mg, Oral, EVERY 6 HOURS PRN, nausea, vomiting, Starting on Mon04/29/24 at 1716, With dry hands, peel back foil backing and gently remove tablet. Do not push oral disintegrating tablet through foil backing. Administer immediately on tongue and oral disintegrating tablet dissolves in seconds, then swallow with saliva. Liquid not required. prazosin (MINIPRESS) capsule 1 mg 1 mg, Oral, AT BEDTIME, First dose on Mon04/29/24 at 2200, Hold for SBP < 100 $Given 05/01/2024 8:37 PM DIRECTOR OF DEVELOPMENT AND MARKETING 1 mg $Given 04/30/2024 9:14 PM DIRECTOR OF DEVELOPMENT AND MARKETING 1 mg $Given 04/29/2024 7:58 PM DIRECTOR OF DEVELOPMENT AND MARKETING 1 mg senna-docusate (SENOKOT-S/PERICOLACE) 8.6-50 MG per tablet 1 tablet 1 tablet, Oral, 2 TIMES DAILY PRN, constipation, Starting on Mon04/29/24 at 1716, Hold for loose stools. zolpidem (AMBIEN) tablet 10 mg 10 mg, Oral, AT BEDTIME PRN, sleep, Starting on Mon04/29/24 at 1716 $Given 05/01/2024 8:41 PM DIRECTOR OF DEVELOPMENT AND MARKETING 10 mg $Given 04/30/2024 9:14 PM DIRECTOR OF DEVELOPMENT AND MARKETING 10 mg $Given 04/29/2024 8:13 PM DIRECTOR OF DEVELOPMENT AND MARKETING 10 mg documented in this encounter Active and Recently Administered Medications Times are shown in DIRECTOR OF DEVELOPMENT AND MARKETING. Scheduled Medication Order 04/30/2024 05/01/2024 05/02/2024 amoxicillin-clavulanate (AUGMENTIN) 875-125 MG per tablet 1 tablet Routine, 1 tablet, Oral, 2 TIMES DAILY, First dose on Mon04/30/24 at 0830, For 10 doses, Indications: endometral infection 09 ($Given - Provider: Jake Cummins RN)2113 ($Given - Provider: Juani Ivey RN) 826 ($Given - Provider: Jhonatan Carrasco RN)2036 ($Given - Provider: Fernando Oswald RN) 08 ($Given - Provider: Lizbet Parham RN) amphetamine-dextroamphet amine (ADDERALL XR) ER cap 20 mg 20 mg, Oral, DAILY, First dose on Mon04/30/24 at 0830, DO NOT CRUSH. 0905 ($Given - Provider: Jake Cummins RN) 0827 ($Given - Provider: Jhonatan Carrasco RN) 0813 ($Given - Provider: Lizbet Parham, ABIMBOLA) buPROPion (WELLBUTRIN XL) 24 hr tablet 150 mg 150 mg, Oral, DAILY, First dose on Mon04/30/24 at 0800, DO NOT CRUSH. 0836 ($Given - Provider: Jake Cummins RN) 0826 ($Given - Provider: Jhonatan Carrasco RN) 0813 ($Given - Provider: Lizbet Parham, ABIMBOLA) levothyroxine (SYNTHROID/LEVOTHROID) tablet 25 mcg 25 mcg, Oral, EVERY MORNING BEFORE BREAKFAST, First dose on Mon04/30/24 at 0730, Separate oral administration of iron- or calcium-containing products and levothyroxine by at least 4 hours. 0836 ($Given - Provider: Jake Cummins RN) 0827 ($Given - Provider: Jhonatan Carrasco RN) 0814 ($Given - Provider: Lizbet Parham RN) medroxyPROGESTERone (PROVERA) tablet 20 mg 20 mg, Oral, 3 TIMES DAILY, First dose on Mon04/30/24 at 0830, For 15 doses 0903 ($Given - Provider: Jake Cummins RN)1403 ($Given - Provider: Jake Cummins RN)2114 ($Given - Provider: Juani Ivey RN) 0826 ($Given - Provider: Jhonatan Carrasco RN)1334 ($Given - Provider: Jhonatan Carrasco RN)203 ($Given - Provider: Fernando Oswald, ABIMBOLA) 0813 ($Given - Provider: Lizbet Parham, ABIMBOLA)1400 (Canceled Entry - Provider: Orders Generic Provider - Comment: Automatically canceled at discontinue of medication order) prazosin (MINIPRESS) capsule 1 mg 1 mg, Oral, AT BEDTIME, First dose on Mon04/29/24 at 2200, Hold for SBP < 100 211 ($Given - Provider: Juani Ivey RN) 2036 ($Given - Provider: Fernando Oswald RN) PRN Medication Order 04/30/2024 05/01/2024 05/02/2024 acetaminophen (TYLENOL) tablet 650 mg 650 mg, Oral, EVERY 4 HOURS PRN, mild pain, to moderate pain, Starting on Mon04/29/24 at 1716, Do not use if the patient has significant liver disease. MAX acetaminophen = 4000 mg/24 hrs. MAX acetaminophen LESS than 3000 mg/24 hrs for patients GREATER than or EQUAL to 65 years old. Maximum acetaminophen dose from all sources = 75 mg/kg/day not to exceed 4 grams/day. albuterol (PROVENTIL HFA/VENTOLIN HFA) inhaler 2 puff, Inhalation, EVERY 6 HOURS PRN, wheezing, Starting on Mon04/29/24 at 1716, Check the dose counter on the inhaler to ensure there are doses remaining before administering. Prime by spraying into the air 4 times prior to first use and if not used within 2 weeks. alum & mag hydroxide-simethicone (MAALOX) suspension 30 mL 30 mL, Oral, EVERY 4 HOURS PRN, indigestion, Starting on Mon04/29/24 at 1716, Shake well. hdpmnfo-iacmneepzyiso-znr feine (EXCEDRIN MIGRAINE) per tablet 2 tablet 2 tablet, Oral, DAILY PRN, headaches, Starting on Mon04/30/24 at 0820, Each tablet contains 250 mg of acetaminophen cloNIDine (CATAPRES) tablet 0.1 mg 0.1 mg, Oral, EVERY 6 HOURS PRN, anxiety. First line treatment for anxiety. Hold for SBP < 100., Starting on Mon05/01/24 at 0742 1339 ($Given - Provider: Jhonatan Carrasco RN) diphenhydrAMINE (BENADRYL) capsule 25 mg 25 mg, Oral, AT BEDTIME PRN, sleep, Second line treatment after Ambien., Starting on Mon04/30/24 at 1024 hydrOXYzine HCl (ATARAX) tablet 25-50 mg 25-50 mg, Oral, EVERY 4 HOURS PRN, anxiety, Second line treatment for anxiety., Starting on Mon05/01/24 at 0744, Administer only if there is no other oral medication ordered prn for anxiety. Consider discontinuing if another PRN is ordered for anxiety. 0032 ($Given - Provider: Cha Mccabe RN - Comment: anxiety, sleep) hydrOXYzine HCl (ATARAX) tablet 50 mg (CANCELED) 50 mg, Oral, EVERY 4 HOURS PRN, anxiety, First line treatment, Starting on Mon04/29/24 at 1716, Administer only if there is no other oral medication ordered prn for anxiety. Consider discontinuing if another PRN is ordered for anxiety. 0121 ($Given - Provider: Philly Lobo RN) hydrOXYzine HCl (ATARAX) tablet 50 mg (CANCELED) 50 mg, Oral, EVERY 4 HOURS PRN, anxiety, Starting on Mon04/30/24 at 0826, Administer only if there is no other oral medication ordered prn for anxiety. Consider discontinuing if another PRN is ordered for anxiety. 1249 ($Given - Provider: Jake Cummins RN) LORazepam (ATIVAN) tablet 0.5 mg 0.5 mg, Oral, EVERY 4 HOURS PRN, anxiety, panic attacks, Starting on Mon04/30/24 at 0826 ondansetron (ZOFRAN ODT) ODT tab 4 mg 4 mg, Oral, EVERY 6 HOURS PRN, nausea, vomiting, Starting on Mon04/29/24 at 1716, With dry hands, peel back foil backing and gently remove tablet. Do not push oral disintegrating tablet through foil backing. Administer immediately on tongue and oral disintegrating tablet dissolves in seconds, then swallow with saliva. Liquid not required. senna-docusate (SENOKOT-S/PERICOLACE) 8.6-50 MG per tablet 1 tablet 1 tablet, Oral, 2 TIMES DAILY PRN, constipation, Starting on Mon04/29/24 at 1716, Hold for loose stools. zolpidem (AMBIEN) tablet 10 mg 10 mg, Oral, AT BEDTIME PRN, sleep, Starting on Mon04/29/24 at 1716 4 ($Given - Provider: Juani Ivey RN) 2040 ($Given - Provider: Fernando Oswald RN) documented in this encounter Additional Health Concerns Assessment Noted Time PHQ-9 Depression Total Score: 1 12/27/19 23 11:15 AM CDT documented as of this encounter Care Teams Director Of Kids Relationship Specialty Start Date End Date Terence Smyth MD [facility] [address] [address] PCP - General Family Medicine 04/27/24 Alma Valencia, PT [address] [place] [address] [address] [place], [place] [id number] Specialty Packager Hand Physical Medicine and Rehabilitation 02/12/19 Leonor Draper MD [address] [place] [address] [id number] Physical Medicine and Rehabilitation 02/12/19 Jerri Fink, ABIMBOLA RETIRED [place], [place] [id number] Specialty Packager Hand Physical Medicine and Rehabilitation 02/12/19 Theresa Carpio MD [address] [place] [address] [id number] Assigned PCP 01/07/23 05/25/24 Rahul Orourke MD [address] [place] [address] [id number] Assigned Surgical Provider 02/04/23 documented as of this encounter
--- OUTSIDE RECORDS SUMMARY | 2024-06-14 15:30 | XMS_ITS | Encounter Summary ---
Author Organization [facility] Address [address] [place] [id number] Care Team Providers Care Barrel Cap Setter Name Role Phone Alma Valencia Tyler PT Unavailable [phone] Leonor Draper MD Unavailable [phone] Jerri Fink RN Unavailable + [phone] Theresa Carpio MD Unavailable [phone] Rahul Orourke MD Unavailable [phone] Terence Smyth MD Primary Care Provider [phone] Bina Chen TAX ASSESSOR Unavailable [phone] Reason for Visit * Reason Onset Date Comments MH/CD Inpatient 04/29/2024 Encounter Details Date Type Department Care Team ([facility] Contact Info) Description 04/29/2024 Telephone [facility] Behavioral Health Intake [address] [place] [id number] Generic, Behavioral Intake, MD MH/CD Inpatient Social History Tobacco Use Types Packs/Day Years [...] in an abandoned building, in an overnight usp, or couch-surfing.) Yes 04/30/2024 Are you worried [...] on file 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 Gender Identity Not on file Sexual Orientation Not on file 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 Not on file Not on file documented as of this encounter Plan of Treatment Not on file documented as of this encounter Visit Diagnoses Not on filedocumented in this encounter Additional Health Concerns Assessment Noted Time PHQ-9 Depression Total Score: 1 12/27/19 23 11:15 AM CDT documented as of this encounter Care Teams Barrel Cap Setter Relationship Specialty Start Date End Date Terence Smyth MD [address] [id number] PCP - General Family Medicine 04/27/24 Alma Valencia, PT [address] [facility] [address] [place], [place] [phone] Specialty Insole Department Worker Physical Medicine and Rehabilitation 02/12/19 Leonor Draper MD [address] [place] [address] Physical Medicine and Rehabilitation 02/12/19 Jerri Fink RN RETIRED [place], [place] [phone] Specialty Insole Department Worker Physical Medicine and Rehabilitation 02/12/19 [place] [address] [place] [address] [id number] Assigned PCP 01/07/23 05/25/24 Rahul Orourke MD [address] [place] [address] [id number] Assigned Surgical Provider 02/04/23 Bina Chen TAX ASSESSOR [address] [place] [address] Assigned PCP 05/26/24 documented as of this encounter
--- OUTSIDE RECORDS SUMMARY | 2024-06-14 15:30 | XMS_ITS | Clinical Summary ---
Author Organization [facility] Address [address] [place] [address] Care Team Providers Care Seafood Clerk Name Role Phone Alma Valencia Tyler PT Unavailable [phone] Leonor Draper MD Unavailable [phone] Jerri Fink RN Unavailable + [phone] Rahul Orourke MD Unavailable [phone] Terence Smyth MD Primary Care Provider Bina Chen CAR BUILDER Unavailable [phone] Allergies Active Allergy Reactions Criticality Noted Date Comments Prochlorperazine Other (See Comments) 5 Seizure Promethazine Anaphylaxis High 08/08/2016 Not allergic to codiene Promethazine Hcl Other (See Comments) 3 Seizure Phenergan Medications aspirin-acetamino phen-caffeine (EXCEDRIN MIGRAINE) 250-250-65 MG per tablet Take 2 tablets by mouth as needed Active albuterol (PROAIR HFA/PROVENTIL HFA/VENTOLIN HFA) 108 (90 Base) MCG/ACT inhalerIndication s:Mild intermittent asthma without complication Inhale 2 puffs into the lungs every 6 hours as needed for shortness of breath, wheezing or cough 18 g 1 3 Active levothyroxine (SYNTHROID/LEVOTH ROID) 25 MCG tablet Take 25 mcg by mouth every morning (before breakfast). Active zolpidem (AMBIEN) 10 MG tablet Take 10 mg by mouth nightly as needed for sleep. Active amphetamine-dextr oamphetamine (ADDERALL XR) 20 MG 24 hr capsule Take 20 mg by mouth daily. Active clonazePAM (KLONOPIN) 0.5 MG tablet Take 0.5 mg by mouth 2 times daily as needed for anxiety. Active phentermine 30 MG capsule Take 30 mg by mouth every morning. Active prazosin (MINIPRESS) 1 MG capsule Take 1 mg by mouth at bedtime. Active ketorolac (TORADOL) 10 MG tabletIndications :Endometriosis Take 1 tablet (10 mg) by mouth every 6 hours as needed for moderate pain. Active amoxicillin-clavu lanate (AUGMENTIN) 875-125 MG tabletIndications :Endometriosis Take 1 tablet by mouth 2 times daily. Active medroxyPROGESTERo ne (PROVERA) 10 MG tabletIndications :Endometriosis Take 2 tablets (20 mg) by mouth 3 times daily. Active buPROPion (WELLBUTRIN XL) 300 MG 24 hr tabletIndications :Current severe 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 features, unspecified whether recurrent (H) Take 1 tablet (300 mg) by mouth daily. 30 tablet 1 Active diphenhydrAMINE (BENADRYL) 25 MG capsuleIndication s:Insomnia, unspecified type Take 1 capsule (25 mg) by mouth nightly as needed for sleep. Active hydrOXYzine HCl (ATARAX) 25 MG tabletIndications :ROB (generalized anxiety disorder) Take 1-2 tablets (25-50 mg) by mouth every 4 hours as needed for anxiety. 90 tablet 1 Active Active Problems Problem Noted Date Diagnosed [...] Department Care Team Description 04/29/2024 5:08 PM SPRINKLING SYSTEM INSTALLER - 05/02/2024 12:[address] [facility] Hospital Encounter [facility] [address] [place] [phone] Princess Ledesma MD Hartley, Alexandra, MD Lesion of parotid gland (Primary Dx); Endometriosis; Current severe 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 features, unspecified whether recurrent (H); ROB (generalized anxiety disorder); Insomnia, unspecified type Discharge Disposition: Home or Self Care 04/29/2024 Telephone [facility] Intake [address] [facility] [place] [phone] Generic, Behavioral IntakeMD MH/CD Inpatient 04/29/2024 Telephone [facility] Intake [address] [place] [phone] Generic, Behavioral IntakeMD 04/28/2024 Telephone [facility] Intake [address] [place] [phone] Generic, Behavioral IntakeMD 04/28/2024 Telephone [facility] Intake [address] [place] [phone] Generic, Behavioral IntakeMD MH/CD Inpatient 04/27/2024 8:56 AM SPRINKLING SYSTEM INSTALLER - 04/29/2024 4:32 PM SPRINKLING SYSTEM INSTALLER Hospital Encounter [place] [address] [facility] [address] [place] [phone] Taty Verdugo MD Jonkman, Tracy Dianne, MD Cabrera, Puma Curtis MD Suicidal ideation; Alcoholic intoxication without complication; Urinary retention; Anticholinergic drug overdose, intentional self-harm, initial encounter (H) Discharge Disposition: Psych[facility] Hospital with Planned Hospital IP Readmission 04/27/2024 Telephone [facility]al [facility] Intake [address] [place] [address] Generic, Behavioral Intake, from Last 3 Months Immunizations Name Administration Dates Next Due COVID-19 MONOVALENT 12+ (Pfizer) 05/21/2020,04/04 Flu, Unspecified 12/31/2011 [id number] Novel Flu- Nasal 01/23/2009 Influenza (H1N1) 01/23/2009 Influenza (IIV3) PF 04/01/2014, 1,03/25/2010,2008 Influenza Vaccine >6 months,quad, PF ,02/02/2018,01/11/2017,2015,02/13/2015,01/03/2013 Influenza, Whole Virus 02/06/2008,01/16/2007 MMR (MMRII) 09/21/2005 Meningococcal ACWY (Menactra ) 07/21/2011 Mumps [...] on file Legal Sex Female 1:27 AM SPRINKLING SYSTEM INSTALLER Gender Identity Not on file Sexual Orientation Not on file Occupation Industry Job Start Date Job End Date [employer] Not on file Not on file Not on file Last Filed Vital Signs Vital Sign Reading Time Taken Comments Blood Pressure 122/81 05/02/2024 8:00 AM SPRINKLING SYSTEM INSTALLER Pulse 95 05/02/2024 8:00 AM SPRINKLING SYSTEM INSTALLER Temperature 36.9 C (98.4 F) 05/02/2024 8:00 AM SPRINKLING SYSTEM INSTALLER Respiratory Rate 16 04/29/2024 6:43 PM SPRINKLING SYSTEM INSTALLER Oxygen Saturation 99% 05/02/2024 8:00 AM SPRINKLING SYSTEM INSTALLER Inhaled Oxygen Concentration - - Weight 71 kg (156 lb 9.6 oz) 04/27/2024 8:42 PM SPRINKLING SYSTEM INSTALLER Height 157.5 cm (5' 2) 04/27/2024 8:42 PM SPRINKLING SYSTEM INSTALLER Body Mass Index 28.64 04/27/2024 8:42 PM SPRINKLING SYSTEM INSTALLER Plan of Treatment Health Maintenance Due Date [...] this topic Medical Devices Implanted Type Area Care Taker Device Identifier Shelf Expiration Date Model / Serial / Lot Lens-Tecnis Multifocal 18.0 Implanted:Qty: 1 on 07/10/2012 by Inder Magdaleno MD at [facility] Left: Eye 03/11/2016 [id number] / [id number] / Procedures Procedure Name Priority Date/Time Associated Diagnosis Comments PHOSPHORUS Routine 04/30/2024 7:51 AM SPRINKLING SYSTEM INSTALLER LACTIC ACID WHOLE BLOOD Routine 04/30/2024 7:51 AM SPRINKLING SYSTEM INSTALLER TSH WITH FREE T4 REFLEX Routine 04/30/2024 7:51 AM SPRINKLING SYSTEM INSTALLER LIPID PROFILE Routine 04/30/2024 7:51 AM SPRINKLING SYSTEM INSTALLER HEMOGLOBIN A1C Routine 04/30/2024 7:51 AM SPRINKLING SYSTEM INSTALLER COMPREHENSIVE METABOLIC PANEL Routine 04/30/2024 7:51 AM SPRINKLING SYSTEM INSTALLER EXTRA PURPLE TOP EDTA (LAB USE ONLY) Routine 04/29/2024 6:22 AM SPRINKLING SYSTEM INSTALLER PHOSPHORUS Routine 04/29/2024 6:22 AM SPRINKLING SYSTEM INSTALLER MAGNESIUM Routine 04/29/2024 6:22 AM SPRINKLING SYSTEM INSTALLER POTASSIUM Routine 04/29/2024 6:22 AM SPRINKLING SYSTEM INSTALLER PHOSPHORUS Routine 04/28/2024 6:39 AM SPRINKLING SYSTEM INSTALLER MAGNESIUM Routine 04/28/2024 6:39 AM SPRINKLING SYSTEM INSTALLER CBC WITH PLATELETS Routine 04/28/2024 6: 39 AM SPRINKLING SYSTEM INSTALLER BASIC METABOLIC PANEL Routine 04/28/2024 6:39 AM SPRINKLING SYSTEM INSTALLER LACTIC ACID WHOLE BLOOD STAT 04/27/2024 7:51 PM SPRINKLING SYSTEM INSTALLER INFLUENZA A/B, RSV AND SARS-COV2 PCR STAT 04/27/2024 7:33 PM SPRINKLING SYSTEM INSTALLER EKG 12-LEAD, TRACING ONLY STAT 04/27/2024 6:49 PM SPRINKLING SYSTEM INSTALLER LACTIC ACID WHOLE BLOOD WITH 1X REPEAT IN 2 HR WHEN >2 STAT 04/27/2024 5:43 PM SPRINKLING SYSTEM INSTALLER PHOSPHORUS Add-On 04/27/2024 4:57 PM SPRINKLING SYSTEM INSTALLER MAGNESIUM Add-On 04/27/2024 4:57 PM SPRINKLING SYSTEM INSTALLER INR STAT 04/27/2024 4:57 PM SPRINKLING SYSTEM INSTALLER HEPATIC FUNCTION PANEL STAT 4:57 PM SPRINKLING SYSTEM INSTALLER ACETAMINOPHEN LEVEL STAT 04/27/2024 4 :57 PM SPRINKLING SYSTEM INSTALLER MR BRAIN W/O CONTRAST STAT 04/27/2024 4:[address] HEAD W/O CONTRAST STAT 04/27/2024 1:14 PM SPRINKLING SYSTEM INSTALLER LACTIC ACID WHOLE BLOOD STAT 04/27/2024 12:22 PM SPRINKLING SYSTEM INSTALLER INR STAT 04/27/2024 9:35 AM SPRINKLING SYSTEM INSTALLER URINE DRUG SCREEN STAT 04/27/2024 9:2 7 AM SPRINKLING SYSTEM INSTALLER URINE DRUG SCREEN PANEL STAT 04/27/2024 9:27 AM SPRINKLING SYSTEM INSTALLER XR CHEST PORT 1 VIEW STAT 04/27/2024 9:12 AM SPRINKLING SYSTEM INSTALLER GLUCOSE BY METER STAT 04/27/2024 9:08 AM SPRINKLING SYSTEM INSTALLER ISTAT GASES LACTATE VENOUS POCT STAT 04/27/2024 9:06 AM SPRINKLING SYSTEM INSTALLER CBC WITH PLATELETS & DIFFERENTIAL STAT 04/27/2024 9:03 AM SPRINKLING SYSTEM INSTALLER HEPATIC FUNCTION PANEL Add-On 9:03 AM SPRINKLING SYSTEM INSTALLER ETHYL ALCOHOL LEVEL STAT 04/27/2024 9 :03 AM SPRINKLING SYSTEM INSTALLER HCG QUALITATIVE STAT 04/27/2024 9:03 AM SPRINKLING SYSTEM INSTALLER ACETAMINOPHEN LEVEL STAT 04/27/2024 9 :03 AM SPRINKLING SYSTEM INSTALLER SALICYLATE LEVEL STAT 04/27/2024 9:03 AM SPRINKLING SYSTEM INSTALLER EXTRA RED TOP TUBE STAT 04/27/2024 9: 03 AM SPRINKLING SYSTEM INSTALLER CBC WITH PLATELETS AND DIFFERENTIAL STAT 04/27/2024 9:03 AM SPRINKLING SYSTEM INSTALLER EXTRA TUBE STAT 04/27/2024 9:03 AM SPRINKLING SYSTEM INSTALLER TROPONIN T, HIGH SENSITIVITY STAT 04/27/2024 9:03 AM SPRINKLING SYSTEM INSTALLER BASIC METABOLIC PANEL STAT 04/27/2024 9:03 AM SPRINKLING SYSTEM INSTALLER EKG 12-LEAD, TRACING ONLY STAT 04/27/2024 9:02 AM SPRINKLING SYSTEM INSTALLER EKG CARDIAC - HIM SCAN 12:00 AM SPRINKLING SYSTEM INSTALLER EKG CARDIAC - HIM SCAN 12:00 AM SPRINKLING SYSTEM INSTALLER EKG CARDIAC - HIM SCAN 5 12:00 AM SPRINKLING SYSTEM INSTALLER EKG CARDIAC - HIM SCAN 5 12:00 AM SPRINKLING SYSTEM INSTALLER MA DIAGNOSTIC BILATERAL W/ SIXTO Routine 12/29/2022 1:16 PM CDT Mass of upper outer quadrant of left breast A PAP THIN LAYER SCREEN Routine 09/14/2018 3:12 PM CDT Screening for cervical cancer HPV HIGH RISK TYPES DNA CERVICAL Routine 09/14/2018 3:12 PM CDT Screening for cervical cancer HEPATITIS C (HIM EXTERNAL RESULT) Routine 05/28/2018 2:31 PM SPRINKLING SYSTEM INSTALLER HIV ANTIGEN ANTIBODY COMBO Routine 05/28/2018 ASTHMA CONTROL TEST - HIM SCAN Routine 06/14/2016 1:45 PM CDT ASTHMA ACTION PLAN Routine 06/14/2016 9: 23 AM CDT from Last 3 Months or Most Recently Relevant to Health Maintenance Results * TSH with free T4 reflex and/or T3 as indicated (04/30/2024 7:51 AM SPRINKLING SYSTEM INSTALLER) TSH 1.15 0.30 - 4.20 uIU/mL 04/30/2024 8:40 AM SPRINKLING SYSTEM INSTALLER UR LAB[facility]ATORY Blood BLOOD SPECIMEN / Unknown Venipuncture / Unknown 04/30/2024 7:51 AM SPRINKLING SYSTEM INSTALLER 04/30/2024 8:06 AM SPRINKLING SYSTEM INSTALLER us Adrienne Ledesma APRN CAR BUILDER LAB - BLOOD ORDER ADÁN Final Result UR LABORATORY [facility] [address] [facility] [place] [address] * Phosphorus (04/30/2024 7:51 AM SPRINKLING SYSTEM INSTALLER) Only the most recent of4 resultswithin the time period is included. Phosphorus 3.3 2.5 - 4.5 mg/dL 04/30/2024 8:40 AM SPRINKLING SYSTEM INSTALLER UR LAB[facility]ATORY Blood BLOOD SPECIMEN / Unknown Venipuncture / Unknown 04/30/2024 7:51 AM SPRINKLING SYSTEM INSTALLER 04/30/2024 8:06 AM SPRINKLING SYSTEM INSTALLER Adrienne Ledesma APRN CAR BUILDER LAB - BLOOD ORDER ADÁN Final Result UR LABORATORY [facility] [address] [facility] [address] [facility] [place] [address] * (ABNORMAL) Lipid panel (04/30/2024 7:51 AM SPRINKLING SYSTEM INSTALLER) Cholesterol 238(H) <200 mg/dL 04/30/2024 8:40 AM SPRINKLING SYSTEM INSTALLER UR LABORATORY Triglycerides 245(H) <150 mg/dL 04/30/2024 8:40 AM SPRINKLING SYSTEM INSTALLER UR LAB[facility]ATORY Direct Measure HDL 43(L) >=50 mg/dL 04/30/2024 8:40 AM SPRINKLING SYSTEM INSTALLER UR LAB[facility]ATORY LDL Cholesterol Calculated 146(H) <100 mg/dL 04/30/2024 8:40 AM SPRINKLING SYSTEM INSTALLER UR LAB[facility]ATORY Non HDL Cholesterol 195(H) <130 mg/dL 04/30/2024 8:40 AM SPRINKLING SYSTEM INSTALLER UR LAB[facility]ATORY Blood BLOOD SPECIMEN / Unknown Venipuncture / Unknown 04/30/2024 7:51 AM SPRINKLING SYSTEM INSTALLER 04/30/2024 8:06 AM SPRINKLING SYSTEM INSTALLER Narrative UR LABORATORY - 04/30/2024 8:40 AM SPRINKLING SYSTEM INSTALLER Cholesterol Desirable: < 200 mg/dL Borderline High: [...] BLOOD ORDER ADÁN Final Result UR LABORATORY [facility] Lab [address] [place] [address], Room [address] [phone] * Lactic acid whole blood (04/30/2024 7:51 AM SPRINKLING SYSTEM INSTALLER) Only the most recent of3 resultswithin the time period is included. Pathologist [facility] Lactic Acid 1.3 0.7 - 2.0 mmol/L 04/30/2024 8:06 AM SPRINKLING SYSTEM INSTALLER UR LABORATORY Blood BLOOD SPECIMEN / Unknown Venipuncture / Unknown 04/30/2024 7:51 AM SPRINKLING SYSTEM INSTALLER 04/30/2024 8:04 AM SPRINKLING SYSTEM INSTALLER us Adrienne Ledesma APRN, CNP LAB - BLOOD ORDER ADÁN Final Result Performing Organization Address City/[facility]/ZIP Co de Phone Number UR LABORATORY [facility] Lab [address] [place] [address], Room [address] [phone] * Hemoglobin A1c (04/30/2024 7:51 AM SPRINKLING SYSTEM INSTALLER) [facility] Estimated Average Glucose 100 <117 mg/dL 04/30/2024 8:23 AM SPRINKLING SYSTEM INSTALLER UR LABORATORY Hemoglobin A1C 5.1 <5.7 % 04/30/2024 8:23 AM SPRINKLING SYSTEM INSTALLER UR LABORATORY Comment: Normal <5.7% Prediabetes 5.7-6.4% Diabetes 6.5% or higher Note: Adopted from ADA consensus guidelines. Blood BLOOD SPECIMEN / Unknown Venipuncture / Unknown 04/30/2024 7:51 AM SPRINKLING SYSTEM INSTALLER 04/30/2024 8:06 AM SPRINKLING SYSTEM INSTALLER us Adrienne Ledesma APRN, CNP LAB - BLOOD ORDER ADÁN Final Result UR LABORATORY [facility] [address] [place] [address], [address] [phone] * Comprehensive metabolic panel (04/30/2024 7:51 AM SPRINKLING SYSTEM INSTALLER) Sodium 140 135 - 145 mmol/L 04/30/2024 8:40 AM SPRINKLING SYSTEM INSTALLER UR LABORATORY Potassium 3.8 3.4 - 5.3 mmol/L 04/30/2024 8:40 AM SPRINKLING SYSTEM INSTALLER UR LAB[facility]ATORY Carbon Dioxide (CO2) 24 22 - 29 mmol/L 04/30/2024 8:40 AM SPRINKLING SYSTEM INSTALLER UR LAB[facility]ORY Anion Gap 12 7 - 15 mmol/L 04/30/2024 8:40 AM SPRINKLING SYSTEM INSTALLER UR LAB[facility]ATORY Urea Nitrogen 7.9 6.0 - 20.0 mg/dL 04/30/2024 8:40 AM SPRINKLING SYSTEM INSTALLER UR LAB[facility]ATORY Creatinine 0.79 0.51 - 0.95 mg/dL 04/30/2024 8:40 AM SPRINKLING SYSTEM INSTALLER UR LABORATORY GFR Estimate >90 >60 mL/min/1.7 3m2 04/30/2024 8:40 AM SPRINKLING SYSTEM INSTALLER UR LABORATORY Comment:eGFR calculated usin 2020 CKD-EPI equation. Calcium 9.8 8.8 - 10.4 mg/dL 04/30/2024 8:40 AM SPRINKLING SYSTEM INSTALLER UR LABORATORY Comment:Reference intervals for this test were updated on 10/17/2023 to reflect our healthy population more accurately. There may be differences in the flagging of prior results with similar values performed with this method. Those prior results can be interpreted in the context of the updated reference intervals. Chloride 104 98 - 107 mmol/L 04/30/2024 8:40 AM SPRINKLING SYSTEM INSTALLER UR LABORATORY Glucose 98 70 - 99 mg/dL 04/30/2024 8:40 AM SPRINKLING SYSTEM INSTALLER UR LAB[facility]ATORY Alkaline Phosphatase 65 40 - 150 U/L 04/30/2024 8:40 AM SPRINKLING SYSTEM INSTALLER UR LAB[facility]ATORY AST 20 0 - 45 U/L 04/30/2024 8:40 AM SPRINKLING SYSTEM INSTALLER UR LAB[facility]ATORY ALT 20 0 - 50 U/L 04/30/2024 8:40 AM SPRINKLING SYSTEM INSTALLER UR LAB[facility]ATORY Protein Total 7.4 6.4 - 8.3 g/dL 04/30/2024 8:40 AM SPRINKLING SYSTEM INSTALLER UR LABORATORY Albumin 4.4 3.5 - 5.2 g/dL 04/30/2024 8:40 AM SPRINKLING SYSTEM INSTALLER UR LABORATORY Bilirubin Total 0.7 <=1.2 mg/dL 04/30/2024 8:40 AM SPRINKLING SYSTEM INSTALLER UR LAB[facility]ATORY Blood BLOOD SPECIMEN / Unknown Venipuncture / Unknown 04/30/2024 7:51 AM SPRINKLING SYSTEM INSTALLER 04/30/2024 8:06 AM SPRINKLING SYSTEM INSTALLER us Adrienne Ledesma APRN, CNP LAB - BLOOD ORDER ADÁN Final Result LABORATORY [facility] Acute Care Lab [address] [facility] [facility] [place] [address] * Extra Purple Top EDTA (LAB USE ONLY) (04/29/2024 6:22 AM SPRINKLING SYSTEM INSTALLER) Hold Specimen JIC 04/29/2024 7:46 AM SPRINKLING SYSTEM INSTALLER LABORATORY Blood STRUCTURE OF RIGHT HAND / Unknown Venipuncture / Unknown 04/29/2024 6:22 AM SPRINKLING SYSTEM INSTALLER 04/29/2024 6:40 AM SPRINKLING SYSTEM INSTALLER us Puma Rodriges MD LAB - BLOOD ORDERABLES Final Result [facility] Acute Care Lab [address] Lab (1st floor, no room number) [place] [phone] * Potassium (04/29/2024 6:22 AM SPRINKLING SYSTEM INSTALLER) Potassium 3.6 3.4 - 5.3 mmol/L 04/29/2024 7:03 AM SPRINKLING SYSTEM INSTALLER LABORATORY Blood STRUCTURE OF RIGHT HAND / Unknown Venipuncture / Unknown 04/29/2024 6:22 AM SPRINKLING SYSTEM INSTALLER 04/29/2024 6:40 AM SPRINKLING SYSTEM INSTALLER us Jose Leal MD LAB - BLOOD ORDERA BLES Final Result [facility] Acute Care Lab [address] Lab (1st floor, no room number) [place] [phone] * Magnesium (04/29/2024 6:22 AM SPRINKLING SYSTEM INSTALLER) Only the most recent of3 resultswithin the time period is included. Magnesium 1.8 1.7 - 2.3 mg/dL 04/29/2024 7:03 AM [facility] LABORATORY Blood STRUCTURE OF RIGHT HAND / Unknown Venipuncture / Unknown 04/29/2024 6:22 AM SPRINKLING SYSTEM INSTALLER 04/29/2024 6:40 AM SPRINKLING SYSTEM INSTALLER Jose Leal MD LAB - BLOOD ORDERA BLES Final Result LABORATORY [facility] Acute Care Lab [address] Lab (1st floor, no room number) [place] [address] * (ABNORMAL) Basic metabolic panel (04/28/2024 6:39 AM SPRINKLING SYSTEM INSTALLER) Only the most recent of2 resultswithin the time period is included. Sodium 139 135 - 145 mmol/L 04/28/2024 7:33 AM [facility] LABORATORY Potassium 3.6 3.4 - 5.3 mmol/L 04/28/2024 7:33 AM [facility] LAB[facility] Chloride 104 98 - 107 mmol/L 04/28/2024 7:33 AM [facility] Carbon Dioxide (CO2) 21(L) 22 - 29 mmol/L 04/28/2024 7:33 AM [facility] LAB[facility] Anion Gap 14 7 - 15 mmol/L 04/28/2024 7:33 AM [facility] Urea Nitrogen 12.0 6.0 - 20.0 mg/dL 04/28/2024 7:33 AM [facility] Creatinine 0.89 0.51 - 0.95 mg/dL 04/28/2024 7:33 AM [facility] LAB[facility] GFR Estimate 79 >60 mL/min/1.7 3m2 04/28/2024 7:33 AM [facility] LAB[facility] Comment:eGFR calculated us2020 CKD-EPI equation. Calcium 8.9 8.8 - 10.4 mg/dL 04/28/2024 7:33 AM [facility] LAB[facility] Comment:Reference intervals for this test were updated on 10/17/2023 to reflect our healthy population more accurately. There may be differences in the flagging of prior results with similar values performed with this method. Those prior results can be interpreted in the context of the updated reference intervals. Glucose 80 70 - 99 mg/dL 04/28/2024 7:33 AM SPRINKLING SYSTEM INSTALLER [facility] LAB[facility] Blood STRUCTURE OF RIGHT UPPER LIMB / Unknown Venipuncture / Unknown 04/28/2024 6:39 AM SPRINKLING SYSTEM INSTALLER 04/28/2024 7:07 AM SPRINKLING SYSTEM INSTALLER us Puma Rodriges MD LAB - BLOOD ORDERABLES Final Result [facility] LABORATORY [facility] Acute Care Lab [address] Lab (1st floor, no room number) [place] [address] * CBC with platelets (04/28/2024 6:39 AM SPRINKLING SYSTEM INSTALLER) WBC Count 10.9 4.0 - 11.0 10e3/uL 04/28/2024 7:38 AM SPRINKLING SYSTEM INSTALLER [facility] RBC Count 3.98 3.80 - 5.20 10e6/uL 04/28/2024 7:38 AM SPRINKLING SYSTEM INSTALLER [facility] Hemoglobin 12.4 11.7 - 15.7 g/dL 04/28/2024 7:38 AM SPRINKLING SYSTEM INSTALLER [facility] Hematocrit 36.0 35.0 - 47.0 % 04/28/2024 7:38 AM SPRINKLING SYSTEM INSTALLER [facility] MCV 91 78 - 100 fL 04/28/2024 7:38 AM SPRINKLING SYSTEM INSTALLER [facility] MCH 31.2 26.5 - 33.0 pg 04/28/2024 7:38 AM SPRINKLING SYSTEM INSTALLER [facility] MCHC 34.4 31.5 - 36.5 g/dL 04/28/2024 7:38 AM SPRINKLING SYSTEM INSTALLER [facility] RDW 12.0 10.0 - 15.0 % 04/28/2024 7:38 AM SPRINKLING SYSTEM INSTALLER [facility] Platelet Count 262 150 - 450 10e3/uL 04/28/2024 7:38 AM SPRINKLING SYSTEM INSTALLER [facility] Blood STRUCTURE OF RIGHT UPPER LIMB / Unknown Venipuncture / Unknown 04/28/2024 6:39 AM SPRINKLING SYSTEM INSTALLER 04/28/2024 7:07 AM SPRINKLING SYSTEM INSTALLER us Puma Rodriges MD LAB - BLOOD ORDERABLES Final Result [facility] LABORATORY [facility] Acute Care Lab [address] Lab (1st floor, no room number) [place] [address] * Influenza A/B, RSV and SARS-CoV2 PCR (COVID-19) Nasopharyngeal (04/27/2024 7:33 PM SPRINKLING SYSTEM INSTALLER) Influenza A PCR Negative Negative 04/27/2024 8:24 PM SPRINKLING SYSTEM INSTALLER [facility] Influenza B PCR Negative Negative 04/27/2024 8:24 PM SPRINKLING SYSTEM INSTALLER [facility] RSV PCR Negative Negative 04/27/2024 8:24 PM SPRINKLING SYSTEM INSTALLER [facility] SARS CoV2 PCR Negative Negative 04/27/2024 8:24 PM SPRINKLING SYSTEM INSTALLER [facility] Comment:NEGATIVE: SARS-CoV-2 (COVID-19) RNA not detected, presumed negative. Swab NASOPHARYNGEAL STRUCTURE / Unknown Non-blood Collection / Unknown 04/27/2024 7:33 PM SPRINKLING SYSTEM INSTALLER 04/27/2024 7:37 PM SPRINKLING SYSTEM INSTALLER [facility] LABORATORY - 04/27/2024 8:24 PM SPRINKLING SYSTEM INSTALLER Testing was performed using the Xpert Xpress CoV2/Flu/RSV Assay on the Outlisten GeneXpert Instrument. This test should be ordered [...] management. This test was validated by the [facility] [address] [employer]. These laboratories are certified under the Clinical Laboratory Improvement Amendments of 1988 (CLIA-88) as qualified to perfom high complexity laboratory testing. us Puma Rodriges MD LAB - MICRO GENERAL ORDERABLE S Final Result LABORATORY [facility] Acute Care Lab [address] Lab (1st floor, no room number) [place] [address], [facility] * EKG 12 lead (04/27/2024 6:49 PM SPRINKLING SYSTEM INSTALLER) Only the most recent of2 resultswithin the time period is included. Systolic Blood Pressure mmHg RADIOLOGY RESULTS Diastolic Blood Pressure mmHg RADIOLOGY RESULTS Ventricular Rate 83 BPM RAD IOLOGY RESULTS Atrial Rate 83 BPM RADIOLOG Y RESULTS OR Interval 162 ms RADIOLOG Y RESULTS QRS Duration 74 ms RADIOLO GY RESULTS QT 388 ms RADIOLOGY RESULTS QTc 455 ms RADIOLOGY RESULTS P [place] 63 degrees RADIOLOGY RESULTS R AXIS -3 degrees RADIOLOGY RESULTS T [place] -7 degrees RADIOLOGY RESULTS Interpretation ECG Sinus rhythm Nonspecific T wave abnormality Abnormal ECG When compared with ECG of 27-Apr-2024 09:02, (unconfirmed) No significant change was found Unconfirmed report - interpretation of this ECG is computer generated - see medical record for final interpretation Confirmed by - EMERGENCY ROOM, PHYSICIAN ([id number]), television news video editor MALIK MCFADDEN ([id number]) on 04/29/2024 7:08:57 AM RADIOLOGY RESULTS 04/27/2024 6:49 PM SPRINKLING SYSTEM INSTALLER 04/29/2024 7:08 AM SPRINKLING SYSTEM INSTALLER us Taty Verdugo MD ECG ORDERABLES Edited R esult - Final RADIOLOGY RESULTS * (ABNORMAL) Lactic Acid Whole Blood with 1X Repeat in 2 HR when >2 (04/27/2024 5:43 PM SPRINKLING SYSTEM INSTALLER) Lactic Acid, Initial 3.3(H) 0.7 - 2.0 mmol/L 04/27/2024 6:06 PM SPRINKLING SYSTEM INSTALLER LABORATORY Blood STRUCTURE OF LEFT UPPER LIMB / Unknown Venipuncture / Unknown 04/27/2024 5:43 PM SPRINKLING SYSTEM INSTALLER 04/27/2024 5:48 PM SPRINKLING SYSTEM INSTALLER Linda Phillips MD LAB - BLOOD ORDERABLES F inal Result RH LABORATORY [facility] [address] Lab (1st floor, no room number) [place] [address], [facility] * INR (04/27/2024 4:57 PM SPRINKLING SYSTEM INSTALLER) Only the most recent of2 resultswithin the time period is included. INR 1.03 0.85 - 1.15 04/27/2024 5:32 PM SPRINKLING SYSTEM INSTALLER [facility] LABORATORY Blood BLOOD SPECIMEN / Unknown Venipuncture / Unknown 04/27/2024 4:57 PM SPRINKLING SYSTEM INSTALLER 04/27/2024 5:15 PM SPRINKLING SYSTEM INSTALLER Taty Verdugo MD LAB - BLOOD ORDERABLES F inal Result LABORATORY [facility] Lab [address] Lab (1st floor, no room number) [place] [address] * Hepatic panel (04/27/2024 4:57 PM SPRINKLING SYSTEM INSTALLER) Only the most recent of2 resultswithin the time period is included. Protein Total 7.5 6.4 - 8.3 g/dL 04/27/2024 5:53 PM SPRINKLING SYSTEM INSTALLER [facility] LABORATORY Albumin 4.6 3.5 - 5.2 g/dL 04/27/2024 5:53 PM SPRINKLING SYSTEM INSTALLER [facility] LABORATORY Bilirubin Total 0.3 <=1.2 mg/dL 04/27/2024 5:53 PM SPRINKLING SYSTEM INSTALLER [facility] LABORATORY Alkaline Phosphatase 69 40 - 150 U/L 04/27/2024 5:53 PM SPRINKLING SYSTEM INSTALLER [facility] LABORATORY AST 21 0 - 45 U/L 04/27/2024 5:53 PM SPRINKLING SYSTEM INSTALLER LABORATORY ALT 18 0 - 50 U/L 04/27/2024 5:53 PM SPRINKLING SYSTEM INSTALLER LABORATORY Bilirubin Direct <0.20 0.00 - 0.30 mg/dL 04/27/2024 5:53 PM SPRINKLING SYSTEM INSTALLER [facility] LABORATORY Blood BLOOD SPECIMEN / Unknown Venipuncture / Unknown 04/27/2024 4:57 PM SPRINKLING SYSTEM INSTALLER 04/27/2024 5:15 PM SPRINKLING SYSTEM INSTALLER Taty Verdugo MD LAB - BLOOD ORDERABLES F inal Result LABORATORY [facility] [address] Lab (1st floor, no room number) [place] [address] * (ABNORMAL) Acetaminophen level (04/27/2024 4:57 PM SPRINKLING SYSTEM INSTALLER) Only the most recent of2 resultswithin the time period is included. Acetaminophen <5.0(L) 10.0 - 30.0 ug/mL 04/27/2024 6:22 PM SPRINKLING SYSTEM INSTALLER LABORATORY Blood BLOOD SPECIMEN / Unknown Venipuncture / Unknown 04/27/2024 4:57 PM SPRINKLING SYSTEM INSTALLER 04/27/2024 5:15 PM SPRINKLING SYSTEM INSTALLER us Taty Verdugo MD LAB - BLOOD ORDERABLES F inal Result [facility] Acute Care Lab [address] Lab (1st floor, no room number) [place] [address] * MR Brain w/o Contrast (04/27/2024 4:14 PM SPRINKLING SYSTEM INSTALLER) Anatomical Region Laterality Modality Head, SUBRAD MR NEURO, UMP MR NEURO, RAD MR Magnetic Resonance 04/27/2024 4:14 PM SPRINKLING SYSTEM INSTALLER Impressions 04/27/2024 4:25 PM SPRINKLING SYSTEM INSTALLER IMPRESSION: 1. Negative for acute intracranial abnormality. 2. Nonspecific 1 cm T2 hyperintense left parotid nodule. Recommend further evaluation with nonemergent ENT consultation. Narrative 04/27/2024 4:25 PM SPRINKLING SYSTEM INSTALLER EXAM: MR BRAIN W/O CONTRAST LOCATION: [facility] DATE: 04/27/2024 INDICATION: possible cerebral edema on [...] middle ear or mastoid effusion. Procedure Note Edilbreto Orourke MD - 04/27/2024 EXAM: MR BRAIN W/O CONTRAST LOCATION: [facility] DATE: 04/27/2024 INDICATION: possible cerebral edema on [...] flow voids are maintained. Nonspecific 1 cm [id number] nodule at the deep lobe of left parotid gland. ORBITS: No abnormality accounting for technique. SINUSES/MASTOIDS: No paranasal sinus mucosal disease. No middle ear ormastoid effusion. IMPRESSION: 1. Negative for acute intracranial abnormality. 2. Nonspecific 1 cm T2 hyperintense left parotid nodule. Recommendfurther evaluation with nonemergent ENT consultation. Taty Verdugo MD [facility] MRI ORDERABLES Final Result * Head CT w/o contrast (04/27/2024 1:14 PM SPRINKLING SYSTEM INSTALLER) Anatomical Region Laterality Modality Head, SUBRAD CT NEURO, SUBRA D CT NEURO, UMP CT NEURO, RAD CT Computed Tomography 04/27/2024 1:14 PM SPRINKLING SYSTEM INSTALLER Addenda Addendum by Jaspreet Hankins MD on 04/27/2024 1:45 PM SPRINKLING SYSTEM INSTALLER Findings were discussed with Dr. Verdugo by Dr. Hankins at 1:44 PM SPRINKLING SYSTEM INSTALLER on 04/27/2024. Impressions 04/27/2024 1:39 PM SPRINKLING SYSTEM INSTALLER IMPRESSION: 1. Questionable hazy gatica-white matter differentiation and cerebral sulcal effacement, most pronounced in the left frontal lobe could suggest cerebral edema. Recommend brain MRI to further evaluate. 2. No CT evidence for intracranial hemorrhage. 3. Partially empty sella. Communication pending. Narrative 04/27/2024 1:39 PM SPRINKLING SYSTEM INSTALLER EXAM: CT HEAD W/O CONTRAST LOCATION: [facility] DATE: 04/27/2024 INDICATION: Altered mental status COMPARISON: [...] 04/27/2024 EXAM: CT HEAD W/O CONTRAST LOCATION: [facility] DATE: 04/27/2024 INDICATION: Altered mental status COMPARISON: [...] empty sella. Communication pending. Taty Verdugo MD [facility] CT ORDERABLES Edited Result - Final * (ABNORMAL) Urine Drug Screen Panel (04/27/2024 9:[address] [facility]) Amphetamines Urine Screen Positive(A) Screen Negative 04/27/2024 10:07 AM [facility] Comment: Cutoff for a positive amphetamine is 500 ng/mL or greater. This is an unconfirmed screening result to be used for medical purposes only. Barbituates Urine Screen Negative Screen Negative 04/27/2024 10:07 AM [facility] Comment:Cutoff for a negativ e barbiturate is less than 200 ng/mL. Benzodiazepine Urine Screen Negative Screen Negative 04/27/2024 10:07 AM [facility] Comment:Cutoff for a negativ e benzodiazepine is less than 100 ng/mL. Cannabinoids Urine Screen Positive(A) Screen Negative 04/27/2024 10:07 AM [facility] Comment: Cutoff for a positive cannabinoid is 50 ng/mL or greater. This is an unconfirmed screening result to be used for medical purposes only. Cocaine Urine Screen Negative Screen Negative 04/27/2024 10:07 AM [facility] Comment:Cutoff for a negativ e cocaine is less than 300 ng/mL. Fentanyl Qual Urine Screen Negative Screen Negative 04/27/2024 10:07 AM [facility] Comment:Cutoff for negative fentanyl is less than 5 ng/mL. Opiates Urine Screen Negative Screen Negative 04/27/2024 10:07 AM [facility] Comment:Cutoff for a negativ e opiate is less than 300 ng/mL. PCP Urine Screen Negative Screen Negative 04/27/2024 10:07 AM [facility] Comment:Cutoff for a negativ e PCP is less than 25 ng/mL. Urine URINE SPECIMEN FROM URINARY CONDUIT / Unknown Non-blood Collection / Unknown 04/27/2024 9:27 AM SPRINKLING SYSTEM INSTALLER 04/27/2024 9:[address] [facility] Taty Verdugo MD LAB - URINE ORDERABLES F inal Result LABORATORY [facility] [address] [facility] Lab (1st floor, no room number) [place] [address], [facility] * XR Chest Port 1 View (04/27/2024 9:12 AM SPRINKLING SYSTEM INSTALLER) Anatomical Region Laterality Modality Chest Digital Radiogra phy 04/27/2024 9:12 AM SPRINKLING SYSTEM INSTALLER Impressions 04/27/2024 9:15 AM SPRINKLING SYSTEM INSTALLER IMPRESSION: Lungs are clear. No effusions or pneumothorax. Heart size is normal. Cholecystectomy. Mild nonspecific gaseous distention of the visualized bowel in the upper abdomen. Narrative 04/27/2024 9:15 AM SPRINKLING SYSTEM INSTALLER EXAM: XR CHEST PORT 1 VIEW LOCATION: [facility] DATE: 04/27/2024 INDICATION: drug overdose COMPARISON: 10/11/2019 Procedure Note Kev Saldana MD - 04/27/2024 EXAM: XR CHEST PORT 1 VIEW LOCATION: [facility] DATE: 04/27/2024 INDICATION: drug overdose COMPARISON: 10/11/2019 IMPRESSION: Lungs are clear. No effusions or pneumothorax. Heart size isnormal. Cholecystectomy. Mild nonspecific gaseous distention of thevisualized bowel in the upper abdomen. Taty Verdugo MD IMG DIAGNOSTIC IMAGING O RDERABLES Final Result * (ABNORMAL) Glucose by meter (04/27/2024 9:08 AM SPRINKLING SYSTEM INSTALLER) GLUCOSE BY METER POCT 169(H) 70 - 99 mg/dL 04/27/2024 9:15 AM SPRINKLING SYSTEM INSTALLER LABORATORY POC Blood, Capillary BLOOD SPECIMEN / Unknown 04/27/2024 9:08 AM SPRINKLING SYSTEM INSTALLER 04/27/2024 9:15 AM SPRINKLING SYSTEM INSTALLER Taty Verdugo MD LAB - BEAKER POCT Final Result LABORATORY [facility] Lab [address] Lab (1st floor, no room number) [place] [address], [facility] * (ABNORMAL) iStat Gases (lactate) venous, POCT (04/27/2024 9:06 AM SPRINKLING SYSTEM INSTALLER) Lactic Acid POCT 2.8(H) <=2.0 mmol/L 04/27/2024 9:11 AM SPRINKLING SYSTEM INSTALLER RH LABORATORY POC Bicarbonate Venous POCT 22 21 - 28 mmol/L 04/27/2024 9:11 AM SPRINKLING SYSTEM INSTALLER [facility] LABORATORY POC O2 Sat, Venous POCT 93(H) 70 - 75 % 04/27/2024 9:11 AM SPRINKLING SYSTEM INSTALLER [facility] LABORATORY POC pCO2 Venous POCT 39(L) 40 - 50 mm Hg 04/27/2024 9:11 AM SPRINKLING SYSTEM INSTALLER [facility] LABORATORY POC pH Venous POCT 7.37 7.32 - 7.43 04/27/2024 9:11 AM SPRINKLING SYSTEM INSTALLER [facility] LABORATORY POC pO2 Venous POCT 70(H) 25 - 47 mm Hg 04/27/2024 9:11 AM SPRINKLING SYSTEM INSTALLER [facility] LABORATORY POC Blood, venous BLOOD SPECIMEN / Unknown 04/27/2024 9:06 AM SPRINKLING SYSTEM INSTALLER 04/27/2024 9:11 AM SPRINKLING SYSTEM INSTALLER Taty Verdugo MD LAB - BEAKER POCT Final Result LABORATORY [facility] Lab [address] Lab (1st floor, no room number) [address] * Extra Red Top Tube (04/27/2024 9:03 AM SPRINKLING SYSTEM INSTALLER) Pathologist [facility] Hold Specimen [facility] 04/27/2024 10:31 AM SPRINKLING SYSTEM INSTALLER LABORATORY Blood BLOOD SPECIMEN / Unknown Venipuncture / Unknown 04/27/2024 9:03 AM SPRINKLING SYSTEM INSTALLER 04/27/2024 9:16 AM SPRINKLING SYSTEM INSTALLER Taty Verdugo MD LAB - BLOOD ORDERABLES F inal Result [facility] Lab [address] Lab (1st floor, no room number) [address] * (ABNORMAL) CBC with platelets and differential (04/27/2024 9:03 AM SPRINKLING SYSTEM INSTALLER) WBC Count 13.4(H) 4.0 - 11.0 10e3/uL 04/27/2024 9:21 AM SPRINKLING SYSTEM INSTALLER [facility] LABORATORY RBC Count 4.90 3.80 - 5.20 10e6/uL 04/27/2024 9:21 AM SPRINKLING SYSTEM INSTALLER [facility] LABORATORY Hemoglobin 15.5 11.7 - 15.7 g/dL 04/27/2024 9:21 AM SPRINKLING SYSTEM INSTALLER [facility] LABORATORY Hematocrit 44.4 35.0 - 47.0 % 04/27/2024 9:21 AM SPRINKLING SYSTEM INSTALLER RH LABORATORY MCV 91 78 - 100 fL 04/27/2024 9:21 AM SPRINKLING SYSTEM INSTALLER RH LABORATORY MCH 31.6 26.5 - 33.0 pg 04/27/2024 9:21 AM SPRINKLING SYSTEM INSTALLER RH LABORATORY MCHC 34.9 31.5 - 36.5 g/dL 04/27/2024 9:21 AM SPRINKLING SYSTEM INSTALLER [facility] LABORATORY RDW 12.0 10.0 - 15.0 % 04/27/2024 9:21 AM SPRINKLING SYSTEM INSTALLER [facility] LABORATORY Platelet Count 324 150 - 450 10e3/uL 04/27/2024 9:21 AM SPRINKLING SYSTEM INSTALLER [facility] LABORAT[facility] % Neutrophils 60 % 04/27/2024 9:21 AM SPRINKLING SYSTEM INSTALLER [facility] LAB[facility] % Lymphocytes 29 % 04/27/2024 9:21 AM SPRINKLING SYSTEM INSTALLER [facility] LAB[facility] % Monocytes 9 % 04/27/2024 9:21 AM SPRINKLING SYSTEM INSTALLER [facility] LAB[facility] % Eosinophils 2 % 04/27/2024 9:21 AM SPRINKLING SYSTEM INSTALLER [facility] LAB[facility] % Basophils 0 % 04/27/2024 9:21 AM SPRINKLING SYSTEM INSTALLER [facility] LAB[facility] % Immature Granulocytes 0 % 04/27/2024 9:21 AM SPRINKLING SYSTEM INSTALLER [facility] LABORATORY NRBCs per 100 WBC 0 <1 /100 025 9:21 AM SPRINKLING SYSTEM INSTALLER [facility] LABORATORY Absolute Neutrophils 8.0 1.6 - 8.3 10e3/uL 04/27/2024 9:21 AM SPRINKLING SYSTEM INSTALLER [facility] LABORATORY Absolute Lymphocytes 3.9 0.8 - 5.3 10e3/uL 04/27/2024 9:21 AM SPRINKLING SYSTEM INSTALLER [facility] LABORAT[facility] Absolute Monocytes 1.1 0.0 - 1.3 10e3/uL 04/27/2024 9:21 AM SPRINKLING SYSTEM INSTALLER [facility] LABORATORY Absolute Eosinophils 0.3 0.0 - 0.7 10e3/uL 04/27/2024 9:21 AM SPRINKLING SYSTEM INSTALLER [facility] LABORATORY Absolute Basophils 0.1 0.0 - 0.2 10e3/uL 04/27/2024 9:21 AM SPRINKLING SYSTEM INSTALLER [facility] LABORATORY Absolute Immature Granulocytes 0.1 <=0.4 10e3/uL 04/27/2024 9:21 AM SPRINKLING SYSTEM INSTALLER LABORATORY Absolute NRBCs 0.0 10e3/uL 04/27/2024 9:21 AM SPRINKLING SYSTEM INSTALLER LABORATORY Blood BLOOD SPECIMEN / Unknown Venipuncture / Unknown 04/27/2024 9:03 AM SPRINKLING SYSTEM INSTALLER 04/27/2024 9:16 AM SPRINKLING SYSTEM INSTALLER Taty Verdugo MD LAB - BLOOD ORDERABLES F inal Result [facility] [address] Lab (1st floor, no room number) [place] [address], [facility] * Troponin T, High Sensitivity (04/27/2024 9:03 AM SPRINKLING SYSTEM INSTALLER) [facility] Troponin T, High Sensitivity <6 <=14 ng/L 04/27/2024 9:38 AM SPRINKLING SYSTEM INSTALLER LABORATORY Comment: Either a High Sensitivity Troponin [...] Unknown Venipuncture / Unknown 04/27/2024 9:03 AM SPRINKLING SYSTEM INSTALLER 04/27/2024 9:16 AM SPRINKLING SYSTEM INSTALLER Taty Verdugo MD LAB - BLOOD ORDERABLES F inal Result [facility] Acute Care Lab [address] Lab (1st floor, no room number) [place] [address], [facility] * Salicylate level (04/27/2024 9:03 AM SPRINKLING SYSTEM INSTALLER) Salicylate <0.3 mg/dL 04/27/2024 10:35 AM SPRINKLING SYSTEM INSTALLER [facility] LABORATORY Comment: Salicylate Reference Range Therapeutic: 3-10 mg/dL Anti inflammatory: 15-30 mg/dL Blood BLOOD SPECIMEN / Unknown Venipuncture / Unknown 04/27/2024 9:03 AM SPRINKLING SYSTEM INSTALLER 04/27/2024 9:16 AM SPRINKLING SYSTEM INSTALLER Taty Verdugo MD LAB - BLOOD ORDERABLES F inal Result [facility] Lab [address] Lab (1st floor, no room number) [address] * HCG QUALitative (blood) (04/27/2024 9:03 AM SPRINKLING SYSTEM INSTALLER) Pathologist [facility] hCG Serum Qualitative Negative Negative MARTHA 04/27/2024 10:19 AM SPRINKLING SYSTEM INSTALLER [facility] LABORATORY Comment:This test is for scr eening purposes. Results should be interpreted along with the clinical picture. Confirmation testing is available if warranted by ordering [id number], HCG Quantitative . Blood BLOOD SPECIMEN / Unknown Venipuncture / Unknown 04/27/2024 9:03 AM SPRINKLING SYSTEM INSTALLER 04/27/2024 9:16 AM SPRINKLING SYSTEM INSTALLER Taty Verdugo MD LAB - BLOOD ORDERABLES F inal Result [facility] Lab [address] Lab (1st floor, no room number) [address] * (ABNORMAL) Alcohol level blood (04/27/2024 9:03 AM SPRINKLING SYSTEM INSTALLER) Alcohol ethyl 0.30(H) <=0.01 g/dL 04/27/2024 11:06 AM SPRINKLING SYSTEM INSTALLER [facility] LABORATORY Blood BLOOD SPECIMEN / Unknown Venipuncture / Unknown 04/27/2024 9:03 AM SPRINKLING SYSTEM INSTALLER 04/27/2024 9:16 AM SPRINKLING SYSTEM INSTALLER Taty Verdugo MD LAB - BLOOD ORDERABLES F inal Result [facility] Acute Care Lab [address] [facility] Lab (1st floor, no room number) [place] [address], [facility] * EKG Cardiac - HIM Scan (04/27/2024 12:00 AM SPRINKLING SYSTEM INSTALLER) Only the most recent of4 resultswithin the [...] Lawson Report Patient Name: SEEMA CORDERO MR#: [id number] Specimen #: [id number] Collected: 09/14/2018 Received: 09/18/2018 Reported: 09/24/2018 14:24 [...] adenocarcinomas or other cancers. COLLECTION SITE: Client: [facility] Location: [facility] (B) The technical component of this testing was completed at the [facility], with the professional component performed at the [facility], [address] [place] [phone] ([phone]) COPATH Cytologic material (specimen) 09/14/2018 3:12 PM CDT 09/18/2018 8:30 AM CDT us Marina Alejandro NP LAB - OPTIME CLINICAL SPECIMEN F inal Result COPATH * HPV High Risk Types DNA Cervical (09/14/2018 3:12 PM CDT) HPV Source [facility] 09/14/2018 3:12 PM CDT [facility] HPV 16 DNA Negative NEG^Nega tive 09/25/2018 12:34 PM CDT [facility] HPV 18 DNA Negative NEG^Nega tive 09/25/2018 12:34 PM CDT [facility] Other HR HPV Negative NEG^Nega tive 09/25/2018 12:34 PM CDT [facility] Final Diagnosis This patient's sample is negative for HPV DNA. 09/25/2018 12:34 PM CDT [facility] Comment: This test was developed and its performance characteristics determined by the [facility], Molecular Diagnostics Laboratory. It has not been [...] Description Cervical Cells 09/14/2018 3:12 PM CDT [facility] Comment:[id number] Cervical Cells CERVIX UTERI STRUCTURE / Unknown 09/14/2018 3:12 PM CDT 09/17/2018 10:55 AM CDT us Marina Alejandro INSULATION BOARD BACK TENDER LAB - BLOOD ORDERABLES Final Res ult [facility] [address] [place] [address] [facility] [address] [place], [place] [address] [phone] * Hepatitis C (HIM External Result) (05/28/2018 2:31 PM SPRINKLING SYSTEM INSTALLER) Hep C HIM See Scanned Document [facility] 05/28/2018 2:31 PM SPRINKLING SYSTEM INSTALLER Narrative [facility] - 05/28/2018 2:31 PM SPRINKLING SYSTEM INSTALLER See [facility] us Provider Outside LAB - HIM EXTERNAL RESULT Final Result Performing Organization Address [facility] [place] [address], [facility] [phone] * HIV Antigen Antibody Combo (05/28/2018) HIV Antigen Antibody Combo Nonreactive Nonreactive [facility] Comment:HIV Screen includes testing for HIV-1 antigen and antibodies to both HIV-1 and HIV-2. Blood specimen (specimen) 05/28/2018 Narrative [facility] - 05/28/2018 See [facility]. us Provider Outside LAB - BLOOD ORDERABLES Final Re sult Performing Organization Address City/[facility]/ZIP Co de Phone Number [address] [address], [facility] [phone] from Last 3 Months or Most Recently Relevant to Health Maintenance Insurance [facility] RISK MANAGEMENT Advance Directives For more information, please contact: [phone] * Full Code (Latest Code Status on [...] Comments Code status determined by: Discussion with kevone nt/ legal decision maker Care Teams Seafood Clerk Relationship Specialty Start Date End Date Terence Smyth MD [facility] [place] [address] [place] [address] PCP - General Family Medicine 04/27/24 Alma Valencia, PT [address] [place] [address] [address] [place], [place] [id number] Specialty Shearing Machine Operator Physical Medicine and Rehabilitation 02/12/19 Leonor Draper MD [address] [place] [address] Physical Medicine and Rehabilitation 02/12/19 Jerri Fink RN RETIRED [place], [place] [id number] Specialty Shearing Machine Operator Physical Medicine and Rehabilitation 02/12/19 Rahul Orourke MD [address] [place] [address] [id number] Assigned Surgical Provider 02/04/23 Bina Chen CAR BUILDER [phone] [place] [address] Assigned PCP 05/26/24
[2024-06-14 15:33] VITALS: BP 139/94; PULSE 111; RESP 18; TEMP 37.3; O2SAT 97; BMI 30.2
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
[2024-06-14 16:32] LABS: Basophils Absolute Auto 0.03 K/uL (0.00-0.30); Basophils Percent Auto 0.3 % (0.0-3.0); Eosinophils Absolute Auto 0.29 K/uL (0.00-0.50); Eosinophils Percent Auto 2.8 % (0.0-7.0); Hematocrit 38.6 % (33.0-51.0); Hemoglobin* 13.3 gm/dL (12.0-16.0); Immature Granulocytes Abs Auto 0.02 K/uL (0.00-0.30); Immature Granulocytes Pct Auto 0.2 %; Lymphocytes Absolute Auto 2.84 K/uL (0.90-2.90); Lymphocytes Percent Auto 27.6 % (20-44); Mean Corpuscular HGB Conc 35 gm/dL (32-36); Mean Corpuscular Hemoglobin 32 pg (26-34); Mean Corpuscular Volume 93 fL (80-100); Monocytes Percent Auto 8.9 % (0.0-11.0); Neutrophils Absolute Auto 6.19 K/uL (1.7-7.0); Neutrophils Percent Auto 60.2 % (42.0-72.0); Platelet Count* 327 K/uL (140-440); RDW Coefficient of Variation % 12.5 % (11.5-15.5); Red Blood Count 4.16 m/uL (4.00-5.20); White Blood Count* 10.28 K/uL (4.50-11.00)
[2024-06-14 16:37] LABS: Slide Review Reflex No
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
--- NOTE | 2024-06-14 16:43 | CRLHL7_ITS ---
For Patients: As a result of the Century Cures Act, medical imaging exams and procedure reports are released immediately into your electronic medical record. You may view this report before your referring provider. If you have questions, please contact your health care provider. INDICATION: Postop vaginal bleeding. TECHNIQUE: CT abdomen and pelvis acquired with 81 cc of Isovue 370 IV contrast. COMPARISON: None. FINDINGS: Lower chest: Unremarkable. Liver: Unremarkable. Normal in size and attenuation. No suspicious masses. Gallbladder and bile ducts: Status post cholecystectomy. No abnormal biliary ductal dilatation. Pancreas: Unremarkable. No mass or inflammation. Spleen: Unremarkable. Normal in size. No masses. Adrenal glands: Unremarkable. No nodules. Kidneys: Punctate bilateral nonobstructing nephroliths. Multiple too small to characterize subcentimeter hypodense foci within the kidneys. Punctate stone within the left proximal ureter. No hydronephrosis. GI tract: Unremarkable. Normal in caliber. No sign of mass or inflammation. Normal appendix. Vasculature: Abdominal aorta is normal in caliber. Mesenteric arteries are patent. Lymph nodes: No lymphadenopathy. Peritoneum/Abdominal Wall: Tiny fat-containing umbilical hernia. No free air or significant free fluid. Pelvis: Status post hysterectomy. Bones: Numerous tiny bone islands throughout the pelvis. No acute findings or aggressive osseous lesion. IMPRESSION: 1. No acute findings within the abdomen and pelvis. Status post hysterectomy. 2. Punctate stone within the left proximal ureter without associated hydronephrosis. 3. Additional bilateral punctate nonobstructing nephroliths. Please note that all CT scans at this facility use dose modulation, iterative reconstruction, and/or weight-based dosing when appropriate to reduce radiation dose to as low as reasonably achievable. Dictated by Jose Haas MD @ 06/14/2024 6:10:32 PM (Electronically Signed)
[2024-06-14 16:45] LABS: Chloride* 105 mmol/L (96-114); Potassium* 3.8 mmol/L (3.6-5.1); Sodium* 138 mmol/L (135-149)
[2024-06-14 16:48] LABS: Anion Gap 10 mEq/L (7-15); Blood Urea Nitrogen* 13 mg/dL (5-24); Calcium* 9.1 mg/dL (8.4-10.6); Carbon Dioxide* 23 mmol/L (20-32); Creatinine* 0.8 mg/dL (0.5-1.5); Est. Creatinine Clearance* 67.28; Estimated Glomerular Filt Rate 90 ml/min; Glucose* 102 mg/dL (60-115)
--- OUTSIDE RECORDS SUMMARY | 2024-06-14 16:54 | XMS_ITS | Encounter Summary ---
Author Organization [place] Address [facility] [place] [address] Care Team Providers Care Department Of Sociology Chair Name Role Phone Edilberto Lopez MD Primary Care Provider [phone] Edilberto Lopez MD Unavailable [phone] Alma Valencia PT Unavailable [phone] Leonor Draper MD Unavailable Jerri Fink RN Unavailable Leonor Draper MD Unavailable Claude Amaro MD Unavailable No Ref-Primary, Physician Primary Care Provider Theresa Carpio MD Primary Care Provider [phone] Theresa Carpio MD Unavailable [phone] Theresa Carpio MD Unavailable [phone] Paty Dacosta NP Unavailable Rahul Orourke MD Unavailable [phone] Terence Smyth MD Primary Care Provider Bina Chen CNP Unavailable [phone] Reason for Visit * Reason Comments Medication Refill Ambien Encounter Details Date Type Department Care Team (Late st Contact Info) Description 11/18/2015 Refill [facility] [place] [address] [place] [address] Edilberto Lopez MD [address] [facility] [place] [id number] Medication Refill (Ambien) Social History Tobacco Use Types Packs/Day Years Used Date Smoking Tobacco: Former Cigarettes Q uit: 07/29/1996 Smokeless Tobacco: Never Comments:no passive exposure Alcohol Use Standard Drinks/Week Comments No 0 (1 standard drink = 0.6 oz pur e alcohol) Comments No Sex and Gender Information Value Date Recorded Sex Assigned at Not on file Legal Sex Female 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 Gender Identity Not on file Sexual Orientation Not on file 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 on file Not [...] Out COVID-19 02/03/2020 02/03/2020 02/04/2020 4:32 PM NEIGHBORHOOD AIDE Rule Out COVID-19 12/12/2022 12/12/2022 12/12/2022 1:09 PM CDT COVID-19 12/12/2022 12/12/2022 01/02/2023 11:3 9 PM CDT Rule Out COVID-19 04/27/2024 04/27/2024 04/27/2024 8:24 PM NEIGHBORHOOD AIDE Assessment Noted Time PHQ-9 Depression Total Score: 2 10/28/19 16 7:18 AM CDT documented as of this encounter Care Teams Department Of Sociology Chair Relationship Specialty Start Date End Date Edilberto Lopez MD [address] [place] [id number] PCP - General 05/30/12 06/23/22 No Ref-Primary, Physician PCP - General 06/24/22 12/25/22 Theresa Carpio MD [address] [place] [id number] PCP - General Family Medicine 12/26/22 04/26/24 Terence Smyth MD [facility] [address] [place] [id number] PCP - General Family Medicine 04/27/24 Edilberto Lopez MD [address] [place] [address] Assigned PCP 12/29/13 07/18/20 Alma Valencia, PT [address] [place] [address] [address] [place] [address] Specialty Construction Tech Physical Medicine and Rehabilitation 02/12/19 Leonor Draper MD [address] [place] [address] Physical Medicine and Rehabilitation 02/12/19 [place] [address] Specialty Construction Tech Physical Medicine and Rehabilitation 02/12/19 Leonor Draper MD [address] [place] [id number] Assigned Neuroscience Provider 01/24/20 06/12/21 Claude Amaro MD [address] [place], [place] [address] Assigned OBGYN Provider 01/24/20 04/04/20 Theresa Carpio MD [address] [place] [address] Assigned Pain Medication Provider 01/14/23 04/26/23 Theresa Carpio MD [address] [place], [place] [id number] Assigned PCP 01/07/23 05/25/24 Paty Dacosta NP [address] [id number] Assigned Surgical Provider 01/07/23 02/03/23 Rahul Orourke MD [address] [place] [address] [id number] Assigned Surgical Provider 02/04/23 Bina Chen [employer] [address] [place] [address] Assigned PCP 05/26/24 documented as of this encounter
--- OUTSIDE RECORDS SUMMARY | 2024-06-14 16:54 | XMS_ITS | Encounter Summary ---
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 04/30/2024 8:40 AM HR RECEPTIONIST UR LABORATORY Blood BLOOD SPECIMEN / Unknown Venipuncture / Unknown 04/30/2024 7:51 AM HR RECEPTIONIST 04/30/2024 8:06 AM HR RECEPTIONIST Adrienne Ledesma APRN [facility] LAB - BLOOD ORDER ADÁN Final Result UR LABORATORY [facility] [address] [place] [address], Room [place] [id number] [place] [address] * Lactic acid whole blood (04/30/2024 7:51 AM HR RECEPTIONIST) Lactic Acid 1.3 0.7 - 2.0 mmol/L 04/30/2024 8:06 AM HR RECEPTIONIST UR LABORATORY Blood BLOOD SPECIMEN / Unknown Venipuncture / Unknown 04/30/2024 7:51 AM HR RECEPTIONIST 04/30/2024 8:04 AM HR RECEPTIONIST Adrienne Ledesma APRN [facility] LAB - BLOOD ORDER ADÁN Final Result Performing Organization Address City/[facility]/ZIP Co de Phone Number UR LABORATORY [facility] Lab [address] [place] [address], Room [place] [phone] [place] [address] * TSH with free T4 reflex and/or T3 as indicated (04/30/2024 7:51 AM HR RECEPTIONIST) TSH 1.15 0.30 - 4.20 uIU/mL 04/30/2024 8:40 AM HR RECEPTIONIST UR LABORATORY Blood BLOOD SPECIMEN / Unknown Venipuncture / Unknown 04/30/2024 7:51 AM HR RECEPTIONIST 04/30/2024 8:06 AM HR RECEPTIONIST us Adrienne Ledesma APRN [facility] LAB - BLOOD ORDER ADÁN Final Result UR LABORATORY [facility] [address] [place] [address], Room [address] [phone] * (ABNORMAL) Lipid panel (04/30/2024 7:51 AM HR RECEPTIONIST) Cholesterol 238(H) <200 mg/dL 04/30/2024 8:40 AM HR RECEPTIONIST UR LABORATORY Triglycerides 245(H) <150 mg/dL 04/30/2024 8:40 AM HR RECEPTIONIST UR LABORATORY Direct Measure HDL 43(L) >=50 mg/dL 04/30/2024 8:40 AM HR RECEPTIONIST UR LABORATORY LDL Cholesterol Calculated 146(H) <100 mg/dL 04/30/2024 8:40 AM HR RECEPTIONIST UR LABORATORY Non HDL Cholesterol 195(H) <130 mg/dL 04/30/2024 8:40 AM HR RECEPTIONIST UR LABORATORY Blood BLOOD SPECIMEN / Unknown Venipuncture / Unknown 04/30/2024 7:51 AM HR RECEPTIONIST 04/30/2024 8:06 AM HR RECEPTIONIST Narrative UR LABORATORY - 04/30/2024 8:40 AM HR RECEPTIONIST Cholesterol Desirable: < 200 mg/dL Borderline High: [...] >= 220 mg/dL us Adrienne Ledesma APRN [facility] LAB - BLOOD ORDER ADÁN Final Result UR LABORATORY [facility] [address] [facility], [address] [place] [address], [facility] * Hemoglobin A1c (04/30/2024 7:51 AM HR RECEPTIONIST) Estimated Average Glucose 100 <117 mg/dL 04/30/2024 8:23 AM HR RECEPTIONIST UR LABORATORY Hemoglobin A1C 5.1 <5.7 % 04/30/2024 8:23 AM HR RECEPTIONIST UR LABORATORY Comment: Normal <5.7% Prediabetes 5.7-6.4% Diabetes 6.5% or higher Note: Adopted from ADA consensus guidelines. Blood BLOOD SPECIMEN / Unknown Venipuncture / Unknown 04/30/2024 7:51 AM HR RECEPTIONIST 04/30/2024 8:06 AM HR RECEPTIONIST Adrienne Ledesma APRN [facility] LAB - BLOOD ORDER ADÁN Final Result UR LABORATORY [facility] [address] [facility], [address] [place] [address] * Comprehensive metabolic panel (04/30/2024 7:51 AM HR RECEPTIONIST) Sodium 140 135 - 145 mmol/L 04/30/2024 8:40 AM HR RECEPTIONIST UR LABORATORY Potassium 3.8 3.4 - 5.3 mmol/L 04/30/2024 8:40 AM HR RECEPTIONIST UR LABORATORY Carbon Dioxide (CO2) 24 22 - 29 mmol/L 04/30/2024 8:40 AM HR RECEPTIONIST UR LABORATORY Anion Gap 12 7 - 15 mmol/L 04/30/2024 8:40 AM HR RECEPTIONIST UR LABORATORY Urea Nitrogen 7.9 6.0 - 20.0 mg/dL 04/30/2024 8:40 AM HR RECEPTIONIST UR LABORATORY Creatinine 0.79 0.51 - 0.95 mg/dL 04/30/2024 8:40 AM HR RECEPTIONIST UR LABORATORY GFR Estimate >90 >60 mL/min/1.7 3m2 04/30/2024 8:40 AM HR RECEPTIONIST UR LABORATORY Comment:eGFR calculated usin 2020 CKD-EPI equation. Calcium 9.8 8.8 - 10.4 mg/dL 04/30/2024 8:40 AM HR RECEPTIONIST UR LABORATORY Comment:Reference intervals for this test were updated on 10/17/2023 to reflect our healthy population more accurately. There may be differences in the flagging of prior results with similar values performed with this method. Those prior results can be interpreted in the context of the updated reference intervals. Chloride 104 98 - 107 mmol/L 04/30/2024 8:40 AM HR RECEPTIONIST UR LABORATORY Glucose 98 70 - 99 mg/dL 04/30/2024 8:40 AM HR RECEPTIONIST UR LABORATORY Alkaline Phosphatase 65 40 - 150 U/L 04/30/2024 8:40 AM HR RECEPTIONIST UR LABORATORY AST 20 0 - 45 U/L 04/30/2024 8:40 AM HR RECEPTIONIST UR LABORATORY ALT 20 0 - 50 U/L 04/30/2024 8:40 AM HR RECEPTIONIST UR LABORATORY Protein Total 7.4 6.4 - 8.3 g/dL 04/30/2024 8:40 AM HR RECEPTIONIST UR LABORATORY Albumin 4.4 3.5 - 5.2 g/dL 04/30/2024 8:40 AM HR RECEPTIONIST UR LABORATORY Bilirubin Total 0.7 <=1.2 mg/dL 04/30/2024 8:40 AM HR RECEPTIONIST UR LABORATORY Blood BLOOD SPECIMEN / Unknown Venipuncture / Unknown 04/30/2024 7:51 AM HR RECEPTIONIST 04/30/2024 8:06 AM HR RECEPTIONIST us Adrienne Ledesma WOOD BOATBUILDER APPRENTICE [facility] LAB - BLOOD ORDER ADÁN Final Result UR LABORATORY [facility] [address] [facility], [address] [place] [address] documented in this encounter Visit Diagnoses [...] endometral infectionIndications:endometral infection $Given 05/02/2024 8:14 AM HR RECEPTIONIST 1 tablet $Given 05/01/2024 8:37 PM HR RECEPTIONIST 1 tablet $Given 05/01/2024 8:27 AM HR RECEPTIONIST 1 tablet amphetamine-dextroamphetamine (ADDERALL XR) ER cap 20 mg 20 mg, Oral, DAILY, First dose on Mon04/30/24 at 0830, DO NOT CRUSH. $Given 05/02/2024 8:13 AM HR RECEPTIONIST 20 mg $Given 05/01/2024 8:27 AM HR RECEPTIONIST 20 mg $Given 04/30/2024 9:05 AM HR RECEPTIONIST 20 mg buPROPion (WELLBUTRIN XL) 24 hr tablet 150 mg 150 mg, Oral, DAILY, First dose on Mon04/30/24 at 0800, DO NOT CRUSH. $Given 05/02/2024 8:13 AM HR RECEPTIONIST 150 mg $Given 05/01/2024 8:26 AM HR RECEPTIONIST 150 mg $Given 04/30/2024 8:36 AM HR RECEPTIONIST 150 mg cloNIDine (CATAPRES) tablet 0.1 mg 0.1 mg, Oral, EVERY 6 HOURS PRN, anxiety. First line treatment for anxiety. Hold for SBP < 100., Starting on Mon05/01/24 at 0742 $Given 05/01/2024 1:39 PM HR RECEPTIONIST 0.1 mg diphenhydrAMINE (BENADRYL) capsule 25 mg [...] ordered for anxiety. $Given 05/02/2024 12:32 AM HR RECEPTIONIST 50 mg hydrOXYzine HCl (ATARAX) tablet 50 mg 50 mg, Oral, EVERY 4 HOURS PRN, anxiety, First line treatment, Starting on Mon04/29/24 at 1716, Administer only if there is no other oral medication ordered prn for anxiety. Consider discontinuing if another PRN is ordered for anxiety. $Given 04/30/2024 1:21 AM HR RECEPTIONIST 50 mg hydrOXYzine HCl (ATARAX) tablet 50 mg 50 mg, Oral, EVERY 4 HOURS PRN, anxiety, Starting on Mon04/30/24 at 0826, Administer only if there is no other oral medication ordered prn for anxiety. Consider discontinuing if another PRN is ordered for anxiety. $Given 04/30/2024 12:49 PM HR RECEPTIONIST 50 mg levothyroxine (SYNTHROID/LEVOTHROID) tablet 25 mcg 25 mcg, Oral, EVERY MORNING BEFORE BREAKFAST, First dose on Mon04/30/24 at 0730, Separate oral administration of iron- or calcium-containing products and levothyroxine by at least 4 hours. $Given 05/02/2024 8:14 AM HR RECEPTIONIST 25 mcg $Given 05/01/2024 8:27 AM HR RECEPTIONIST 25 mcg $Given 04/30/2024 8:36 AM HR RECEPTIONIST 25 mcg LORazepam (ATIVAN) tablet 0.5 mg 0.5 mg, Oral, EVERY 4 HOURS PRN, anxiety, panic attacks, Starting on Mon04/30/24 at 0826 medroxyPROGESTERone (PROVERA) tablet 20 mg 20 mg, Oral, 3 TIMES DAILY, First dose on Mon04/30/24 at 0830, For 15 doses $Given 05/02/2024 8:13 AM HR RECEPTIONIST 20 mg $Given 05/01/2024 8:37 PM HR RECEPTIONIST 20 mg $Given 05/01/2024 1:34 PM HR RECEPTIONIST 20 mg ondansetron (ZOFRAN ODT) ODT tab [...] SBP < 100 $Given 05/01/2024 8:37 PM HR RECEPTIONIST 1 mg $Given 04/30/2024 9:14 PM HR RECEPTIONIST 1 mg $Given 04/29/2024 7:58 PM HR RECEPTIONIST 1 mg senna-docusate (SENOKOT-S/PERICOLACE) 8.6-50 MG per tablet 1 tablet 1 tablet, Oral, 2 TIMES DAILY PRN, constipation, Starting on Mon04/29/24 at 1716, Hold for loose stools. zolpidem (AMBIEN) tablet 10 mg 10 mg, Oral, AT BEDTIME PRN, sleep, Starting on Mon04/29/24 at 1716 $Given 05/01/2024 8:41 PM HR RECEPTIONIST 10 mg $Given 04/30/2024 9:14 PM HR RECEPTIONIST 10 mg $Given 04/29/2024 8:13 PM HR RECEPTIONIST 10 mg documented in this encounter Active and Recently Administered Medications Times are shown in HR RECEPTIONIST. Scheduled Medication Order 04/30/2024 05/01/2024 05/02/2024 amoxicillin-clavulanate [...] Starting on Mon04/29/24 at 1716, Shake well. jovlwjy-uvjnaltrfcdwl-eoe feine (EXCEDRIN MIGRAINE) per tablet 2 tablet [...] documented as of this encounter Care Teams Collar Baster Jumpbasting Relationship Specialty Start Date End Date Terence Smyth MD [facility] [address], [place] [address] PCP - General Family Medicine 04/27/24 Alma Valencia, PT [address] [place] [address] [address] [place], [place] 7[address] Specialty Perinatal Nurse Physical Medicine and Rehabilitation 02/12/19 Leonor Draper MD [address] [place] [address] [id number] Physical Medicine and Rehabilitation 02/12/19 Jerri Fink, [place] RETIRED [place], [place] 5[address] Specialty Perinatal Nurse Physical Medicine and Rehabilitation 02/12/19 Theresa Crapio MD [address] [place] [address] [id number] Assigned PCP 01/07/23 05/25/24 Rahul Orourke MD [address] [place] [address] [id number] Assigned Surgical Provider 02/04/23 documented as of this encounter
--- OUTSIDE RECORDS SUMMARY | 2024-06-14 16:54 | XMS_ITS | Encounter Summary ---
Author Organization [facility] Address [address] [place] [address] Care Team Providers Care Multi Needle Machine Operator Name Role Phone Alma Valencia Tyler PT Unavailable [phone] Leonor Draper MD Unavailable + [phone] Jerri Fink RN Unavailable + [phone] Theresa Carpio MD Unavailable [phone] Rahul Orourke MD Unavailable [phone] Terence Smyth MD Primary Care Provider [phone] Bina Chen PHOTO ENGRAVER Unavailable [phone] Reason for Visit * Reason Onset Date Comments MH/CD Inpatient 04/29/2024 Encounter Details Date Type Department Care Team ([facility] Contact Info) Description 04/29/2024 Telephone [facility] Behavioral Health Intake [address] [place] [phone] Generic, Behavioral Intake, MD MH/CD Inpatient [...] in an abandoned building, in an overnight fci, or couch-surfing.) Yes 04/30/2024 Are you worried [...] on file Legal Sex Female 1:27 AM 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 Gender Identity Not on file Sexual Orientation [...] documented as of this encounter Care Teams Multi Needle Machine Operator Relationship Specialty Start Date End Date Terence Smyth MD [address] [address] PCP - General Family Medicine 04/27/24 Alma Valencia, PT [address] [facility] [address] [place], [place] 332[address] Specialty Political Science Instructor Physical Medicine and Rehabilitation 02/12/19 Leonor Draper MD [address] [place] [address] Physical Medicine and Rehabilitation 02/12/19 Jerri Fink RN RETIRED [place], [place] 586295 Specialty Political Science Instructor Physical Medicine and Rehabilitation 02/12/19 [place] [address] [place] [address] [phone] Assigned PCP 01/07/23 05/25/24 Rahul Orourke MD [address] [place] [address] [id number] Assigned Surgical Provider 02/04/23 Bina Chen PHOTO ENGRAVER [address] [place] [address] Assigned PCP 05/26/24 documented as of this encounter
--- OUTSIDE RECORDS SUMMARY | 2024-06-14 16:54 | XMS_ITS | Encounter Summary ---
Author Organization [facility] Address [address] [place] [address] Care Team Providers Care Utility Service Worker Name Role Phone Alma Valencia Tyler PT Unavailable [phone] Leonor Draper MD Unavailable Jerri Fink RN Unavailable + [phone] Theresa Carpio MD Primary Care Provider Theresa Carpio MD Unavailable Theresa Carpio MD Unavailable Paty Dacosta INSPECTOR CRYSTAL Unavailable Rahul Orourke MD Unavailable Terence Smyth MD Primary Care Provider Bina Chen DAMAGE PREVENTION COORDINATOR Unavailable [phone] Encounter Details Date Type Department Care Team (Late st Contact Info) Description 01/04/2023 MyC Medical Advice [facility] [address] [place] [address] Rocío Blair, RN Social History [...] in an overnight usp, or couch-surfing.) Yes 12/26/2022 Are you worried [...] on file Legal Sex Female 1:27 AM SHIFT SUPERVISOR FILM PROCESSING Gender Identity Not on file Sexual Orientation [...] Out COVID-19 04/27/2024 04/27/2024 04/27/2024 8:24 PM SHIFT SUPERVISOR FILM PROCESSING Assessment Noted Time PHQ-9 Depression Total Score: 1 12/27/19 11:15 AM CDT documented as of this encounter Care Teams Utility Service Worker Relationship Specialty Start Date End Date Theresa Carpio MD [address] [address] PCP - General Family Medicine 12/26/22 04/26/24 Terence Smyth MD [place] [id number] [address] [place] [address] PCP - General Family Medicine 04/27/24 Alma Valencia, PT [address] [place] [address] [address] [place], [place] [phone] Specialty Canned Food Reconditioning Inspector Physical Medicine and Rehabilitation 02/12/19 Leonor Draper MD [address] [place] [address] [id number] Physical Medicine and Rehabilitation 02/12/19 Jerri Fink RN RETIRED [place], [place] 138955 Specialty Canned Food Reconditioning Inspector Physical Medicine and Rehabilitation 02/12/19 Theresa Carpio MD [address] [address] Assigned Pain Medication Provider 01/14/23 04/26/23 Theresa Carpio MD [address] [address] Assigned PCP 01/07/23 05/25/24 Paty aDcosta NP [address] [address] Assigned Surgical Provider 01/07/23 02/03/23 Rahul Orourke MD [address] [address] Assigned Surgical Provider 02/04/23 Bina Chen, DAMAGE PREVENTION COORDINATOR [address] [place] [address] Assigned PCP 05/26/24 documented as of this encounter
--- OUTSIDE RECORDS SUMMARY | 2024-06-14 16:54 | XMS_ITS | Encounter Summary ---
Author Organization [facility] Address [facility]ly [facility] [place] [address] Care Team Providers Care Change Consultant Name Role Phone Edilberto Lopez MD Primary Care Provider [phone] Edilberto Lopez MD Unavailable [phone] Alma Valencia PT Unavailable [phone] Leonor Draper MD Unavailable Jerri Fink RN Unavailable Leonor Draper MD Unavailable Claude Amaro MD Unavailable No Ref-Primary, Physician Primary Care Provider Theresa Carpio MD Primary Care Provider [phone] Theresa Carpio MD Unavailable [phone] Theresa Carpio MD Unavailable [phone] Paty Dacosta NP Unavailable Rahul Orourke MD Unavailable + [phone] Terence Smyth MD Primary Care Provider Bina Chen CNP Unavailable [phone] Reason for Visit * Reason Comments Medication Refill Valium Encounter Details Date Type Department Care Team (Late st Contact Info) Description 06/28/2017 Refill [facility] [place] [address] [place] [address] Edilberto Lopez MD [address] [facility] [place] [id number] Medication Refill (Valium) Social History Tobacco Use Types Packs/Day Years Used Date Smoking Tobacco: Former Cigarettes Q uit: 07/29/1996 Smokeless Tobacco: Never Comments:no passive exposure Alcohol Use Standard Drinks/Week Comments No 0 (1 standard drink = 0.6 oz pur e alcohol) Comments No Sex and Gender Information Value Date Recorded Sex Assigned at Not on file Legal Sex Female 1:27 AM SOCIAL SERVICE WORKER Gender Identity Not on file Sexual Orientation [...] Out COVID-19 02/03/2020 02/03/2020 02/04/2020 4:32 PM SOCIAL SERVICE WORKER Rule Out COVID-12/12/2022 12/12/2022 12/12/2022 1:09 PM CDT COVID-19 12/12/2022 12/12/2022 01/02/2023 11:3 9 PM CDT Rule Out COVID-19 04/27/2024 04/27/2024 04/27/2024 8:24 PM SOCIAL SERVICE WORKER Assessment Noted Time PHQ-9 Depression Total Score: 0 06/11/19 18 7:58 AM SOCIAL SERVICE WORKER documented as of this encounter Care Teams Change Consultant Relationship Specialty Start Date End Date Edilberto Lopez MD [address] [place] [address] [id number] PCP - General 05/30/12 06/23/22 No Ref-Primary, Physician PCP - General 06/24/22 12/25/22 Theresa Carpio MD [address] [place] [address] PCP - General Family Medicine 12/26/22 04/26/24 Terence Smyth MD [place] [id number] [address] [place] [address] PCP - General Family Medicine 04/27/24 Edilberto Lopez MD [address] [place] [address] Assigned PCP 12/29/13 07/18/20 Alma Valencia, PT [address] [place] [address] 529145 Specialty Waistband Setter Lockstitch Physical Medicine and Rehabilitation 02/12/19 Leonor Draper MD [address] [place] [address] [id number] Physical Medicine and Rehabilitation 02/12/19 Jerri Fink, [place] [address] Specialty Waistband Setter Lockstitch Physical Medicine and Rehabilitation 02/12/19 Leonor Draper MD [facility] [address] [place], [place] [id number] Assigned Neuroscience Provider 01/24/20 06/12/21 Claude Amaro MD [address] [place], [place] 754146 Assigned OBGYN Provider 01/24/20 04/04/20 Theresa Carpio MD [address] [place], [place] 696306 Assigned Pain Medication Provider 01/14/23 04/26/23 Theresa Carpio MD [address] [place], [place] 784846 Assigned PCP 01/07/23 05/25/24 Paty Dacosta NP [address] [place] [address] [id number] Assigned Surgical Provider 01/07/23 02/03/23 Rahul Orourke MD [address] [place] [address] [id number] Assigned Surgical Provider 02/04/23 Bina Chen CERAMIC MOLD DESIGNER [address] [place] [address] Assigned PCP 05/26/24 documented as of this encounter
--- OUTSIDE RECORDS SUMMARY | 2024-06-14 16:54 | XMS_ITS | Clinical Summary ---
Author Organization [facility] Address [address] [place] [address] Care Team Providers Care Kiln Feeder Name Role Phone Alma Valencia Tyler PT Unavailable [phone] Leonor Draper MD Unavailable [phone] Jerri Fink RN Unavailable [phone] Rahul Orourke MD Unavailable [phone] Terence Smyth MD Primary Care Provider Bina Chen HOT MILL OPERATOR Unavailable [phone] Allergies Active Allergy Reactions Criticality Noted Date [...] Department Care Team Description 04/29/2024 5:08 PM SPEAKER MOUNTER - 05/02/2024 12:26 PM [facility] Hospital Encounter [facility] [address] [phone] Princess Ledesma MD Hartley, Alexandra, MD Lesion of parotid gland (Primary Dx); Endometriosis; Current severe 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 features, unspecified whether recurrent (H); ROB (generalized anxiety disorder); Insomnia, unspecified type Discharge Disposition: Home or Self Care 04/29/2024 Telephone [facility] Intake [address] [place] [phone] Generic, Behavioral IntakeMD MH/CD Inpatient 04/29/2024 Telephone [facility] Intake [address] [place] [phone] Generic, Behavioral IntakeMD 04/28/2024 Telephone [facility] Intake [address] [place] [phone] Generic, Behavioral IntakeMD 04/28/2024 Telephone [facility] Intake [address] [place] [phone] Generic, Behavioral IntakeMD MH/CD Inpatient 04/27/2024 8:56 AM SPEAKER MOUNTER - 04/29/2024 4:32 PM SPEAKER MOUNTER Hospital Encounter [place] [address] [facility] [address] [place] [phone] Taty Verdugo MD Jonkman, Tracy Dianne, MD Cabrera, Puma Curtis MD Suicidal ideation; Alcoholic intoxication without complication; Urinary retention; Anticholinergic drug overdose, intentional self-harm, initial encounter (H) Discharge Disposition: [facility] IP Readmission 04/27/2024 Telephone [facility] Intake [address] [place] [address] Generic, Behavioral Intake, from Last 3 Months Immunizations Name Administration Dates Next Due COVID-19 MONOVALENT 12+ (Pfizer) 05/21/2020,04/04 Flu, Unspecified 12/31/2011 [id number] Novel Flu- Nasal 01/23/2009 Influenza (H1N1) 01/23/2009 [...] on file Legal Sex Female 1:27 AM SPEAKER MOUNTER Gender Identity Not on file Sexual Orientation Not on file Occupation Industry Job Start Date Job End Date [employer] Not on file Not on file Not on file Last Filed Vital Signs Vital Sign Reading Time Taken Comments Blood Pressure 122/81 05/02/2024 8:00 AM SPEAKER MOUNTER Pulse 95 05/02/2024 8:00 AM SPEAKER MOUNTER Temperature 36.9 C (98.4 F) 05/02/2024 8:00 AM SPEAKER MOUNTER Respiratory Rate 16 04/29/2024 6:43 PM SPEAKER MOUNTER Oxygen Saturation 99% 05/02/2024 8:00 AM SPEAKER MOUNTER Inhaled Oxygen Concentration - - Weight 71 kg (156 lb 9.6 oz) 04/27/2024 8:42 PM SPEAKER MOUNTER Height 157.5 cm (5' 2) 04/27/2024 8:42 PM SPEAKER MOUNTER Body Mass Index 28.64 04/27/2024 8:42 PM SPEAKER MOUNTER Plan of Treatment Health Maintenance Due Date [...] this topic Medical Devices Implanted Type Area Buckle Strap Puncher Device Identifier Shelf Expiration Date Model / Serial / Lot Lens-Tecnis Multifocal 18.0 Implanted:Qty: 1 on 07/10/2012 by Inder Magdaleno MD at [facility] Left: Eye 03/11/2016 [id number] / [id number] / Procedures Procedure Name Priority Date/Time Associated Diagnosis Comments PHOSPHORUS Routine 04/30/2024 7:51 AM SPEAKER MOUNTER LACTIC ACID WHOLE BLOOD Routine 04/30/2024 7:51 AM SPEAKER MOUNTER TSH WITH FREE T4 REFLEX Routine 04/30/2024 7:51 AM SPEAKER MOUNTER LIPID PROFILE Routine 04/30/2024 7:51 AM SPEAKER MOUNTER HEMOGLOBIN A1C Routine 04/30/2024 7:51 AM SPEAKER MOUNTER COMPREHENSIVE METABOLIC PANEL Routine 04/30/2024 7:51 AM SPEAKER MOUNTER EXTRA PURPLE TOP EDTA (LAB USE ONLY) Routine 04/29/2024 6:22 AM SPEAKER MOUNTER PHOSPHORUS Routine 04/29/2024 6:22 AM SPEAKER MOUNTER MAGNESIUM Routine 04/29/2024 6:22 AM SPEAKER MOUNTER POTASSIUM Routine 04/29/2024 6:22 AM SPEAKER MOUNTER PHOSPHORUS Routine 04/28/2024 6:39 AM SPEAKER MOUNTER MAGNESIUM Routine 04/28/2024 6:39 AM SPEAKER MOUNTER CBC WITH PLATELETS Routine 04/28/2024 6: 39 AM SPEAKER MOUNTER BASIC METABOLIC PANEL Routine 04/28/2024 6:39 AM SPEAKER MOUNTER LACTIC ACID WHOLE BLOOD STAT 04/27/2024 7:51 PM SPEAKER MOUNTER INFLUENZA A/B, RSV AND SARS-COV2 PCR STAT 04/27/2024 7:33 PM SPEAKER MOUNTER EKG 12-LEAD, TRACING ONLY STAT 04/27/2024 6:49 PM SPEAKER MOUNTER LACTIC ACID WHOLE BLOOD WITH 1X REPEAT IN 2 HR WHEN >2 STAT 04/27/2024 5:43 PM SPEAKER MOUNTER PHOSPHORUS Add-On 04/27/2024 4:57 PM SPEAKER MOUNTER MAGNESIUM Add-On 04/27/2024 4:57 PM SPEAKER MOUNTER INR STAT 04/27/2024 4:57 PM SPEAKER MOUNTER HEPATIC FUNCTION PANEL STAT 4:57 PM SPEAKER MOUNTER ACETAMINOPHEN LEVEL STAT 04/27/2024 4 :57 PM SPEAKER MOUNTER MR BRAIN W/O CONTRAST STAT 04/27/2024 4:[address] HEAD W/O CONTRAST STAT 04/27/2024 1:14 PM SPEAKER MOUNTER LACTIC ACID WHOLE BLOOD STAT 04/27/2024 12:22 PM SPEAKER MOUNTER INR STAT 04/27/2024 9:35 AM SPEAKER MOUNTER URINE DRUG SCREEN STAT 04/27/2024 9:2 7 AM SPEAKER MOUNTER URINE DRUG SCREEN PANEL STAT 04/27/2024 9:27 AM SPEAKER MOUNTER XR CHEST PORT 1 VIEW STAT 04/27/2024 9:12 AM SPEAKER MOUNTER GLUCOSE BY METER STAT 04/27/2024 9:08 AM SPEAKER MOUNTER ISTAT GASES LACTATE VENOUS POCT STAT 04/27/2024 9:06 AM SPEAKER MOUNTER CBC WITH PLATELETS & DIFFERENTIAL STAT 04/27/2024 9:03 AM SPEAKER MOUNTER HEPATIC FUNCTION PANEL Add-On 9:03 AM SPEAKER MOUNTER ETHYL ALCOHOL LEVEL STAT 04/27/2024 9 :03 AM SPEAKER MOUNTER HCG QUALITATIVE STAT 04/27/2024 9:03 AM SPEAKER MOUNTER ACETAMINOPHEN LEVEL STAT 04/27/2024 9 :03 AM SPEAKER MOUNTER SALICYLATE LEVEL STAT 04/27/2024 9:03 AM SPEAKER MOUNTER EXTRA RED TOP TUBE STAT 04/27/2024 9: 03 AM SPEAKER MOUNTER CBC WITH PLATELETS AND DIFFERENTIAL STAT 04/27/2024 9:03 AM SPEAKER MOUNTER EXTRA TUBE STAT 04/27/2024 9:03 AM SPEAKER MOUNTER TROPONIN T, HIGH SENSITIVITY STAT 04/27/2024 9:03 AM SPEAKER MOUNTER BASIC METABOLIC PANEL STAT 04/27/2024 9:03 AM SPEAKER MOUNTER EKG 12-LEAD, TRACING ONLY STAT 04/27/2024 9:02 AM SPEAKER MOUNTER EKG CARDIAC - HIM SCAN 12:00 AM SPEAKER MOUNTER EKG CARDIAC - HIM SCAN 12:00 AM SPEAKER MOUNTER EKG CARDIAC - HIM SCAN 5 12:00 AM SPEAKER MOUNTER EKG CARDIAC - HIM SCAN 5 12:00 AM SPEAKER MOUNTER MA DIAGNOSTIC BILATERAL W/ SIXTO Routine 12/29/2022 1:16 PM CDT Mass of upper outer quadrant of left breast A PAP THIN LAYER SCREEN Routine 09/14/2018 3:12 PM CDT Screening for cervical cancer HPV HIGH RISK TYPES DNA CERVICAL Routine 09/14/2018 3:12 PM CDT Screening for cervical cancer HEPATITIS C (HIM EXTERNAL RESULT) Routine 05/28/2018 2:31 PM SPEAKER MOUNTER HIV ANTIGEN ANTIBODY COMBO Routine 05/28/2018 ASTHMA CONTROL TEST - HIM SCAN Routine 06/14/2016 1:45 PM CDT ASTHMA ACTION PLAN Routine 06/14/2016 9: 23 AM CDT from Last 3 Months or Most Recently Relevant to Health Maintenance Results * TSH with free T4 reflex and/or T3 as indicated (04/30/2024 7:51 AM SPEAKER MOUNTER) TSH 1.15 0.30 - 4.20 uIU/mL 04/30/2024 8:40 AM SPEAKER MOUNTER UR LABORATORY Blood BLOOD SPECIMEN / Unknown Venipuncture / Unknown 04/30/2024 7:51 AM SPEAKER MOUNTER 04/30/2024 8:06 AM SPEAKER MOUNTER us Adrienne Ledesma APRN HOT MILL OPERATOR LAB - BLOOD ORDER ADÁN Final Result UR LABORATORY [facility] Acute Care Lab [address] [facility] [place] [address] * Phosphorus (04/30/2024 7:51 AM SPEAKER MOUNTER) Only the most recent of4 resultswithin the time period is included. Phosphorus 3.3 2.5 - 4.5 mg/dL 04/30/2024 8:40 AM SPEAKER MOUNTER UR LABORATORY Blood BLOOD SPECIMEN / Unknown Venipuncture / Unknown 04/30/2024 7:51 AM SPEAKER MOUNTER 04/30/2024 8:06 AM SPEAKER MOUNTER Adrienne Ledesma APRN HOT MILL OPERATOR LAB - BLOOD ORDER ADÁN Final Result UR LABORATORY [facility] Care Lab [address] [facility] [place] [address] * (ABNORMAL) Lipid panel (04/30/2024 7:51 AM SPEAKER MOUNTER) Cholesterol 238(H) <200 mg/dL 04/30/2024 8:40 AM SPEAKER MOUNTER UR LABORATORY Triglycerides 245(H) <150 mg/dL 04/30/2024 8:40 AM SPEAKER MOUNTER UR LABORATORY Direct Measure HDL 43(L) >=50 mg/dL 04/30/2024 8:40 AM SPEAKER MOUNTER UR LABORATORY LDL Cholesterol Calculated 146(H) <100 mg/dL 04/30/2024 8:40 AM SPEAKER MOUNTER UR LABORATORY Non HDL Cholesterol 195(H) <130 mg/dL 04/30/2024 8:40 AM SPEAKER MOUNTER UR LABORATORY Blood BLOOD SPECIMEN / Unknown Venipuncture / Unknown 04/30/2024 7:51 AM SPEAKER MOUNTER 04/30/2024 8:06 AM SPEAKER MOUNTER Narrative UR LABORATORY - 04/30/2024 8:40 AM SPEAKER MOUNTER Cholesterol Desirable: < 200 mg/dL Borderline High: [...] BLOOD ORDER ADÁN Final Result UR LABORATORY [facility] Lab [address] [place] [address], Room [address] [phone] * Lactic acid whole blood (04/30/2024 7:51 AM SPEAKER MOUNTER) Only the most recent of3 resultswithin the time period is included. Pathologist [facility] Lactic Acid 1.3 0.7 - 2.0 mmol/L 04/30/2024 8:06 AM SPEAKER MOUNTER UR LABORATORY Blood BLOOD SPECIMEN / Unknown Venipuncture / Unknown 04/30/2024 7:51 AM SPEAKER MOUNTER 04/30/2024 8:04 AM SPEAKER MOUNTER us Adrienne Ledesma APRN, CNP LAB - BLOOD ORDER ADÁN Final Result Performing Organization Address City/[facility]/ZIP Co de Phone Number UR LABORATORY [facility] Lab [address] [place] [address], Room [address] [phone] * Hemoglobin A1c (04/30/2024 7:51 AM SPEAKER MOUNTER) [facility] Estimated Average Glucose 100 <117 mg/dL 04/30/2024 8:23 AM SPEAKER MOUNTER UR LABORATORY Hemoglobin A1C 5.1 <5.7 % 04/30/2024 8:23 AM SPEAKER MOUNTER UR LABORATORY Comment: Normal <5.7% Prediabetes 5.7-6.4% Diabetes 6.5% or higher Note: Adopted from ADA consensus guidelines. Blood BLOOD SPECIMEN / Unknown Venipuncture / Unknown 04/30/2024 7:51 AM SPEAKER MOUNTER 04/30/2024 8:06 AM SPEAKER MOUNTER us Adrienne Ledesma APRN, CNP LAB - BLOOD ORDER ADÁN Final Result UR LABORATORY [facility] Lab [address] [place] [address], [address] [phone] * Comprehensive metabolic panel (04/30/2024 7:51 AM SPEAKER MOUNTER) Sodium 140 135 - 145 mmol/L 04/30/2024 8:40 AM SPEAKER MOUNTER UR LABORATORY Potassium 3.8 3.4 - 5.3 mmol/L 04/30/2024 8:40 AM SPEAKER MOUNTER UR LABORATORY Carbon Dioxide (CO2) 24 22 - 29 mmol/L 04/30/2024 8:40 AM SPEAKER MOUNTER UR LABORATORY Anion Gap 12 7 - 15 mmol/L 04/30/2024 8:40 AM SPEAKER MOUNTER UR LABORATORY Urea Nitrogen 7.9 6.0 - 20.0 mg/dL 04/30/2024 8:40 AM SPEAKER MOUNTER UR LABORATORY Creatinine 0.79 0.51 - 0.95 mg/dL 04/30/2024 8:40 AM SPEAKER MOUNTER UR LABORATORY GFR Estimate >90 >60 mL/min/1.7 3m2 04/30/2024 8:40 AM SPEAKER MOUNTER UR LABORATORY Comment:eGFR calculated usin 2020 CKD-EPI equation. Calcium 9.8 8.8 - 10.4 mg/dL 04/30/2024 8:40 AM SPEAKER MOUNTER UR LABORATORY Comment:Reference intervals for this test were updated on 10/17/2023 to reflect our healthy population more accurately. There may be differences in the flagging of prior results with similar values performed with this method. Those prior results can be interpreted in the context of the updated reference intervals. Chloride 104 98 - 107 mmol/L 04/30/2024 8:40 AM SPEAKER MOUNTER UR LABORATORY Glucose 98 70 - 99 mg/dL 04/30/2024 8:40 AM SPEAKER MOUNTER UR LABORATORY Alkaline Phosphatase 65 40 - 150 U/L 04/30/2024 8:40 AM SPEAKER MOUNTER UR LABORATORY AST 20 0 - 45 U/L 04/30/2024 8:40 AM SPEAKER MOUNTER UR LABORATORY ALT 20 0 - 50 U/L 04/30/2024 8:40 AM SPEAKER MOUNTER UR LABORATORY Protein Total 7.4 6.4 - 8.3 g/dL 04/30/2024 8:40 AM SPEAKER MOUNTER UR LABORATORY Albumin 4.4 3.5 - 5.2 g/dL 04/30/2024 8:40 AM SPEAKER MOUNTER UR LABORATORY Bilirubin Total 0.7 <=1.2 mg/dL 04/30/2024 8:40 AM SPEAKER MOUNTER UR LABORATORY Blood BLOOD SPECIMEN / Unknown Venipuncture / Unknown 04/30/2024 7:51 AM SPEAKER MOUNTER 04/30/2024 8:06 AM SPEAKER MOUNTER us Adrienne Ledesma APRN, CNP LAB - BLOOD ORDER ADÁN Final Result LABORATORY [facility] Lab [address] [facility], [address] [place] [address] * Extra Purple Top EDTA (LAB USE ONLY) (04/29/2024 6:22 AM SPEAKER MOUNTER) Hold Specimen JIC 04/29/2024 7:46 AM SPEAKER MOUNTER LABORATORY Blood STRUCTURE OF RIGHT HAND / Unknown Venipuncture / Unknown 04/29/2024 6:22 AM SPEAKER MOUNTER 04/29/2024 6:40 AM SPEAKER MOUNTER us Puma Rodriges MD LAB - BLOOD ORDERABLES Final Result [facility] Acute Care Lab [address] Lab (1st floor, no room number) [place] [phone] * Potassium (04/29/2024 6:22 AM SPEAKER MOUNTER) Potassium 3.6 3.4 - 5.3 mmol/L 04/29/2024 7:03 AM SPEAKER MOUNTER LABORATORY Blood STRUCTURE OF RIGHT HAND / Unknown Venipuncture / Unknown 04/29/2024 6:22 AM SPEAKER MOUNTER 04/29/2024 6:40 AM SPEAKER MOUNTER us Jose Leal MD LAB - BLOOD ORDERA BLES Final Result [facility] Acute Care Lab [address] Lab (1st floor, no room number) [place] [phone] * Magnesium (04/29/2024 6:22 AM SPEAKER MOUNTER) Only the most recent of3 resultswithin the time period is included. Magnesium 1.8 1.7 - 2.3 mg/dL 04/29/2024 7:03 AM [facility] LABORATORY Blood STRUCTURE OF RIGHT HAND / Unknown Venipuncture / Unknown 04/29/2024 6:22 AM SPEAKER MOUNTER 04/29/2024 6:40 AM SPEAKER MOUNTER Jose Leal MD LAB - BLOOD ORDERA BLES Final Result LABORATORY [facility] Acute Care Lab [address] Lab (1st floor, no room number) [place] [address] * (ABNORMAL) Basic metabolic panel (04/28/2024 6:39 AM SPEAKER MOUNTER) Only the most recent of2 resultswithin the time period is included. Sodium 139 135 - 145 mmol/L 04/28/2024 7:33 AM [facility] LABORATORY Potassium 3.6 3.4 - 5.3 mmol/L 04/28/2024 7:33 AM [facility] LABORATORY Chloride 104 98 - 107 mmol/L 04/28/2024 7:33 AM [facility] LABORATORY Carbon Dioxide (CO2) 21(L) 22 - 29 mmol/L 04/28/2024 7:33 AM [facility] LABORATORY Anion Gap 14 7 - 15 mmol/L 04/28/2024 7:33 AM [facility] LABORATORY Urea Nitrogen 12.0 6.0 - 20.0 mg/dL 04/28/2024 7:33 AM [facility] LABORATORY Creatinine 0.89 0.51 - 0.95 mg/dL 04/28/2024 7:33 AM [facility] LABORATORY GFR Estimate 79 >60 mL/min/1.7 3m2 04/28/2024 7:33 AM [facility] LABORATORY Comment:eGFR calculated us2020 CKD-EPI equation. Calcium 8.9 8.8 - 10.4 mg/dL 04/28/2024 7:33 AM [facility] LABORATORY Comment:Reference intervals for this test were updated on 10/17/2023 to reflect our healthy population more accurately. There may be differences in the flagging of prior results with similar values performed with this method. Those prior results can be interpreted in the context of the updated reference intervals. Glucose 80 70 - 99 mg/dL 04/28/2024 7:33 AM SPEAKER MOUNTER [facility] LABORATORY Blood STRUCTURE OF RIGHT UPPER LIMB / Unknown Venipuncture / Unknown 04/28/2024 6:39 AM SPEAKER MOUNTER 04/28/2024 7:07 AM SPEAKER MOUNTER us Puma Rodriges MD LAB - BLOOD ORDERABLES Final Result [facility] LABORATORY [facility] Acute Care Lab [address] Lab (1st floor, no room number) [place] [address] * CBC with platelets (04/28/2024 6:39 AM SPEAKER MOUNTER) WBC Count 10.9 4.0 - 11.0 10e3/uL 04/28/2024 7:38 AM SPEAKER MOUNTER [facility] LAB[facility]ATORY RBC Count 3.98 3.80 - 5.20 10e6/uL 04/28/2024 7:38 AM SPEAKER MOUNTER [facility] Hemoglobin 12.4 11.7 - 15.7 g/dL 04/28/2024 7:38 AM SPEAKER MOUNTER [facility] LAB[facility] Hematocrit 36.0 35.0 - 47.0 % 04/28/2024 7:38 AM SPEAKER MOUNTER [facility] LAB[facility]ORY MCV 91 78 - 100 fL 04/28/2024 7:38 AM SPEAKER MOUNTER [facility] LAB[facility] MCH 31.2 26.5 - 33.0 pg 04/28/2024 7:38 AM SPEAKER MOUNTER [facility] LAB[facility]ATORY MCHC 34.4 31.5 - 36.5 g/dL 04/28/2024 7:38 AM SPEAKER MOUNTER [facility] LAB[facility] RDW 12.0 10.0 - 15.0 % 04/28/2024 7:38 AM SPEAKER MOUNTER [facility] LAB[facility] Platelet Count 262 150 - 450 10e3/uL 04/28/2024 7:38 AM SPEAKER MOUNTER [facility] LAB[facility] Blood STRUCTURE OF RIGHT UPPER LIMB / Unknown Venipuncture / Unknown 04/28/2024 6:39 AM SPEAKER MOUNTER 04/28/2024 7:07 AM SPEAKER MOUNTER us Puma Rodriges MD LAB - BLOOD ORDERABLES Final Result [facility] LABORATORY [facility] Lab [address] Lab (1st floor, no room number) [place] [address] * Influenza A/B, RSV and SARS-CoV2 PCR (COVID-19) Nasopharyngeal (04/27/2024 7:33 PM SPEAKER MOUNTER) Influenza A PCR Negative Negative 04/27/2024 8:24 PM SPEAKER MOUNTER [facility] LAB[facility]ATORY Influenza B PCR Negative Negative 04/27/2024 8:24 PM SPEAKER MOUNTER [facility] LAB[facility]ATORY RSV PCR Negative Negative 04/27/2024 8:24 PM SPEAKER MOUNTER [facility] LAB[facility]ATORY SARS CoV2 PCR Negative Negative 04/27/2024 8:24 PM SPEAKER MOUNTER [facility] LABORATORY Comment:NEGATIVE: SARS-CoV-2 (COVID-19) RNA not detected, presumed negative. Swab NASOPHARYNGEAL STRUCTURE / Unknown Non-blood Collection / Unknown 04/27/2024 7:33 PM SPEAKER MOUNTER 04/27/2024 7:37 PM SPEAKER MOUNTER [facility] LABORATORY - 04/27/2024 8:24 PM SPEAKER MOUNTER Testing was performed using the Xpert Xpress CoV2/Flu/RSV Assay on the Cloud9 IDE GeneXpert Instrument. This test should be ordered [...] management. This test was validated by the [facility] C-sam. These laboratories are certified under the Clinical Laboratory Improvement Amendments of 1988 (CLIA-88) as qualified to perfom high complexity laboratory testing. us Puma Rodriges MD LAB - MICRO GENERAL ORDERABLE S Final Result LABORATORY [facility] Acute Care Lab [address] Lab (1st floor, no room number) [place] [address], [facility] * EKG 12 lead (04/27/2024 6:49 PM SPEAKER MOUNTER) Only the most recent of2 resultswithin the time period is included. Systolic Blood Pressure mmHg RADIOLOGY RESULTS Diastolic Blood Pressure mmHg RADIOLOGY RESULTS Ventricular Rate 83 BPM RAD IOLOGY RESULTS Atrial Rate 83 BPM RADIOLOG Y RESULTS NH Interval 162 ms RADIOLOG Y RESULTS QRS Duration 74 ms RADIOLO GY RESULTS QT 388 ms RADIOLOGY RESULTS QTc 455 ms RADIOLOGY RESULTS P Tiona 63 degrees RADIOLOGY RESULTS R AXIS -3 degrees RADIOLOGY RESULTS T Tiona -7 degrees RADIOLOGY RESULTS Interpretation ECG Sinus rhythm Nonspecific T wave abnormality Abnormal ECG When compared with ECG of 27-Apr-2024 09:02, (unconfirmed) No significant change was found Unconfirmed report - interpretation of this ECG is computer generated - see medical record for final interpretation Confirmed by - EMERGENCY ROOM, PHYSICIAN ([id number]), scientific editor MALIK MCFADDEN ([id number]) on 04/29/2024 7:08:57 AM RADIOLOGY RESULTS 04/27/2024 6:49 PM SPEAKER MOUNTER 04/29/2024 7:08 AM SPEAKER MOUNTER us Taty Verdugo MD ECG ORDERABLES Edited R esult - Final RADIOLOGY RESULTS * (ABNORMAL) Lactic Acid Whole Blood with 1X Repeat in 2 HR when >2 (04/27/2024 5:43 PM SPEAKER MOUNTER) Lactic Acid, Initial 3.3(H) 0.7 - 2.0 mmol/L 04/27/2024 6:06 PM SPEAKER MOUNTER LABORATORY Blood STRUCTURE OF LEFT UPPER LIMB / Unknown Venipuncture / Unknown 04/27/2024 5:43 PM SPEAKER MOUNTER 04/27/2024 5:48 PM SPEAKER MOUNTER Linda Phillips MD LAB - BLOOD ORDERABLES F inal Result [facility] LABORATORY [facility] Lab [address] Lab (1st floor, no room number) [place] [address], [facility] * INR (04/27/2024 4:57 PM SPEAKER MOUNTER) Only the most recent of2 resultswithin the time period is included. INR 1.03 0.85 - 1.15 04/27/2024 5:32 PM SPEAKER MOUNTER [facility] LABORATORY Blood BLOOD SPECIMEN / Unknown Venipuncture / Unknown 04/27/2024 4:57 PM SPEAKER MOUNTER 04/27/2024 5:15 PM SPEAKER MOUNTER Taty Verdugo MD LAB - BLOOD ORDERABLES F inal Result LABORATORY [facility] Lab [address] Lab (1st floor, no room number) [place] [address] * Hepatic panel (04/27/2024 4:57 PM SPEAKER MOUNTER) Only the most recent of2 resultswithin the time period is included. Protein Total 7.5 6.4 - 8.3 g/dL 04/27/2024 5:53 PM SPEAKER MOUNTER [facility] LABORATORY Albumin 4.6 3.5 - 5.2 g/dL 04/27/2024 5:53 PM SPEAKER MOUNTER [facility] LABORATORY Bilirubin Total 0.3 <=1.2 mg/dL 04/27/2024 5:53 PM SPEAKER MOUNTER [facility] LABORATORY Alkaline Phosphatase 69 40 - 150 U/L 04/27/2024 5:53 PM SPEAKER MOUNTER [facility] LABORATORY AST 21 0 - 45 U/L 04/27/2024 5:53 PM SPEAKER MOUNTER LABORATORY ALT 18 0 - 50 U/L 04/27/2024 5:53 PM SPEAKER MOUNTER LABORATORY Bilirubin Direct <0.20 0.00 - 0.30 mg/dL 04/27/2024 5:53 PM SPEAKER MOUNTER [facility] LABORATORY Blood BLOOD SPECIMEN / Unknown Venipuncture / Unknown 04/27/2024 4:57 PM SPEAKER MOUNTER 04/27/2024 5:15 PM SPEAKER MOUNTER Taty Verdugo MD LAB - BLOOD ORDERABLES F inal Result LABORATORY [facility] [address] Lab (1st floor, no room number) [place] [address] * (ABNORMAL) Acetaminophen level (04/27/2024 4:57 PM SPEAKER MOUNTER) Only the most recent of2 resultswithin the time period is included. Acetaminophen <5.0(L) 10.0 - 30.0 ug/mL 04/27/2024 6:22 PM SPEAKER MOUNTER LABORATORY Blood BLOOD SPECIMEN / Unknown Venipuncture / Unknown 04/27/2024 4:57 PM SPEAKER MOUNTER 04/27/2024 5:15 PM SPEAKER MOUNTER us Taty Verdugo MD LAB - BLOOD ORDERABLES F inal Result [facility] Acute Care Lab [address] Lab (1st floor, no room number) [place] [address] * MR Brain w/o Contrast (04/27/2024 4:14 PM SPEAKER MOUNTER) Anatomical Region Laterality Modality Head, SUBRAD MR NEURO, UMP MR NEURO, RAD MR Magnetic Resonance 04/27/2024 4:14 PM SPEAKER MOUNTER Impressions 04/27/2024 4:25 PM SPEAKER MOUNTER IMPRESSION: 1. Negative for acute intracranial abnormality. 2. Nonspecific 1 cm T2 hyperintense left parotid nodule. Recommend further evaluation with nonemergent ENT consultation. Narrative 04/27/2024 4:25 PM SPEAKER MOUNTER EXAM: MR BRAIN W/O CONTRAST LOCATION: [facility] DATE: 04/27/2024 INDICATION: possible cerebral edema on [...] 04/27/2024 EXAM: MR BRAIN W/O CONTRAST LOCATION: [facility] DATE: 04/27/2024 INDICATION: possible cerebral edema on [...] flow voids are maintained. Nonspecific 1 cm [id number] nodule at the deep lobe of left parotid gland. ORBITS: No abnormality accounting for technique. SINUSES/MASTOIDS: No paranasal sinus mucosal disease. No middle ear ormastoid effusion. IMPRESSION: 1. Negative for acute intracranial abnormality. 2. Nonspecific 1 cm T2 hyperintense left parotid nodule. Recommendfurther evaluation with nonemergent ENT consultation. Taty Verdugo MD [facility] [place] [facility] ORDER[facility]LES Final Result * Head CT w/o contrast (04/27/2024 1:14 PM SPEAKER MOUNTER) Anatomical Region Laterality Modality Head, SUBRAD CT NEURO, SUBRA D CT NEURO, UMP CT NEURO, RAD CT Computed Tomography 04/27/2024 1:14 PM SPEAKER MOUNTER Addenda Addendum by Jaspreet Hankins MD on 04/27/2024 1:45 PM SPEAKER MOUNTER Findings were discussed with Dr. Verdugo by Dr. Hankins at 1:44 PM SPEAKER MOUNTER on 04/27/2024. Impressions 04/27/2024 1:39 PM SPEAKER MOUNTER IMPRESSION: 1. Questionable hazy gatica-white matter differentiation and cerebral sulcal effacement, most pronounced in the left frontal lobe could suggest cerebral edema. Recommend brain MRI to further evaluate. 2. No CT evidence for intracranial hemorrhage. 3. Partially empty sella. Communication pending. Narrative 04/27/2024 1:39 PM SPEAKER MOUNTER EXAM: CT HEAD W/O CONTRAST LOCATION: [facility] DATE: 04/27/2024 INDICATION: Altered mental status COMPARISON: [...] 04/27/2024 EXAM: CT HEAD W/O CONTRAST LOCATION: [facility] DATE: 04/27/2024 INDICATION: Altered mental status COMPARISON: [...] 3. Partially empty sella. Communication pending. Taty Verduog MD [facility] [place] ORDERABLES Edited Result - Final * (ABNORMAL) Urine Drug Screen Panel (04/27/2024 9:27 AM [facility]) Amphetamines Urine Screen Positive(A) Screen Negative 04/27/2024 10:07 AM [facility] Comment: Cutoff for a positive amphetamine is 500 ng/mL or greater. This is an unconfirmed screening result to be used for medical purposes only. Barbituates Urine Screen Negative Screen Negative 04/27/2024 10:07 AM [facility] Comment:Cutoff for a negativ e barbiturate is less than 200 ng/mL. Benzodiazepine Urine Screen Negative Screen Negative 04/27/2024 10:07 AM [facility] Comment:Cutoff for a negativ e benzodiazepine is less than 100 ng/mL. Cannabinoids Urine Screen Positive(A) Screen Negative 04/27/2024 10:07 AM [facility] Comment: Cutoff for a positive cannabinoid is 50 ng/mL or greater. This is an unconfirmed screening result to be used for medical purposes only. Cocaine Urine Screen Negative Screen Negative 04/27/2024 10:07 AM [facility] Comment:Cutoff for a negativ e cocaine is less than 300 ng/mL. Fentanyl Qual Urine Screen Negative Screen Negative 04/27/2024 10:07 AM [facility] Comment:Cutoff for negative fentanyl is less than 5 ng/mL. Opiates Urine Screen Negative Screen Negative 04/27/2024 10:07 AM [facility] Comment:Cutoff for a negativ e opiate is less than 300 ng/mL. PCP Urine Screen Negative Screen Negative 04/27/2024 10:07 AM [facility] Comment:Cutoff for a negativ e PCP is less than 25 ng/mL. Urine URINE SPECIMEN FROM URINARY CONDUIT / Unknown Non-blood Collection / Unknown 04/27/2024 9:27 AM SPEAKER MOUNTER 04/27/2024 9:33 AM [facility] Taty Verdugo MD LAB - URINE ORDERABLES F inal Result LABORATORY [facility] Lab [address] [facility] [facility] Lab (1st floor, no room number) [place] [address], [facility] * XR Chest Port 1 View (04/27/2024 9:12 AM SPEAKER MOUNTER) Anatomical Region Laterality Modality Chest Digital Radiogra phy 04/27/2024 9:12 AM SPEAKER MOUNTER Impressions 04/27/2024 9:15 AM SPEAKER MOUNTER IMPRESSION: Lungs are clear. No effusions or pneumothorax. Heart size is normal. Cholecystectomy. Mild nonspecific gaseous distention of the visualized bowel in the upper abdomen. Narrative 04/27/2024 9:15 AM SPEAKER MOUNTER EXAM: XR CHEST PORT 1 VIEW LOCATION: [facility] DATE: 04/27/2024 INDICATION: drug overdose COMPARISON: 10/11/2019 Procedure Note Kev Saldana MD - 04/27/2024 EXAM: XR CHEST PORT 1 VIEW LOCATION: [facility] DATE: 04/27/2024 INDICATION: drug overdose COMPARISON: 10/11/2019 IMPRESSION: Lungs are clear. No effusions or pneumothorax. Heart size isnormal. Cholecystectomy. Mild nonspecific gaseous distention of thevisualized bowel in the upper abdomen. Taty Verdugo MD IMG DIAGNOSTIC IMAGING O RDERABLES Final Result * (ABNORMAL) Glucose by meter (04/27/2024 9:08 AM SPEAKER MOUNTER) GLUCOSE BY METER POCT 169(H) 70 - 99 mg/dL 04/27/2024 9:15 AM SPEAKER MOUNTER LABORATORY POC Blood, Capillary BLOOD SPECIMEN / Unknown 04/27/2024 9:08 AM SPEAKER MOUNTER 04/27/2024 9:15 AM SPEAKER MOUNTER Taty Verdugo MD LAB - BEAKER POCT Final Result LABORATORY [facility] Acute Care Lab [address] Lab (1st floor, no room number) [place] [address], [facility] * (ABNORMAL) iStat Gases (lactate) venous, POCT (04/27/2024 9:06 AM SPEAKER MOUNTER) Lactic Acid POCT 2.8(H) <=2.0 mmol/L 04/27/2024 9:11 AM SPEAKER MOUNTER [facility] POC Bicarbonate Venous POCT 22 21 - 28 mmol/L 04/27/2024 9:11 AM SPEAKER MOUNTER [facility] POC O2 Sat, Venous POCT 93(H) 70 - 75 % 04/27/2024 9:11 AM SPEAKER MOUNTER [facility] POC pCO2 Venous POCT 39(L) 40 - 50 mm Hg 04/27/2024 9:11 AM SPEAKER MOUNTER [facility] POC pH Venous POCT 7.37 7.32 - 7.43 04/27/2024 9:11 AM SPEAKER MOUNTER [facility] POC pO2 Venous POCT 70(H) 25 - 47 mm Hg 04/27/2024 9:11 AM SPEAKER MOUNTER [facility] POC Blood, venous BLOOD SPECIMEN / Unknown 04/27/2024 9:06 AM SPEAKER MOUNTER 04/27/2024 9:11 AM SPEAKER MOUNTER Taty Verdugo MD LAB - BEAKER POCT Final Result LABORATORY [facility] Lab [address] Lab (1st floor, no room number) [address] * Extra Red Top Tube (04/27/2024 9:03 AM SPEAKER MOUNTER) Pathologist [facility] Hold Specimen [facility] 04/27/2024 10:31 AM SPEAKER MOUNTER LABORATORY Blood BLOOD SPECIMEN / Unknown Venipuncture / Unknown 04/27/2024 9:03 AM SPEAKER MOUNTER 04/27/2024 9:16 AM SPEAKER MOUNTER Taty Verdugo MD LAB - BLOOD ORDERABLES F inal Result [facility] Lab [address] Lab (1st floor, no room number) [address] * (ABNORMAL) CBC with platelets and differential (04/27/2024 9:03 AM SPEAKER MOUNTER) WBC Count 13.4(H) 4.0 - 11.0 10e3/uL 04/27/2024 9:21 AM SPEAKER MOUNTER [facility] RBC Count 4.90 3.80 - 5.20 10e6/uL 04/27/2024 9:21 AM SPEAKER MOUNTER [facility] Hemoglobin 15.5 11.7 - 15.7 g/dL 04/27/2024 9:21 AM SPEAKER MOUNTER [facility] Hematocrit 44.4 35.0 - 47.0 % 04/27/2024 9:21 AM SPEAKER MOUNTER [facility] MCV 91 78 - 100 fL 04/27/2024 9:21 AM SPEAKER MOUNTER [facility] MCH 31.6 26.5 - 33.0 pg 04/27/2024 9:21 AM SPEAKER MOUNTER [facility] MCHC 34.9 31.5 - 36.5 g/dL 04/27/2024 9:21 AM SPEAKER MOUNTER [facility] RDW 12.0 10.0 - 15.0 % 04/27/2024 9:21 AM SPEAKER MOUNTER [facility] Platelet Count 324 150 - 450 10e3/uL 04/27/2024 9:21 AM SPEAKER MOUNTER [facility] % Neutrophils 60 % 04/27/2024 9:21 AM SPEAKER MOUNTER [facility] % Lymphocytes 29 % 04/27/2024 9:21 AM SPEAKER MOUNTER [facility] % Monocytes 9 % 04/27/2024 9:21 AM SPEAKER MOUNTER [facility] % Eosinophils 2 % 04/27/2024 9:21 AM SPEAKER MOUNTER [facility] % Basophils 0 % 04/27/2024 9:21 AM SPEAKER MOUNTER [facility] % Immature Granulocytes 0 % 04/27/2024 9:21 AM SPEAKER MOUNTER [facility] NRBCs per 100 WBC 0 <1 /100 025 9:21 AM SPEAKER MOUNTER [facility] Absolute Neutrophils 8.0 1.6 - 8.3 10e3/uL 04/27/2024 9:21 AM SPEAKER MOUNTER [facility] Absolute Lymphocytes 3.9 0.8 - 5.3 10e3/uL 04/27/2024 9:21 AM SPEAKER MOUNTER [facility] Absolute Monocytes 1.1 0.0 - 1.3 10e3/uL 04/27/2024 9:21 AM SPEAKER MOUNTER [facility] Absolute Eosinophils 0.3 0.0 - 0.7 10e3/uL 04/27/2024 9:21 AM SPEAKER MOUNTER [facility] Absolute Basophils 0.1 0.0 - 0.2 10e3/uL 04/27/2024 9:21 AM SPEAKER MOUNTER [facility] Absolute Immature Granulocytes 0.1 <=0.4 10e3/uL 04/27/2024 9:21 AM SPEAKER MOUNTER LABORATORY Absolute NRBCs 0.0 10e3/uL 04/27/2024 9:21 AM SPEAKER MOUNTER LABORATORY Blood BLOOD SPECIMEN / Unknown Venipuncture / Unknown 04/27/2024 9:03 AM SPEAKER MOUNTER 04/27/2024 9:16 AM SPEAKER MOUNTER Taty Verdugo MD LAB - BLOOD ORDERABLES F inal Result [facility] Lab [address] Lab (1st floor, no room number) [place] [address], [facility] * Troponin T, High Sensitivity (04/27/2024 9:03 AM SPEAKER MOUNTER) [facility] Troponin T, High Sensitivity <6 <=14 ng/L 04/27/2024 9:38 AM SPEAKER MOUNTER LABORATORY Comment: Either a High Sensitivity Troponin [...] Unknown Venipuncture / Unknown 04/27/2024 9:03 AM SPEAKER MOUNTER 04/27/2024 9:16 AM SPEAKER MOUNTER Taty Verdugo MD LAB - BLOOD ORDERABLES F inal Result [facility] Acute Care Lab [address] Lab (1st floor, no room number) [place] [address], [facility] * Salicylate level (04/27/2024 9:03 AM SPEAKER MOUNTER) Salicylate <0.3 mg/dL 04/27/2024 10:35 AM SPEAKER MOUNTER [facility] Comment: Salicylate Reference Range Therapeutic: 3-10 mg/dL Anti inflammatory: 15-30 mg/dL Blood BLOOD SPECIMEN / Unknown Venipuncture / Unknown 04/27/2024 9:03 AM SPEAKER MOUNTER 04/27/2024 9:16 AM SPEAKER MOUNTER Taty Verdugo MD LAB - BLOOD ORDERABLES F inal Result [facility] Lab [address] Lab (1st floor, no room number) [address] * HCG QUALitative (blood) (04/27/2024 9:03 AM SPEAKER MOUNTER) Pathologist [facility] hCG Serum Qualitative Negative Negative MARTHA 04/27/2024 10:19 AM SPEAKER MOUNTER [facility] Comment:This test is for scr eening purposes. Results should be interpreted along with the clinical picture. Confirmation testing is available if warranted by ordering [id number], HCG Quantitative . Blood BLOOD SPECIMEN / Unknown Venipuncture / Unknown 04/27/2024 9:03 AM SPEAKER MOUNTER 04/27/2024 9:16 AM SPEAKER MOUNTER Taty Verdugo MD LAB - BLOOD ORDERABLES F inal Result [facility] Lab [address] Lab (1st floor, no room number) [address] * (ABNORMAL) Alcohol level blood (04/27/2024 9:03 AM SPEAKER MOUNTER) Alcohol ethyl 0.30(H) <=0.01 g/dL 04/27/2024 11:06 AM SPEAKER MOUNTER [facility] LAB[facility]AT[facility] Blood BLOOD SPECIMEN / Unknown Venipuncture / Unknown 04/27/2024 9:03 AM SPEAKER MOUNTER 04/27/2024 9:16 AM SPEAKER MOUNTER Taty Verdugo MD LAB - BLOOD ORDERABLES F inal Result [facility] Acute Care Lab [address] [facility] Lab (1st floor, no room number) [place] [address], [facility] * EKG Cardiac - HIM Scan (04/27/2024 12:00 AM SPEAKER MOUNTER) Only the most recent of4 resultswithin the [...] Lawson Report Patient Name: SEEMA CORDERO MR#: [id number] Specimen #: [id number] Collected: 09/14/2018 Received: 09/18/2018 Reported: 09/24/2018 14:24 [...] adenocarcinomas or other cancers. COLLECTION SITE: Client: [facility] Location: [facility] (B) The technical component of this testing was completed at the [facility], with the professional component performed at the [facility], [address] [place] [id number] ([phone]) COPATH Cytologic material (specimen) 09/14/2018 3:12 PM CDT 09/18/2018 8:30 AM CDT us Marina Alejandro NP LAB - OPTIME CLINICAL SPECIMEN F inal Result COPATH * HPV High Risk Types DNA Cervical (09/14/2018 3:12 PM CDT) HPV Source [facility] 09/14/2018 3:12 PM CDT [facility] HPV 16 DNA Negative NEG^Nega tive 09/25/2018 12:34 PM CDT [facility] HPV 18 DNA Negative NEG^Nega tive 09/25/2018 12:34 PM CDT [facility] Other HR HPV Negative NEG^Nega tive 09/25/2018 12:34 PM CDT [facility] Final Diagnosis This patient's sample is negative for HPV DNA. 09/25/2018 12:34 PM CDT [facility] Comment: This test was developed and its performance characteristics determined by the [facility], Molecular Diagnostics Laboratory. It has [...] Description Cervical Cells 09/14/2018 3:12 PM CDT [facility] Comment:[id number] Cervical Cells CERVIX UTERI STRUCTURE / Unknown 09/14/2018 3:12 PM CDT 09/17/2018 10:55 AM CDT us Marina Alejandro CONCRETE BUCKET UNLOADER LAB - BLOOD ORDERABLES Final Res ult [facility] [address] [place] [address] [facility] [address] [place], [place] [address] [phone] * Hepatitis C (HIM External Result) (05/28/2018 2:31 PM SPEAKER MOUNTER) Hep C HIM See Scanned Document [facility] 05/28/2018 2:31 PM SPEAKER MOUNTER Narrative [facility] - 05/28/2018 2:31 PM SPEAKER MOUNTER See [facility] us Provider Outside LAB - HIM EXTERNAL RESULT Final Result Performing Organization Address [facility] [place] [address], [facility] [phone] * HIV Antigen Antibody Combo (05/28/2018) HIV Antigen Antibody Combo Nonreactive Nonreactive [facility] Comment:HIV Screen includes testing for HIV-1 antigen and antibodies to both HIV-1 and HIV-2. Blood specimen (specimen) 05/28/2018 Narrative [facility] - 05/28/2018 See [facility]. us Provider Outside LAB - BLOOD ORDERABLES Final Re sult Performing Organization Address City/[facility]/ZIP Co de Phone Number [address] [address], [facility] [phone] from Last 3 Months or Most Recently Relevant to Health Maintenance Insurance [facility] RISK MANAGEMENT Advance Directives For more information, please contact: [phone] * Full Code (Latest Code Status on [...] kevone nt/ legal decision maker Care Teams Kiln Feeder Relationship Specialty Start Date End Date Terence Smyth MD [facility] [address] [place] [address] PCP - General Family Medicine 04/27/24 Alma Valencia, PT [address] [place] [address] [address] [place], [place] [address] Specialty Patient Relations Liaison Physical Medicine and Rehabilitation 02/12/19 Leonor Draper MD [address] [place] [address] Physical Medicine and Rehabilitation 02/12/19 Jerri Fink RN RETIRED [place], [place] [id number] Specialty Patient Relations Liaison Physical Medicine and Rehabilitation 02/12/19 Rahul Orourke MD [address] [place] [id number] Assigned Surgical Provider 02/04/23 Bina Chen HOT MILL OPERATOR [address] [place] [address] Assigned PCP 05/26/24
[2024-06-14 18:17] VITALS: BP 134/90; PULSE 100; RESP 14; O2SAT 98
== END 2024-06-14 18:38 | disposition home or self-care (01) ==
PROVIDERS: Emergency Provider Family Medicine; PCP Family Medicine
DX: N99.820 Postprocedural hemorrhage of a genitourinary system organ or structure following a genitourinary system procedure (principal)
CPT/HCPCS: 36415; 74177; 80048; 85025; 99284; 99285; Q9967

== ENCOUNTER 2024-08-10 12:54 | Emergency (ER) | payer BC, SELFPAY ==
[2024-08-10 12:56] VITALS: BP 158/105; PULSE 98; RESP 18; TEMP 36.9; O2SAT 96; BMI 29.2
--- OUTSIDE RECORDS SUMMARY | 2024-08-10 12:56 | XMS_ITS | Encounter Summary ---
Author Organization [facility] Address [address] [place] [address] Care Team Providers Care Lead Engineer Name Role Phone Alma Valencia Tyler PT Unavailable [phone] Leonor Draper MD Unavailable + [phone] Jerri Fink RN Unavailable + [phone] Theresa Carpio MD Unavailable [phone] Rahul Orourke MD Unavailable [phone] Terence Smyth MD Primary Care Provider [phone] Bina Chen ADMINISTRATIVE OFFICE MANAGER Unavailable [phone] Reason for Visit * Reason Onset Date Comments MH/CD Inpatient 04/29/2024 Encounter Details Date Type Department Care Team (Late st Contact Info) Description 04/29/2024 Telephone [facility] Intake [address] [place] [address] Generic, Behavioral Intake, MH/CD Inpatient Social History Tobacco Use Types [...] permanent housing and does not include staying outside in a car, in a tent, in an abandoned building, in an overnight halfway, or couch-surfing.) Yes 04/30/2024 Are you worried [...] on file Legal Sex Female 1:27 AM GRAVITY PROSPECTING SUPERVISOR Gender Identity Not on file Sexual [...] documented as of this encounter Care Teams Lead Engineer Relationship Specialty Start Date End Date Terence Smyth MD [facility] [address] [place] [address] PCP - General Family Medicine 04/27/24 Alma Valnecia, PT [address] [place] [address] Specialty Associate Professor Of Physics Physical Medicine and Rehabilitation 02/12/19 Leonor Draper MD [address] [place] [address] Physical Medicine and Rehabilitation 02/12/19 Jerri [place] [address] Specialty Associate Professor Of Physics Physical Medicine and Rehabilitation 02/12/19 Theresa Carpio MD [address] [place], [place] [id number] Assigned PCP 01/07/23 05/25/24 Rahul Orourke MD [address] [place] [address] [id number] Assigned Surgical Provider 02/04/23 Bina Chen ADMINISTRATIVE OFFICE MANAGER [address] [place] [address] Assigned PCP 05/26/24 documented as of this encounter
--- OUTSIDE RECORDS SUMMARY | 2024-08-10 12:56 | XMS_ITS | Clinical Summary ---
Author Organization [facility] Address [address] [place] [address] Care Team Providers Care Slubber Frame Changer Name Role Phone Alma Valencia Tyler PT Unavailable [phone] Leonor Draper MD Unavailable + [phone] Jerri Fink RN Unavailable + [phone] Rahul Orourke MD Unavailable [phone] eTrence Smyth MD Primary Care Provider [phone] Bina Chen INDUSTRIAL PSYCHOLOGY PROFESSOR Unavailable [phone] Allergies Active Allergy Reactions Criticality Noted Date [...] 6 hours as needed for moderate pain. 5 Active amoxicillin-clavu lanate (AUGMENTIN) 875-125 MG tabletIndications :Endometriosis Take 1 tablet by mouth 2 times daily. Active medroxyPROGESTERo ne (PROVERA) 10 MG tabletIndications :Endometriosis Take 2 tablets (20 mg) by mouth 3 times daily. 5 Active buPROPion (WELLBUTRIN XL) 300 MG 24 hr tabletIndications :Current severe 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 features, unspecified whether recurrent (H) Take 1 tablet (300 mg) by mouth daily. 30 tablet 1 5 Active diphenhydrAMINE (BENADRYL) 25 MG capsuleIndication s:Insomnia, unspecified type Take 1 capsule (25 mg) by mouth nightly as needed for sleep. 5 Active hydrOXYzine HCl (ATARAX) 25 MG tabletIndications [...] Overview (04/18/2019): Overview: IMO Update 01/11 Immunizations Immunization Administration Dates Next Due COVID-19 MONOVALENT 12+ (Pfizer) 05/21/2020,04/04 Flu, Unspecified 12/31/2011 [id number] Novel Flu- Nasal 01/23/2009 Influenza (H1N1) 01/23/2009 [...] in an abandoned building, in an overnight residential, or couch-surfing.) Yes 04/30/2024 Are you worried [...] on file Legal Sex Female 1:27 AM MECHANIST Gender Identity Not on file Sexual Orientation Not on file Occupation Industry Job Start Date Job End Date [employer] Not on file Not on file Not on file Last Filed Vital Signs Vital Sign Reading Time Taken Comments Blood Pressure 122/81 05/02/2024 8:00 AM MECHANIST Pulse 95 05/02/2024 8:00 AM MECHANIST Temperature 36.9 C (98.4 F) 05/02/2024 8:00 AM MECHANIST Respiratory Rate 16 04/29/2024 6:43 PM MECHANIST Oxygen Saturation 99% 05/02/2024 8:00 AM MECHANIST Inhaled Oxygen Concentration - - Weight 71 kg (156 lb 9.6 oz) 04/27/2024 8:42 PM MECHANIST Height 157.5 cm (5' 2) 04/27/2024 8:42 PM MECHANIST Body Mass Index 28.64 04/27/2024 8:42 PM MECHANIST Plan of Treatment Health Maintenance Due Date [...] COVID-19 Vaccine ( season) 2023 05/21/2020, 04/29/2020 ZOSTER IMMUNIZATION (1 of 2) 2024 INFLUENZA VACCINE (Season Ended) 2024 01/18/2019, 02/02/2018, 01/11/2017, Additional history exists MAMMO SCREENING 12/29/2024 12/29/2022 LIPID 04/30/2025 04/30/2024, 01/12/2017 TSH W/FREE T4 REFLEX 04/30/2025 04/30/2024, 06/09/2017, 01/12/2017 DIABETES SCREENING 04/30/2027 04/30/2024, 0 04/30/2024, 04/28/2024, Additional history exists ADVANCE CARE PLANNING 12/30/2027 12/29/2022 COLONOSCOPY 01/06/2028 01/05/2023 COLORECTAL CANCER SCREENING 01/06/2028 MENINGITIS IMMUNIZATION Aged Out 07/21/2011 No l onger eligible based on patient's age to complete this topic HEPATITIS C SCREENING Completed 05/28/2018 HIV SCREENING Completed 05/28/2018 HPV IMMUNIZATION Aged Out No longer e ligible based on patient's age to complete this topic Medical Devices Implanted Type Area Stained Glass Glazier Device Identifier Shelf Expiration Date Model / Serial / Lot Lens-Tecnis Multifocal 18.0 Implanted:Qty: 1 on 07/10/2012 by Inder Magdaleno MD at [facility] Left: Eye 03/11/2016 [id number] / [id number] / Procedures Procedure Name Priority Date/Time Associated Diagnosis Comments HEMOGLOBIN A1C Routine 04/30/2024 7:51 AM MECHANIST TSH WITH FREE T4 REFLEX Routine 04/30/2024 7:51 AM MECHANIST LIPID PROFILE Routine 04/30/2024 7:51 AM MECHANIST MA DIAGNOSTIC BILATERAL W/ SIXTO Routine 12/29/2022 1:16 PM CDT Mass of upper outer quadrant of left breast A PAP THIN LAYER SCREEN Routine 09/14/2018 3:12 PM CDT Screening for cervical cancer HPV HIGH RISK TYPES DNA CERVICAL Routine 09/14/2018 3:12 PM CDT Screening for cervical cancer HEPATITIS C (HIM EXTERNAL RESULT) Routine 05/28/2018 2:31 PM MECHANIST HIV ANTIGEN ANTIBODY COMBO Routine 05/28/2018 ASTHMA CONTROL TEST - HIM SCAN Routine 06/14/2016 1:45 PM CDT ASTHMA ACTION PLAN Routine 06/14/2016 9: 23 AM CDT from Last 3 Months or Most Recently Relevant to Health Maintenance Results * TSH with free T4 reflex and/or T3 as indicated (04/30/2024 7:51 AM MECHANIST) TSH 1.15 0.30 - 4.20 uIU/mL 04/30/2024 8:40 AM MECHANIST [facility] Blood BLOOD SPECIMEN / Unknown Venipuncture / Unknown 04/30/2024 7:51 AM MECHANIST 04/30/2024 8:06 AM MECHANIST us Adrienne Ledesma APRN INDUSTRIAL PSYCHOLOGY PROFESSOR LAB - BLOOD ORDER ADÁN Final Result UR [facility] [address] [facility], [address] [place] [address] * (ABNORMAL) Lipid panel (04/30/2024 7:51 AM MECHANIST) Cholesterol 238(H) <200 mg/dL 04/30/2024 8:40 AM MECHANIST [facility] Triglycerides 245(H) <150 mg/dL 04/30/2024 8:40 AM MECHANIST [facility] Direct Measure HDL 43(L) >=50 mg/dL 04/30/2024 8:40 AM MECHANIST [facility] LDL Cholesterol Calculated 146(H) <100 mg/dL 04/30/2024 8:40 AM MECHANIST [facility] Non HDL Cholesterol 195(H) <130 mg/dL 04/30/2024 8:40 AM MECHANIST [facility] Blood BLOOD SPECIMEN / Unknown Venipuncture / Unknown 04/30/2024 7:51 AM MECHANIST 04/30/2024 8:06 AM MECHANIST Narrative [facility] - 04/30/2024 8:40 AM MECHANIST Cholesterol Desirable: < 200 mg/dL Borderline High: [...] >= 220 mg/dL us Adrienne Ledesma APRN INDUSTRIAL PSYCHOLOGY PROFESSOR LAB - BLOOD ORDER ADÁN Final Result Performing Organization Address City/[facility] Co de Phone Number UR [facility] [address] [place] [address], Room [place] [phone] * Hemoglobin A1c (04/30/2024 7:51 AM MECHANIST) Estimated Average Glucose 100 <117 mg/dL 04/30/2024 8:23 AM MECHANIST [facility] Hemoglobin A1C 5.1 <5.7 % 04/30/2024 8:23 AM MECHANIST [facility] Comment: Normal <5.7% Prediabetes 5.7-6.4% Diabetes 6.5% or higher Note: Adopted from ADA consensus guidelines. Blood BLOOD SPECIMEN / Unknown Venipuncture / Unknown 04/30/2024 7:51 AM MECHANIST 04/30/2024 8:06 AM MECHANIST Adrienne Ledesma APRN INDUSTRIAL PSYCHOLOGY PROFESSOR LAB - BLOOD ORDER ADÁN Final Result Performing Organization Address [facility] de Phone Number UR LABORATORY [facility] [address] [place] [address], Room [place] [phone] [place] [address] * MA Diagnostic Bilateral w/Sixto (12/29/2022 1:16 [...] possibly an intramammary lymph node us Theresa Carpoi MD IMG MAMMOGRAPHY ORDERABLES Fi nal Result * (ABNORMAL) A pap thin layer screen with HPV - recommended age 30 - 65 years (select HPV order below) (09/14/2018 3:12 PM CDT) PAP ASC-US(A) YRN Lawson Report Patient Name: SEEMA CORDERO MR#: [id number] Specimen #: [id number] Collected: 09/14/2018 Received: 09/18/2018 Reported: 09/24/2018 14:24 [...] adenocarcinomas or other cancers. COLLECTION SITE: Client: [facility] Location: [facility] (B) The technical component of this testing was completed at the [facility], with the professional component performed at the [facility], [address] [place] [id number] ([phone]) COPATH Cytologic material (specimen) 09/14/2018 3:12 PM CDT 09/18/2018 8:30 AM CDT us Marina Alejandro NP LAB - OPTIME CLINICAL SPECIMEN F inal Result COPATH * HPV High Risk Types DNA Cervical (09/14/2018 3:12 PM CDT) HPV Source [facility] 09/14/2018 3:12 PM CDT [facility] HPV 16 DNA Negative NEG^Nega tive 09/25/2018 12:34 PM CDT [facility] HPV 18 DNA Negative NEG^Nega tive 09/25/2018 12:34 PM CDT [facility] Other HR HPV Negative NEG^Nega tive 09/25/2018 12:34 PM CDT [facility] Final Diagnosis This patient's sample is negative for HPV DNA. 09/25/2018 12:34 PM CDT [facility] Comment: This test was developed and its performance characteristics determined by the [facility], Molecular Diagnostics Laboratory. It has not been [...] Description Cervical Cells 09/14/2018 3:12 PM CDT [facility] Comment:[id number] Cervical Cells CERVIX UTERI STRUCTURE / Unknown 09/14/2018 3:12 PM CDT 09/17/2018 10:55 AM CDT us Marina Alejandro NP LAB - BLOOD ORDERABLES Final Res ult [facility] [address] [place] [address] [place] [id number] [phone] * Hepatitis C (HIM External Result) (05/28/2018 2:31 PM MECHANIST) Hep C HIM See Scanned Document [facility] 05/28/2018 2:31 PM MECHANIST Narrative [facility] - 05/28/2018 2:31 PM MECHANIST See Care Everywhere - [facility] us Provider Outside LAB - HIM EXTERNAL RESULT Final Result [facility] [address] [place] [address], [facility] [phone] * HIV Antigen Antibody Combo (05/28/2018) HIV Antigen Antibody Combo Nonreactive Nonreactive [facility] Comment:HIV Screen includes testing for HIV-1 antigen and antibodies to both HIV-1 and HIV-2. Blood specimen (specimen) 05/28/2018 Narrative [facility] - 05/28/2018 See Care Everywhere- [facility]. us Provider Outside LAB - BLOOD ORDERABLES Final Re sult [facility] [address] [place] [address], [facility] [phone] from Last 3 Months or Most Recently Relevant to Health Maintenance [place] Member Subscriber Plan / Payer (Ef fective 2024-Present) Name:Seema Lee Member ID:[id number] Relation to Subscriber:Self Name:Seema Lee Subscriber ID:[id number] Payer ID:[id number] (NAIC) Type:Indemnity Address: [address] [address] [facility] RISK MANAGEMENT Advance Directives For more information, please contact: [phone] * Full Code (Latest Code Status on [...] patie nt/ legal decision maker Care Teams Slubber Frame Changer Relationship Specialty Start Date End Date Terence Smyth MD [facility] [address] [place] [address] PCP - General Family Medicine 04/27/24 Alma Valencia, PT [address] [place] [address] [address] [place], [place] 394775 Specialty Chart Reader Physical Medicine and Rehabilitation 02/12/19 Leonor Draper MD [address] [place] [address] [id number] Physical Medicine and Rehabilitation 02/12/19 Jerri Fink RN RETIRED [place], [place] 997145 Specialty Chart Reader Physical Medicine and Rehabilitation 02/12/19 Rahul Orourke MD [address] [address] Assigned Surgical Provider 02/04/23 Bina Chen, INDUSTRIAL PSYCHOLOGY PROFESSOR [address] [address] Assigned PCP 05/26/24
--- OUTSIDE RECORDS SUMMARY | 2024-08-10 12:56 | XMS_ITS | Encounter Summary ---
Author Organization [facility] Address [facility] [place] [address] Care Team Providers Care Inspector Rag Sorting Name Role Phone Edilberto Lopez MD Primary Care Provider [phone] Edilberto Lopez MD Unavailable [phone] Alma Valencia PT Unavailable [phone] Leonor Draper MD Unavailable [phone] Jerri Fink RN Unavailable Leonor Draper MD Unavailable Claude Amaro MD Unavailable No Ref-Primary, Physician Primary Care Provider Theresa Carpio MD Primary Care Provider [phone] Theresa Carpio MD Unavailable [phone] Theresa Carpio MD Unavailable [phone] Paty Dacosta NP Unavailable Rahul Orourke MD Unavailable + [phone] Terence Smyth MD Primary Care Provider [phone] Bina Chen CNP Unavailable [phone] Reason for Visit * Reason Comments Medication Refill Valium Encounter Details Date Type Department Care Team (Late st Contact Info) Description 06/28/[address] 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 Gender Identity Not on file Sexual [...] Out COVID-19 02/03/2020 02/03/2020 02/04/2020 4:32 PM YOUTH CARE WORKER Rule Out COVID-12/12/2022 12/12/2022 12/12/2022 1:09 PM CDT COVID-19 12/12/2022 12/12/2022 01/02/2023 11:3 9 PM CDT Rule Out COVID-19 04/27/2024 04/27/2024 04/27/2024 8:24 PM YOUTH CARE WORKER Assessment Noted Time PHQ-9 Depression Total Score: 0 06/11/19 18 7:58 AM YOUTH CARE WORKER documented as of this encounter Care Teams Inspector Rag Sorting Relationship Specialty Start Date End Date Edilberto Lopez MD [address] [place] [address] [id number] PCP - General 05/30/12 06/23/22 No Ref-Primary, Physician PCP - General 06/24/22 12/25/22 Theresa Carpio MD [address] [place] [address] PCP - General Family Medicine 12/26/22 04/26/24 Terence Smyth MD [place] [id number] [address] [place] [address] PCP - General Family Medicine 04/27/24 Edilberto Lopez MD [address] [place] [address] Assigned PCP 12/29/13 07/18/20 Alma Valencia, PT [address] [place] [address] 960295 Specialty Linux Systems Engineer Physical Medicine and Rehabilitation 02/12/19 Leonor Draper MD [address] [place] [address] 500215 Physical Medicine and Rehabilitation 02/12/19 Jerri Fink, [place] [address] Specialty Linux Systems Engineer Physical Medicine and Rehabilitation 02/12/19 Leonor Draper MD [facility] [employer]entive[employer] [address] [place], [place] [id number] Assigned Neuroscience Provider 01/24/20 06/12/21 Claude Amaro MD [address] [place], [place] 539526 Assigned OBGYN Provider 01/24/20 04/04/20 Theresa Carpio MD [address] [place], [place] 211696 Assigned Pain Medication Provider 01/14/23 04/26/23 Theresa Carpio MD [address] [place], [place] 053236 Assigned PCP 01/07/23 05/25/24 Paty Dacosta NP [address] [place] [address] 118636 Assigned Surgical Provider 01/07/23 02/03/23 Rahul Orourke MD [address] [place] [address] 750826 Assigned Surgical Provider 02/04/23 Bina Chen LICENSED PSYCHOLOGIST [address] [place] [address] Assigned PCP 05/26/24 documented as of this encounter
--- OUTSIDE RECORDS SUMMARY | 2024-08-10 12:56 | XMS_ITS | Encounter Summary ---
Author Organization [place] Address [address] [place] [address] Care Team Providers Care Fitter Up Name Role Phone Alma Valencia Tyler PT Unavailable [phone] Leonor Draper MD Unavailable + [phone] Jerri Fink RN Unavailable + [phone] Theresa Carpio MD Primary Care Provider [phone] Theresa Carpio MD Unavailable [phone] Theresa Carpio MD Unavailable [phone] Paty Dacosta NP Unavailable [phone] Rahul Orourke MD Unavailable + [phone] Terence Smyth MD Primary Care Provider [phone] Bina Chen CEMENT OR CONCRETE FINISHING SUPERVISOR Unavailable [phone] Encounter Details Date Type Department Care Team (Late st Contact Info) Description 01/04/[address] 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 Gender Identity Not on file Sexual Orientation [...] Out COVID-19 04/27/2024 04/27/2024 04/27/2024 8:24 PM TOP KNITTER Assessment Noted Time PHQ-9 Depression Total Score: 12/27/19 11:15 AM CDT documented as of this encounter Care Teams Fitter Up Relationship Specialty Start Date End Date Theresa Carpio MD [address] [place] [address] PCP - General Family Medicine 12/26/22 04/26/24 Terence Smyth MD [facility] [address] [place] [address] PCP - General Family Medicine 04/27/24 Alma Valencia, PT [address] [place] [address] [address] [place], [place] 868[address] Specialty Head Shipper Physical Medicine and Rehabilitation 02/12/19 Leonor Draper MD [address] [place], [place] 3634[address] Physical Medicine and Rehabilitation 02/12/19 Jerri Fink RN RETIRED [place], [place] 87[address] Specialty Head Shipper Physical Medicine and Rehabilitation 02/12/19 Theresa Carpio MD [address] [place] [address] Assigned Pain Medication Provider 01/14/23 04/26/23 Theresa Carpio MD [address] [place] [address] Assigned PCP 01/07/23 05/25/24 Paty Dacosta FOOD PREPARER [address] [facility] [place] [address] Assigned Surgical Provider 01/07/23 02/03/23 Rahul Orourke MD [address] 443906 Assigned Surgical Provider 02/04/23 Bina Chen CNP [address] [place] [address] Assigned PCP 05/26/24 documented as of this encounter
--- OUTSIDE RECORDS SUMMARY | 2024-08-10 12:56 | XMS_ITS | Encounter Summary ---
Author Organization [place] Address [facility] [address] Care Team Providers Care Pickling Solution Maker Name Role Phone Edilberto Lopez MD Primary Care Provider [phone] Edilberto Lopez MD Unavailable [phone] Alma Valencia PT Unavailable [phone] Leonor Draper MD Unavailable Jerri Fink RN Unavailable Leonor Draper MD Unavailable Claude Amaro MD Unavailable No Ref-Primary, Physician Primary Care Provider Theresa Carpio MD Primary Care Provider [phone] Theresa Carpio MD Unavailable [phone] Theresa Carpio MD Unavailable [phone] Paty Dacosta NP Unavailable Rahul Orourke MD Unavailable + [phone] Terence Smyth MD Primary Care Provider [phone] Bina Chen CNP Unavailable [phone] Reason for Visit * Reason Comments Medication Refill Ambien Encounter Details Date Type Department Care Team (Late st Contact Info) Description 11/18/2015 Refill [facility] [address] [place] [address] Edilberto Lopez MD [address] [facility] [place] [address] Medication Refill (Ambien) Social History Tobacco Use Types Packs/Day Years Used Date Smoking Tobacco: Former Cigarettes Q uit: 07/29/1996 Smokeless Tobacco: Never Comments:no passive exposure Alcohol Use Standard Drinks/Week Comments No 0 (1 standard drink = 0.6 oz pur e alcohol) Comments No Sex and Gender Information Value Date Recorded Sex Assigned at Not on file Legal Sex Female 1:27 AM [place] ENGINEER Gender Identity Not on file Sexual Orientation Not on file 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 file [...] Out COVID-19 02/03/2020 02/03/2020 02/04/2020 4:32 PM [place] ENGINEER Rule Out COVID-19 12/12/2022 12/12/2022 12/12/2022 1:09 PM CDT COVID-19 12/12/2022 12/12/2022 01/02/2023 11:3 9 PM CDT Rule Out COVID-19 04/27/2024 04/27/2024 04/27/2024 8:24 PM [place] ENGINEER Assessment Noted Time PHQ-9 Depression Total Score: 2 10/28/19 16 7:18 AM CDT documented as of this encounter Care Teams Pickling Solution Maker Relationship Specialty Start Date End Date Edilberto Lopez MD [address] [place] [address] PCP - General 05/30/12 06/23/22 No Ref-Primary, Physician PCP - General 06/24/22 12/25/22 Theresa Carpio MD [address] [place] [address] PCP - General Family Medicine 12/26/22 04/26/24 Terence Smyth MD [place] [id number] [address] [place] [address] PCP - General Family Medicine 04/27/24 Edilberto Lopez MD [address] [place] [address] Assigned PCP 12/29/13 07/18/20 Alma Valnecia, PT [address] [place] [address] [address] [place] [address] Specialty Sanding Machine Tender Physical Medicine and Rehabilitation 02/12/19 Leonor Draper MD [address] [place] [address] Physical Medicine and Rehabilitation 02/12/19 [place] [address] Specialty Sanding Machine Tender Physical Medicine and Rehabilitation 02/12/19 Leonor [place] MD [facility] [address] [place] [address] Assigned Neuroscience Provider 01/24/20 06/12/21 Claude Amaro MD [address] [place] [address] Assigned OBGYN Provider 01/24/20 04/04/20 Theresa Carpio MD [address] [place] [address] Assigned Pain Medication Provider 01/14/23 04/26/23 Theresa Carpio MD [address] [place] [address] Assigned PCP 01/07/23 05/25/24 Paty Dacosta NP [address] [place] [address] Assigned Surgical Provider 01/07/23 02/03/23 Rahul Orourke MD [address] [place] [address] 842736 Assigned Surgical Provider 02/04/23 Bina Chen BUSINESS PROCESS CONSULTANT [address] [place] [address] Assigned PCP 05/26/24 documented as of this encounter
--- NOTE | 2024-08-10 13:31 | CRLHL7_ITS ---
For Patients: As a result of the Cures Act, medical imaging exams and procedure reports are released immediately into your electronic medical record. You may view this report before your referring provider. If you have questions, please contact your health care provider. Indication: Injury and pain. Technique: Right elbow 3 views. Comparison: None. Findings: Bones: Alignment is normal. No fractures or bone lesions. Joint spaces: Unremarkable. No sign of joint effusion. Soft tissues: Unremarkable. Impression: No sign of acute fracture or elbow joint effusion. If clinical symptoms persist, consider repeat radiographs in 7-10 days. Dictated by Janice Serrato MD @ 08/10/2024 2:31:23 PM (Electronically Signed)
--- NOTE | 2024-08-10 13:31 | CRLHL7_ITS ---
For Patients: As a result of the Cures Act, medical imaging exams and procedure reports are released immediately into your electronic medical record. You may view this report before your referring provider. If you have questions, please contact your health care provider. Indication: Tripped down stairs. Technique: Right wrist three views Comparison: None. Findings: No acute fractures or bone lesions. Mild widening of the scapholunate distance suggests possible scapholunate dissociation. Mild soft tissue swelling about the wrist. Impression: No acute fractures. Mild widening of the scapholunate distance suggests possible scapholunate dissociation. Dictated by Atul Brower MD @ 08/10/2024 2:32:20 PM (Electronically Signed)
--- NOTE | 2024-08-10 13:31 | CRLHL7_ITS ---
For Patients: As a result of the Cures Act, medical imaging exams and procedure reports are released immediately into your electronic medical record. You may view this report before your referring provider. If you have questions, please contact your health care provider. Indication: Fall down steps. Technique: Right shoulder three views Comparison: None. Findings: No findings for fracture or dislocation. Minor glenohumeral and AC joint degenerative changes. No focal soft tissue. Impression: No acute bone or joint abnormalities. Dictated by Atul Brower MD @ 08/10/2024 2:30:49 PM (Electronically Signed)
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
== END 2024-08-10 14:37 | disposition home or self-care (01) ==
PROVIDERS: Emergency Provider Internal Medicine; PCP Family Medicine
DX: S49.91XA Unspecified injury of right shoulder and upper arm, initial encounter (principal); M79.601 Pain in right arm
CPT/HCPCS: 73030; 73080; 73110; 99283

== ENCOUNTER 2024-08-20 12:51 | Outpatient (CLI) | payer BC, SELFPAY ==
--- NOTE | 2024-08-20 13:00 | MR_ITS ---
[facility] [address] [facility] [address] Phone:?[phone] Fax:?[phone] Referring Physician Information: Vaibhav De Souza M.D. [id number] [address] Phone:?[phone] Fax:?[phone] Patient:Beverly Powers D.O.B:?1975 Sex:?Female Phone:?[phone] [facility] MRN:?[id number] Exam Date:?08/20/2024 EXAM: MRI of the RIGHT SHOULDER, without contrast CLINICAL INFORMATION: Female, 48 years old, with right shoulder pain. INDICATION: Evaluate for rotator cuff tear. PRIOR SURGERY: None reported. PLAIN FILMS: None available. COMPARISONS: No prior MRIs available. TECHNICAL INFORMATION: Using a 1.5T MR scanner and a localizing surface coil: coronal obliques: PD, T2, STIR sagittal obliques: PD, T2 axials: PD, T2 SEDATION: None CONTRAST: None FINDINGS: Bones: Proximal humerus: No fracture or marrow edema/pathology. No humeral Hill-Sachs or reverse Hill-Sachs lesion/impaction or contusion. Glenoid: No fracture or marrow edema/pathology. No osseous Bankart lesion. Rotator cuff and muscles/tendons: Supraspinatus: Mild supraspinatus tendinopathy, without tendon tear or muscle atrophy. Infraspinatus: No tendinopathy, tear or atrophy. Teres minor: No tendinopathy, tear or atrophy. Subscapularis: Mild tendinopathy of the superior distal subscapularis, without tendon tear or muscle atrophy. Deltoid: No strain or atrophy. Coracoacromial arch: Acromion morphology: The acromion has type II morphology. No discrete subacromial osseous spur or os acromiale. Acromiohumeral space: The acromiohumeral space measures 5.6 mm at its narrowest point (osseous distance). Coracohumeral space: The coracohumeral space is within normal limits. Acromioclavicular joint: Joint: Mild AC joint arthropathy, with 3 mm of inferior osteophytosis, which effaces the underlying supraspinatus (coronal T2 series 7 image 11). Ligaments: Coracoclavicular ligaments are intact. Bursae: Subacromial-subdeltoid: Mild subacromial subdeltoid bursal fluid/bursitis. Subcoracoid: No convincing subcoracoid bursal thickening/bursitis. Biceps tendon: The long head of the biceps tendon is present within the bicipital groove. The intra-articular and extra-articular segments are intact without tendinosis, tenosynovitis, or displacement. Glenohumeral joint: Effusion/cyst: No significant glenohumeral joint effusion. Articular cartilage: Humeral head: No osteochondral abnormalities. Glenoid: No osteochondral abnormalities. Loose bodies: No discrete intra-articular body within the joint. Labrum:?No discrete labral tear or paralabral cyst identified on this non- arthrographic study. Inferior glenohumeral ligament/axillary pouch:?Intact. The axillary pouch is normal in thickness and signal. No evidence of adhesive capsulitis or capsular injury. IMPRESSION: 1. Mild supraspinatus & subscapularis tendinopathy. No rotator cuff tendon tear. 2. Mild narrowing of the acromiohumeral space with mild subacromial-subdeltoid bursitis. Additionally, there is mild AC joint arthropathy, which effaces the underlying supraspinatus. 3. No tendinopathy, displacement, or tear of the biceps long head tendon. 4. No labral tear or paralabral cyst. 5. No full-thickness chondral defect or evidence of glenohumeral joint osteoarthritis. BC Electronically signed on 08/20/2024 7:30:00 PM by Chilango Khoury M.D.
== END 2024-08-20 12:52 | disposition home or self-care (01) ==
LOC: MRI 12:52
PROVIDERS: PCP Family Medicine; Visit Provider Orthopaedic Surgery
DX: M25.511 Pain in right shoulder (principal); M75.51 Bursitis of right shoulder; S49.91XA Unspecified injury of right shoulder and upper arm, initial encounter
CPT/HCPCS: 73221

== ENCOUNTER 2024-12-13 11:03 | Outpatient (CLI) | payer BC, SELFPAY | END 2024-12-13 11:04 | disposition home or self-care (01) | PROVIDERS: PCP Family Medicine; Visit Provider Family Medicine | DX: R63.5 Abnormal weight gain (principal); Z13.1 Encounter for screening for diabetes mellitus | CPT/HCPCS: 82533; 84439; 84443 ==